=== PATIENT | male | born 1945 | race Caucasian/White ===

== ENCOUNTER → 2023-08-15 12:14 | Outpatient (REF) | payer OTHER, SELFPAY | LOC: HWRAD 12:14 | PROVIDERS: ATTENDING PHYSICIAN Specialist; FAMILY PHYSICIAN Family Medicine | DX: C67.9 Malignant neoplasm of bladder, unspecified (principal) | CPT/HCPCS: 74177; Q9967 ==

== ENCOUNTER → 2023-08-24 12:54 | Outpatient (REF) | payer OTHER, SELFPAY | LOC: RAD 12:54 | PROVIDERS: ATTENDING PHYSICIAN Internal Medicine Critical Care Medicine; FAMILY PHYSICIAN Family Medicine | DX: R91.1 Solitary pulmonary nodule (principal) | CPT/HCPCS: 71250 ==

== ENCOUNTER 2023-09-27 06:22 | Day surgery (SDC) | payer OTHER, SELFPAY ==
[2023-09-21 07:17] VITALS: BMI 28.9
[2023-09-21 08:57] LABS: Hematocrit 43.1 % (39.0-52.0); Hemoglobin 13.9 g/dL (13.0-18.0); Mean Corp Hgb Conc. 32.3 g/dL (33.0-37.0); Mean Corpuscular Hgb 30.3 pg (27.0-31.0); Mean Corpuscular Volume 93.9 fL (80.0-94.0); Mean Platelet Volume 9.4 fL (7.4-10.4); Platelet Count 223 10^3/uL (130-400); Red Blood Cell Count 4.59 10^6/uL (4.70-6.10); Red Cell Dist. Width 13.6 % (11.5-14.5); White Blood Cell Count 8.1 10^3/uL (4.8-10.8)
[2023-09-21 09:05] LABS: APTT 30.1 Sec (23.4-35.0); INR 0.97; PT 12.9 Sec (11.4-14.6)
[2023-09-21 09:31] LABS: Blood Urea Nitrogen 19 mg/dl (9-20); Calcium 9.5 mg/dl (8.4-10.2); Carbon Dioxide 25 mmol/L (22-30); Chloride 104 mmol/L (98-107); Estimated Creatinine Clearance 78 ml/min; Glucose 127 mg/dl (70-99); Potassium 4.6 mmol/L (3.5-5.1); Sodium 138 mmol/L (135-145); eGFR > 60.00
--- NOTE | 2023-09-21 12:03 | PTCARENOTE ---
Patients 09/20 EKG abnormal- reviewed by Dr. Wang- no additional interventions required
[2023-09-27] VITALS (16 sets, daily range): BP systolic 143–207; BP diastolic 73–112; BMI 28.9
[2023-09-27] MEDS: CYSVIEW KIT 100 MG INTRAVES (10:18)
[2023-09-27 10:28] LABS: Glucose - Point of Care 127 mg/dl (70-99)
[2023-09-27] MEDS: NORMOSOL-R 1000 IV (10:37)
[2023-09-27 12:37] LABS: Glucose - Point of Care 122 mg/dl (70-99)
[2023-09-27 14:06] LABS: Glucose - Point of Care 105 mg/dl (70-99)
[2023-09-27] MEDS: SYRINGE NON-PUMP 50 ML IRRIG ×2 (14:16→14:17)
[2023-09-27] MEDS: SYRINGE NON-PUMP 50 MG IRRIG ×2 (14:16→14:17)
[2023-09-27] MEDS: VALIUM INJECTION 5 MG IV (14:26)
[2023-09-27] MEDS: Pyridium 200 MG PO (14:34)
[2023-09-27] MEDS: DILAUDID 0.5 MG IV (15:02)
== END 2023-09-27 16:46 | disposition home or self-care (01) ==
LOC: SDS 06:22
PROVIDERS: ATTENDING PHYSICIAN Specialist; FAMILY PHYSICIAN Family Medicine
DX: C67.7 Malignant neoplasm of urachus (principal)
CPT/HCPCS: 52235; C9738; 88307; 36415; 80048; 82962; 85027; 85610; 85730; 93005; A9589; J9201

== ENCOUNTER → 2023-10-24 08:58 | Outpatient (REF) | payer OTHER, SELFPAY ==
[2023-10-24 09:25] VITALS: BP 160/80; BP_SYST 72
[2023-10-24] MEDS: ANCEF 10 IV (09:51)
[2023-10-24 11:10] VITALS: BP 179/99; BP_SYST 78
[2023-10-24 11:25] VITALS: BP 183/94; BP_SYST 75
== END ==
LOC: RADI 08:58
PROVIDERS: ATTENDING PHYSICIAN Internal Medicine Hematology & Oncology; FAMILY PHYSICIAN Family Medicine
DX: C67.9 Malignant neoplasm of bladder, unspecified (principal)
CPT/HCPCS: 36561; 76937; 77001; 99152; 99153; C1788

== ENCOUNTER → 2023-11-06 11:59 | Outpatient (REF) | payer OTHER, SELFPAY ==
[2023-11-06 12:14] LABS: ALT (SGPT) 25 U/L (0-50); AST (SGOT) 28 U/L (17-59); Albumin 3.7 g/dl (3.5-5.0); Alkaline Phosphatase 143 U/L (38-126); Blood Urea Nitrogen 12 mg/dl (9-20); Calcium 9.4 mg/dl (8.4-10.2); Carbon Dioxide 26 mmol/L (22-30); Chloride 101 mmol/L (98-107); Glucose 140 mg/dl (70-99); Potassium 4.5 mmol/L (3.5-5.1); Sodium 138 mmol/L (135-145); Total Bilirubin 0.5 mg/dl (0.2-1.3); Total Protein 6.4 g/dl (6.3-8.2); eGFR > 60.00
[2023-11-06 12:20] LABS: % Basophils 0.7 % (0-2); % Eosinophils 4.1 % (0-6); % Immature Granulocytes 0.8 % (0-0.5); % Lymphocytes 16.2 % (20.5-51.1); % Monocytes 8.1 % (1.7-9.3); % Neutrophils 70.1 % (42.2-75.2); Absolute Basophils 0.1 10^3/uL (0-0.2); Absolute Eosinophils 0.4 10^3/uL (0-0.7); Absolute Immature Granulocytes 0.1 10^3/uL (0-0.05); Absolute Lymphocytes 1.6 10^3/uL (1.2-3.4); Absolute Monocytes 0.8 10^3/uL (0.1-0.6); Absolute Neutrophils 6.8 10^3/uL (1.4-6.5); Hematocrit 38.5 % (39.0-52.0); Hemoglobin 12.8 g/dL (13.0-18.0); Mean Corp Hgb Conc. 33.2 g/dL (33.0-37.0); Mean Corpuscular Hgb 30.5 pg (27.0-31.0); Mean Corpuscular Volume 91.9 fL (80.0-94.0); Nucleated Red Blood Cells % 0 % (-); Platelet Count 341 10^3/uL (130-400); Red Blood Cell Count 4.19 10^6/uL (4.70-6.10); Red Cell Dist. Width 13.8 % (11.5-14.5); White Blood Cell Count 9.7 10^3/uL (4.8-10.8)
== END ==
LOC: OIDL 11:59
PROVIDERS: ATTENDING PHYSICIAN Internal Medicine Hematology & Oncology
DX: C67.9 Malignant neoplasm of bladder, unspecified (principal); R91.1 Solitary pulmonary nodule; C67.7 Malignant neoplasm of urachus
CPT/HCPCS: 80053; 85025

== ENCOUNTER → 2024-01-24 08:51 | Outpatient (REF) | payer OTHER, SELFPAY | LOC: HWRAD 08:51 | PROVIDERS: ATTENDING PHYSICIAN Nurse Practitioner Adult Health; FAMILY PHYSICIAN Family Medicine; REFERRING PHYSICIAN Internal Medicine Critical Care Medicine | DX: C67.9 Malignant neoplasm of bladder, unspecified (principal); R91.1 Solitary pulmonary nodule; C67.7 Malignant neoplasm of urachus | CPT/HCPCS: 71260; 74177; Q9967 ==

== ENCOUNTER 2024-05-03 05:41 | Day surgery (SDC) | payer OTHER, SELFPAY ==
[2024-04-18 10:44] LABS: Hemoglobin 13.9 g/dL (13.0-18.0); Mean Corp Hgb Conc. 31.6 g/dL (33.0-37.0); Mean Corpuscular Hgb 32.5 pg (27.0-31.0); Mean Corpuscular Volume 102.8 fL (80.0-94.0); Mean Platelet Volume 9.7 fL (7.4-10.4); Platelet Count 175 10^3/uL (130-400); Red Blood Cell Count 4.28 10^6/uL (4.70-6.10); Red Cell Dist. Width 12.9 % (11.5-14.5); White Blood Cell Count 6.7 10^3/uL (4.8-10.8)
[2024-04-18 11:32] LABS: Blood Urea Nitrogen 14 mg/dl (9-20); Calcium 9.2 mg/dl (8.4-10.2); Carbon Dioxide 31 mmol/L (22-30); Chloride 101 mmol/L (98-107); Glucose 137 mg/dl (70-99); Potassium 4.5 mmol/L (3.5-5.1); Sodium 138 mmol/L (135-145); eGFR > 60.00
[2024-04-18 12:31] VITALS: BMI 29.3
--- NOTE | 2024-04-18 14:46 | PTCARENOTE ---
Abnormal EKG reviewed by Dr. Marin, no further action requested.
[2024-05-03] VITALS (9 sets, daily range): BP systolic 121–175; BP diastolic 66–89; BMI 29.3
[2024-05-03 06:37] LABS: Glucose - Point of Care 143 mg/dl (70-99)
[2024-05-03] MEDS: NORMOSOL-R/PLASMALYTE-A 1000 IV (06:41)
[2024-05-03 07:50] LABS: Glucose - Point of Care 176 mg/dl (70-99)
[2024-05-03] MEDS: Pyridium 200 MG PO (08:01)
== END 2024-05-03 09:08 | disposition home or self-care (01) ==
LOC: SDS 05:41
PROVIDERS: ATTENDING PHYSICIAN Specialist; FAMILY PHYSICIAN Family Medicine
DX: C67.9 Malignant neoplasm of bladder, unspecified (principal)
CPT/HCPCS: 52204; 88305; 36415; 80048; 82962; 85027; 93005

== ENCOUNTER → 2024-06-05 07:57 | Outpatient (REF) | payer OTHER, SELFPAY | LOC: RAD 07:57 | PROVIDERS: ATTENDING PHYSICIAN Internal Medicine Hematology & Oncology; FAMILY PHYSICIAN Family Medicine | DX: C67.9 Malignant neoplasm of bladder, unspecified (principal); C67.7 Malignant neoplasm of urachus; R91.1 Solitary pulmonary nodule; I26.99 Other pulmonary embolism without acute cor pulmonale | CPT/HCPCS: 71260; 74177; Q9967 ==

== ENCOUNTER → 2024-09-09 07:57 | Outpatient (REF) | payer OTHER, SELFPAY | LOC: RAD 07:57 | PROVIDERS: ATTENDING PHYSICIAN Internal Medicine Hematology & Oncology; FAMILY PHYSICIAN Family Medicine | DX: C67.9 Malignant neoplasm of bladder, unspecified (principal); R91.1 Solitary pulmonary nodule; C67.7 Malignant neoplasm of urachus; I26.99 Other pulmonary embolism without acute cor pulmonale | CPT/HCPCS: 71260; 74177; Q9967 ==

== ENCOUNTER 2024-11-03 18:13 | Inpatient (IN) | payer OTHER, SELFPAY ==
[2024-11-03] VITALS (13 sets, daily range): BP systolic 102–178; BP diastolic 60–128
--- NOTE | 2024-11-03 15:41 | ED.GENMED ---
History of Present Illness
General
Chief Complaint: Weakness
Source: patient and ambulance crew
Time Seen by Provider: 11/03/24 15:32
History of Present Illness
History of Present Illness:
78-year-old male with past medical history of hypertension, hyperlipidemia, insulin-dependent diabetes, previous bladder cancer, PE presenting to the emergency department from home for reported generalized weakness and a few episodes of nonbloody
nonbilious emesis and intermittent nausea. Patient reportedly took 2 tablets of Advil around lunchtime but no other medications today, EMS reports family was concerned that patient had not eaten or drank much today. They report his blood sugar at
time of their evaluation was 180. At present time during my exam patient's only concern is feeling weak. He denies any pain, chest pain, abdominal pain, current nausea, urinary symptoms, bowel changes, other URI-like symptoms. No known sick
contacts, recent travel or recent antibiotics. Patient finished his chemotherapy treatments for his bladder cancer back in December or January.
Past History
Past History
ED Past Medical History: Cancer, HTN, Hypercholesterolemia, IDDM (No oral meds for this) and Other (Pulmonary embolism)
ED Past Surgical History: Appendectomy, Urological and Other
Social History
Tobacco: Former smoker
Alcohol: None
Drug: None
Personal:
Living: with family
Review of Systems
Review of Systems
All Other Systems: ROS reviewed and negative except as documented in HPI and ROS
Phy Exam
Physical Exam
Physical Exam:
GENERAL: Alert , ill-appearing, diaphoretic, very hot to the touch
HEAD: Normocephalic atraumatic
EYE: Clear conjunctiva
NECK: Supple, no meningismus
ENT: o/p clr, mmm.
CARDIAC: Tachycardic rate as high as 135 bpm
LUNGS: Clear breath sounds bilaterally, no acute respiratory distress, no wheezes/rales/rhonchi
ABDOMEN: Soft, without focal tenderness, no r/g, no cvat
NEUROLOGICAL: Alert and oriented x3
SKIN: Hot to the touch, clammy, skin intact.
MUSCULOSKELETAL: No edema, well perfused.
PSYCH: Normal and appropriate interaction.
Scores
Heart Failure Risk
Heart Failure Risk Score: Not Applicable
Heart Score for Chest Pain Patients
STEMI patient?: Not applicable
Withdrawal Assessment of Alcohol
Withdrawal Assessment Completed?: Not applicable
Sepsis
Sepsis Screening
Sepsis Assessment: Severe Sepsis
Sepsis Screening: Lactate >2mmol/L and Worsening O2 Saturation
Sepsis Screen
Sepsis Screen: Severe Sepsis
Date: 11/03/24
Time: 22:51
Course
Orders/Labs/Results
Orders:
Orders
11/03/24 Dinner
Cholesterol Lowering
Cholesterol Lowering: Sodium, 2 Gram
1800 abraham/15 CHO Diabetic
11/03/24 15:36
Electrocardiogram (*1) Urgent
Reason for Study: Other
Other Reason for Exam: Possible Sepsis
EKG- Treatment ONCE
IV Insert/Care/Rem.- Treatment PRN
O2 Therapy [RESP] Urgent
Titrate/Wean O2 to maintain O2 sat greater than (%): 93
Special Instructions: TO MAINTAIN CONTINUOUS O2 SATS > OR = 93%
11/03/24 15:38
0.9% Sodium Chloride 1000 ml [Nss] 2,000 ml IV NOW STA
Acetaminophen [Tylenol] 1,000 mg PO NOW STA
CR Chest Portable - 1 View Urgent
Comment:
Reason For Exam: fever, weak
Reason Study Needs to be Portable: Unable to Transport
11/03/24 15:44
Basic Metabolic Panel Urgent
Complete Blood Count/With Diff Urgent
Lactic Acid Q4H
Comment: ON ICE, CANCEL 2ND ORDER IF FIRST LACTIC ACID LEVEL <2
Urinalysis Reflex To Culture Urgent
Date Specimen was Collected: 11/03/24
Time Specimen was Collected: 15:36
Urine Microscopic Reflex Cult Urgent
Blood Culture Q20M
KAMALJIT Source: Blood/Venous
Specimen Description:
Comment: Urgent from separate sites. If patient screens positive for possible sepsis
Blood Culture Q20M
KAMALJIT Source: Blood/Venous
Specimen Description:
Comment: Urgent from separate sites. If patient screens positive for possible sepsis
Urine Culture Urgent
KAMALJIT Source: U
Specimen Description:
Date Specimen was Collected: 11/03/24
Time Specimen was Collected: 15:36
11/03/24 15:49
Acetaminophen 1000MG/100Ml [Ofirmev] 1,000 mg in 100 ml IV ONCE
Acetaminophen IV Indication:: No OK & No Enteral Access
Ondansetron Injectable [Zofran] 4 mg IV NOW STA
11/03/24 16:27
0.9% Sodium Chloride 1000 ml [Nss] 1,000 ml IV BOLUS
11/03/24 16:49
Piperacillin/Tazo 3.375 Gram [Zosyn] 3.375 gram in 50 ml IV NOW
11/03/24 17:08
CT Abd/pel Without Iv Or Oral Urgent
Comment:
Reason For Exam: fever, ? UTI, vomiting
11/03/24 17:46
Vancomycin [Vancocin] 2,000 mg 0.9% Sodium Chloride 500 ml [Nss] 500 ml IV NOW
11/03/24 17:59
Admit/Transfer Patient As Directed
Co-Sign Provider:
Level of Care: Inpatient admission
Assign to:: ICU
Physician / Group: [email or web address]
Diagnosis: severe sepsis , possible colitis vs UT vs PNA , New AF
Reason for Hospitalization: severe sepsis , possible colitis vs UT vs PNA , New AF
Expected length of stay greater than two midnights?: Yes
ELOS- Estimated Length of Stay in days: 4
I certify the patient meets the requirements for IP care: Yes
11/03/24 18:02
Code Status As Directed
Resuscitation Status: Full Code
11/03/24 18:34
COVID-19 Antigen Urgent
Source: Nasal Swab
11/03/24 19:56
Lactic Acid Q4H
Comment: ON ICE, CANCEL 2ND ORDER IF FIRST LACTIC ACID LEVEL <2
11/03/24 22:08
Lactic Acid Q4H
Comment: repeat q4 hours x 4 or until less than 2 mmol/L
Blood Culture Q30M
KAMALJIT Source: Blood/Venous
Specimen Description:
Comment: IF NOT OBTAINED IN ED
Aspirin Low Dose EC [Aspir Low (Enteric Coated)] 81 mg PO HS
Dextrose 50%-Water [Dextrose 50% Syringe] 12.5 grams IV [id number] PRN
Glucagon [GlucaGen] 1 mg IM PRN PRN
Lactated Ringers [Lr] 1,000 ml IV 80 mls/hr
Lisinopril [Zestril] 10 mg PO HS
Metoprolol [Lopressor] 5 mg IV Q4HPRN PRN
11/03/24 22:08
Urinalysis Reflex To Culture Urgent
Activity As Directed
Activity Level: With Assistance
Bedside Glucose Monitoring As Directed
Frequency: AC&HS
Additional Instructions:: Change to q6h if pt on TPN, tube feeding or not eating
Intake/ Output As Directed
Frequency: Per unit guidelines
Vital Signs As Directed
Frequency: Per unit guidelines
Weight As Directed
Frequency: Daily
DX Deep Vein Thrombosis Video Routine
11/03/24 22:38
Blood Culture Q30M
KAMALJIT Source: Blood/Venous
Specimen Description:
Comment: IF NOT OBTAINED IN ED
11/04/24 00:00
Piperacillin/Tazo 3.375 Gram [Zosyn] 3.375 gram in 50 ml IV Q6H
11/04/24 02:08
Lactic Acid Q4H
Comment: repeat q4 hours x 4 or until less than 2 mmol/L
11/04/24 06:00
Echo 2D MMode Color/Doppler IN AM
Reason for Study: new AF
Complete Blood Count/No Diff IN AM
Comprehensive Metabolic Panel IN AM
Glycohemoglobin (HgbA1c) IN AM
11/04/24 06:08
Lactic Acid Q4H
Comment: repeat q4 hours x 4 or until less than 2 mmol/L
11/04/24 07:30
Insulin Aspart Corrective Low [Novolog Flexpen-Low Resistance] See Protocol SC AC
11/04/24 10:08
Lactic Acid Q4H
Comment: repeat q4 hours x 4 or until less than 2 mmol/L
11/04/24 18:00
Enoxaparin Sodium [Lovenox] 40 mg SC QPM
Abnormal Lab Results
11/03/24 11/03/24
15:43 15:44
WBC 17.1 H 10^3/uL
(4.8-10.8)
Abs Immat Gran (auto) 0.9 H 10^3/uL
(0-0.05)
Absolute Neuts (auto) 14.9 H 10^3/uL
(1.4-6.5)
Absolute Lymphs (auto) 0.4 L 10^3/uL
(1.2-3.4)
Absolute Monos (auto) 0.8 H 10^3/uL
(0.1-0.6)
Immature Gran % 5.1 H %
(0-0.5)
Neutrophils % 87.4 H %
(42.2-75.2)
Lymphocytes % 2.4 L %
(20.5-51.1)
Carbon Dioxide 17 L mmol/L
(22-30)
BUN 23 H mg/dl
(9-20)
Glucose 193 H mg/dl
(70-99)
Lactic Acid 2.9 H mmol/L
(0.7-2.0)
Urine Ketones 2+ A
(Negative)
Ur Occult Blood Reflex 4+ A
(Negative)
Leukocyte Esterase Rfl 1+ A
(Negative)
Urine RBC 26-30 A /HPF
(0-2)
Urine WBC (Reflex) 11-15 A /HPF
(0-5)
Urine Bacteria (Reflex) Few A
(Negative)
Urine Albumin (Reflex) 3+ A
(Neg - Trace)
POC Glucose 173 H mg/dl
(70-99)
11/03/24 15:44
11/03/24 15:44
Vital Signs
Initial and Last Documented VS:
Initial Vital Signs
Temp Pulse Resp BP Pulse Ox
103.1 F H 142 30 167/68 94
11/03/24 15:38 11/03/24 15:38 11/03/24 15:38 11/03/24 15:38 11/03/24 15:38
Last Documented Vital Signs
Temp Pulse Resp BP Pulse Ox
99.3 F 107 29 113/64 92
11/03/24 22:43 11/03/24 22:34 11/03/24 22:34 11/03/24 22:34 11/03/24 22:37
MDM/Problems Addressed
Differential Diagnosis Includes:
Sepsis/bacteremia
Urinary tract infection
Pneumonia
COVID
Other viral etiology
Intra-abdominal process
Hyperglycemia/diabetic complication
Heat exhaustion/other heat related illness
New onset atrial fibrillation likely induced by infectious source
MDM/Problems Addressed:
78-year-old male presenting to the ER for evaluation of reported generalized weakness, nausea and vomiting at home, found to be profoundly febrile here at 103.1, diaphoretic. Patient ill-appearing but maintaining airway, speaking full sentences and
answering questions appropriately. Sepsis workup initiated. Tylenol ordered for pyrexia. Anticipate patient will need admission.
Chronic conditions affecting care: DM and Cancer
*Radiology
Radiology exam reviewed: preliminary read by ED provider (Questionable right midlung infiltrate) and radiology read reviewed
*Pulse Oximetry
SaO2: 94
Oxygen Mode of Delivery: Room air
Patient hypoxic: no
*EKG
Interpreted by ED Provider?: Yes
Heart Rate: 134
Rate: tachycardiac
Rhythm: a-fib
[place]: left axis deviation
QRS Pattern: left bundle branch block and right bundle branch block
*Reading Coach Interpretation
Rate: tachycardiac
Heart Rate: 133
Rhythm: a-fib
*Critical Care Note
Total Time (30-74mins, 75-104mins- exclusive of procedures): 35
comment:
Critical care statement: A total of 35 minutes of critical care time was provided for this patient. This includes management of unstable vital signs, evaluation of the patient at bedside, reviewing the patient's pertinent medical records, discussion
with consultants, review of old EKGs and review of pertinent medical records. This time with separate from time utilized to perform the aforementioned documented procedures
Data Reviewed
Review of Other/Old Records Reveals: Labs and Records
Comment
Comment:
Shortly after leaving the room, patient proceeded to have more vomitus, question aspiration. Ofirmev ordered as well as Zofran.
Patient Management
Discussion with other providers: Hospitalist, Head Knitting Machine Fixer and Radiologist
Escalation/DeEscalation of care consider admission/obs:
I ordered the CT scan of the abdomen and pelvis given the patient's chest x-ray not overly convincing for pneumonia although I do suspect there could be a right midlung infiltrate. When I went to reevaluate the patient following initial fluids and
antibiotics patient did appear better, tachycardia improved to around 115 bpm. Family is now at the bedside and patient is also stating he feels as if he is having a hard time moving his right leg. There are no outward signs of infection or
traumatic injury. I ordered a CT scan of the abdomen and pelvis to evaluate for any intra-abdominal etiologies of infection given the unclear source for infection.
I was notified by radiology that there are findings within the right thigh and pelvis concerning for necrotizing fasciitis. I notified general surgery who evaluated the patient and imaging, will see the patient in consult, agrees with antibiotic
plan, admit to the ICU. Hospitalist team was notified and accepts for continued evaluation and treatment.
ED Attending Note
-
Portions of this chart may have been created with voice recognition software.� Occasional wrong word or��sound alike� substitutions may have occurred due to the inherent limitations of voice recognition software.
Discharge Plan
Departure
Patient Disposition: Admit
Date of Disposition: 11/03/24
Time of Disposition: 17:02
Presentation/result/management discussed w/ accepting MD/DO: Hospitalist
Discharge Problem:
Pneumonia
Interventions
Interventions:
*Risk Screen - Suicide Last Done: 11/03/24 15:38
*General Assessment Last Done: 11/03/24 15:38
*Neglect/Abuse Screening Last Done: 11/03/24 15:38
*ED- Fall Risk Assessment Last Done: 11/03/24 15:38
*ED COVID-19 Vaccine History Last Done: 11/03/24 15:38
*Nursing Disposition Last Done: 11/03/24 21:00
ED- Cardiac Assessment Last Done: 11/03/24 16:28
ED- Neurological Assessment Last Done: 11/03/24 16:28
ED- Pulmonary Assessment Last Done: 11/03/24 16:28
Discharge Date and Time
Discharge Date/Time: 11/03/24 20:50
[2024-11-03 15:47] LABS: Glucose - Point of Care 173 mg/dl (70-99)
[2024-11-03] MEDS: OFIRMEV 100 IV (15:58)
[2024-11-03] MEDS: NSS 2000 ML IV (15:59)
[2024-11-03] MEDS: ZOFRAN 4 MG IV ×2 (15:59→19:58)
[2024-11-03 16:00] LABS: Hematocrit 44.3 % (39.0-52.0); Hemoglobin 15.1 g/dL (13.0-18.0); Mean Corp Hgb Conc. 34.1 g/dL (33.0-37.0); Mean Corpuscular Volume 90.6 fL (80.0-94.0); Platelet Count 155 10^3/uL (130-400); Red Cell Dist. Width 13.7 % (11.5-14.5)
[2024-11-03 16:08] LABS: Blood Urea Nitrogen 23 mg/dl (9-20); Calcium 9.3 mg/dl (8.4-10.2); Carbon Dioxide 17 mmol/L (22-30); Chloride 107 mmol/L (98-107); Estimated Creatinine Clearance 67 ml/min; Glucose 193 mg/dl (70-99); Sodium 136 mmol/L (135-145); eGFR > 60.00
[2024-11-03 16:35] LABS: Urine Character Clear (Clear)
[2024-11-03 16:49] LABS: Urine Red Blood Cell 26-30 /HPF (0-2)
[2024-11-03] MEDS: ZOSYN 50 IV (17:07)
[2024-11-03] MEDS: NSS 1000 IV (17:11)
[2024-11-03 17:23] LABS: Nucleated Red Blood Cells % 0 % (-)
--- NOTE | 2024-11-03 17:35 | HPS.HSE ---
Family Physician
-
Family Physician: Tia Chavarria
Chief Complaint
-
weakness and a few episodes of nonbloody nonbilious emesis and intermittent nausea.
History of Present Illness
HPI
78F HX hypertension, hyperlipidemia, insulin-dependent diabetes, previous bladder cancer, PEseen at ER:
- for reported generalized weakness and a few episodes of nonbloody nonbilious emesis and intermittent nausea.
- took 2 tablets of Advil around lunchtime but no other medications today,
- EMS reports family was concerned that patient had not eaten or drank much today.
- BG 180.
Patient finished his chemotherapy treatments for his bladder cancer back in December or January.
No known sick contacts, recent travel or recent antibiotics.
Medical History
Past Medical History
Past Medical History: Reports Cancer (prostate CA - last Tx in December or January 2024 ), HTN, Hypercholesterolemia and IDDM
Past Surgical History: Reports None
Social History
Tobacco: Former Smoker
Alcohol: None
Drug: None
Personal:
Living: With Family
Family History
Family History: Not pertinent
Allergies / Home Medications
Allergies reflects when Allergies were last updated in [facility].
Home Medications with original date entered in [facility]
Allergy/Medication List:
Allergies
Allergy/AdvReac Type Severity Reaction Status Date / Time
No Known Allergies Allergy Verified 11/03/24 15:32
Home Medications
rosuvastatin 10 mg tablet 10 mg PO HS High cholesterol 07/18/11
lisinopril 10 mg tablet 10 mg PO HS Blood pressure 09/16/20
aspirin 81 mg tablet,delayed release 81 mg PO HS 11/03/24
ibuprofen 200 mg tablet (Advil) 400 mg PO TIDPRN PRN mild pain 11/03/24
insulin aspart U-100 100 unit/mL (3 mL) subcutaneous pen (Novolog FlexPen U-100 Insulin aspart) 0 sliding scale dose SC AC 11/03/24
insulin glargine 100 unit/mL (3 mL) subcutaneous pen (Lantus Solostar U-100 Insulin) 30 unit SC HS 11/03/24
Review of Systems
-
Constitutional: Reports See HPI
EENT: Reports No Symptoms
Respiratory: Reports No Symptoms
Cardiac: Reports No Symptoms
Abdomen/GI: Reports No Symptoms
: Reports No Symptoms
Musculoskeletal: Reports No Symptoms
Skin: Reports No Symptoms
Neurological: Reports No Symptoms
Endocrine: Reports No Symptoms
Hematologic/Lymphatic: Reports No Symptoms
Psych: Reports No Symptoms
Physical Exam
Vital Signs
Vital Signs
Temp Pulse Resp BP Pulse Ox
103.1 F H 121 37 178/82 96
11/03/24 15:38 11/03/24 16:30 11/03/24 16:30 11/03/24 16:00 11/03/24 16:30
Physical Exam
General: Well Developed, Well Nourished and No Apparent Distress
HEENT: NormoCephalic, Moist mucous membranes and Atraumatic
Respiratory: Clear
Cardiac: S1/S2 and Regular Rhythm; No Murmur or Rub
GI: Soft, Non Tender, Non Distended, Normal Bowel Sounds and Other (large centrl mid abdominal hernia ? ); No Organomegaly or No Hernias
Rectal: Deferred by Provider
Musculoskeletal: No Clubbing, No Cyanosis and No Edema
Skin: IV/Catheter Site (Rt chest PORT - Non tender ) and Other; No Rash
Neuro: Nonfocal/grossly intact
Laboratory Results
-
11/03/24 15:44
11/03/24 15:44
Laboratory Results
Lactic Acid 2.9 mmol/L (0.7-2.0) H 11/03/24 15:44
Total Bilirubin Cancelled 11/03/24 15:44
AST Cancelled 11/03/24 15:44
ALT Cancelled 11/03/24 15:44
Alkaline Phosphatase Cancelled 11/03/24 15:44
Data Reviewed
-
Diagnostic Radiology: Other (pending CXR )
Medical Tests (Nuc Med, Echo, EKG etc): Report Reviewed by me
Lab Data: Labs Reviewed by me
Impression/Plan
-
11/03/24
15:38
Temp 103.1 F H
Pulse 142
Resp Rate 30
Blood pressure 167/68
SaO2 94
Oxygen Mode of Delivery Room air
Actual Weight 97.8 kg
Labs
11/03/24 11/03/24
15:44 19:45
WBC 17.1 H
Immature Gran % 5.1 H
Carbon Dioxide 17 L
BUN 23 H
Creatinine 1.0
eGFR > 60.00
Glucose 193 H
Lactic Acid 2.9 H Pending
11/03/24
15:44
Leukocyte Esterase Rfl 1+ A
Urine RBC 26-30 A
Urine WBC (Reflex) 11-15 A
Urine Bacteria (Reflex) Few A
BC sent
Pending Covid
EKG
ATRIAL FIBRILLATION WITH RAPID VENTRICULAR RESPONSE
RIGHT BUNDLE BRANCH BLOCK
LEFT ANTERIOR FASCICULAR BLOCK
BIFASCICULAR BLOCK
MINIMAL VOLTAGE CRITERIA FOR LVH, MAY BE NORMAL VARIANT ( R in aVL )
SEPTAL INFARCT (CITED ON OR BEFORE 18-APR-2024)
ABNORMAL ECG
WHEN COMPARED WITH ECG OF 18-APR-2024 09:15,
ATRIAL FIBRILLATION HAS REPLACED SINUS RHYTHM
VENT. RATE HAS INCREASED BY 65 BPM
QUESTIONABLE CHANGE IN INITIAL FORCES OF SEPTAL LEADS
ST NOW DEPRESSED IN ANTERIOR LEADS
CXR report pending
CT AP wo pending
NO PRIOR hospitalist admission:
ASSESSMENT & PLAN
Severe sepsis source is uncertain GI vs UTI vs PNA
Not hypotensive
- s/p septic IV NS 3 L - then cont LR IV @ 80
- Empiric IV vanco and Zosyn
- BCx sent
- UA reflex to UCX
- FU w/u: CT AP wo, CXR
New onset AF
- permissive HR is up to 139 during septic pathjophysiology
- IV Metoprolol q6H PRN for HR > 140
- TTE in AM
- CBC Card consult
Poor PO intake
HX IDDM
- add ISS low
- cont Lantus [address] of 30 u HS
Benign HTN
Nl Cr and eGFR
- cont Lisinopril with hold index for SBP < 120
HLD
- on Rosuvastatin
HX PE
- not on DOAC
HX Bladder CA
Non tender PORT at Rt Chest
- last chemotherapy treatments for his bladder cancer back in December or January.
DVT Px: LMWH
Full code
IMU
[2024-11-03] MEDS: VANCOCIN 540 MG IV (18:27)
[2024-11-03 18:47] LABS: Glucose - Point of Care 169 mg/dl (70-99)
[2024-11-03 19:00] LABS: COVID-19 Antigen Negative (Negative)
--- NOTE | 2024-11-03 20:46 | CON.GS ---
Medical History
-
Chief Complaint: Altered mental status and nausea
History of Present Illness:
Patient is a 78 yo M with a PMH notable for HTN, HLD, IDDM, PE (previously on Eliquis), s/p appendectomy, s/p multiple arterial procedures by Dr. 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
lymphadenectomy in 2020 c/b recurrence s/p TURBT with intravesicular and systemic chemotherapy. Mr. Angulo presents with worsening altered mental status and fevers over the past 48 hours. Associated nausea and vomiting today prompting presentation
to the ER. He reports issues with RLE discomfort and immobility. He denies any specific trauma to the RLE. No known wounds of the RLE. 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 He ambulates normally at baseline. He
denies any urinary symptoms.
Of note, he follows with Dr. Dmitri Beebe and Cabrera Paredes for his bladder cancer. During one of his surveillance CT scans of the chest he was noted to have a PE. He was on Eliquis for approximately 6 months but has been off Eliquis for over 1
month. His last dose of chemotherapy was back in December 2023.
Past Medical History
Past Medical History: HTN, Hypercholesterolemia, IDDM and Other
Past Surgical History: Appendectomy and Urological (RAL excision of urachus and partial cystectomy with lymphadenectomy in 2020, TURBT)
Social History
Tobacco: Former Smoker
Alcohol: None
Drug: None
Family History
Family History: Reviewed & Not Pertinent
Allergies / Home Medications
Allergy/AdvReac Type Severity Reaction Status Date / Time
No Known Allergies Allergy Verified 11/03/24 15:32
�Medication �Instructions �Recorded �Confirmed �Type
rosuvastatin 10 mg tablet 10 mg PO HS High cholesterol 07/18/11 11/03/24 History
lisinopril 10 mg tablet 10 mg PO HS Blood pressure 09/16/20 11/03/24 History
aspirin 81 mg tablet,delayed 81 mg PO HS 11/03/24 11/03/24 History
release
ibuprofen 200 mg tablet (Advil) 400 mg PO TIDPRN PRN mild pain 11/03/24 11/03/24 History
insulin aspart U-100 100 unit/mL 0 sliding scale dose SC AC 11/03/24 11/03/24 History
(3 mL) subcutaneous pen (Novolog
FlexPen U-100 Insulin aspart)
insulin glargine 100 unit/mL (3 30 unit SC HS 11/03/24 11/03/24 History
mL) subcutaneous pen (Lantus
Solostar U-100 Insulin)
Review of Systems
-
A 10 point review of systems was completed, and was negative except as per HPI.
Physical Exam
Vital Signs
Temp Pulse Resp BP Pulse Ox
100.9 F H 115 43 124/83 98
11/03/24 18:24 11/03/24 20:30 11/03/24 20:30 11/03/24 20:30 11/03/24 20:30
11/02/24 11/03/24 11/04/24
06:59 06:59 06:59
Actual Weight 97.8 kg
Lab Results
11/03/24 15:44
11/03/24 15:44
WBC 17.1 10^3/uL (4.8-10.8) H 11/03/24 15:44
Hgb 15.1 g/dL (13.0-18.0) 11/03/24 15:44
Hct 44.3 % (39.0-52.0) 11/03/24 15:44
Plt Count 155 10^3/uL (130-400) 11/03/24 15:44
Abs Immat Gran (auto) 0.9 10^3/uL (0-0.05) H 11/03/24 15:44
Neutrophils % 87.4 % (42.2-75.2) H 11/03/24 15:44
Physical Exam
General: Fever, Chills, Sweats and Other (Good mentation)
Respiratory: Accessory Resp Muscle Use
Cardiac: Regular Rhythm
GI: Soft, Non Tender and Non Distended
Musculoskeletal: Other (RIGHT LE with weakness, pain of thigh, medial thigh with slight skin discoloration, no bullae, no palpable crepitus, mild induration, no palpable fluid collection)
Skin: Warm and Dry
Neuro: Other (sensation decrease slightly in bl LE, RLE weakness 2/5, LLE strength 5/5)
Data Reviewed
-
CT Scan: Image Personally Visualized and interpreted and Report Reviewed by me
Labs: Labs Reviewed by me
Old Records: Reviewed
Assessment / Plan
-
Patient is a 78 yo M p/w sepsis secondary to necrotizing fasciitis of the RLE
The natural history and pathophysiology of necrotizing fasciitis was discussed. Options for management were reviewed. Recommend emergent operative exploration and debridement. Risks of delaying care and worsening of his infectious process with
medical management alone were reviewed. Patient and agree to proceed.
Plan for incision and debridement of the RIGHT lower extremity. The procedure itself, as well as the risks, benefits, and alternatives was discussed. Specifically, we discussed the risks of bleeding, infection, injury to surrounding structures
(muscle, nerves, blood vessels), wound complications, anesthetic complications, and need for further procedures. We discussed that oftentimes multiple operative explorations and debridement are needed. We discussed likely prolonged hospital stay
and management of his sepsis and wound. All questions answered. Consent signed.
-- Incision and debridement of RIGHT lower extremity necrotizing fasciitis
-- NPO, IVF
-- Antibiotics: Vancomycin, Zosyn, and clindamycin, will likely need ID consultation, will obtain operative cultures
-- Wound care consult for post-op assistance
-- Admit to ICU or IMU postop on hospital service
--- NOTE | 2024-11-03 21:09 | W.SUR.PREOP ---
Pre-Operative Surgical Note
-
I have examined this patient prior to the performance of the scheduled procedure.
The patient's condition is unchanged from the time of the current History and
Physical and the patient is able to undergo the scheduled procedure.
--- NOTE | 2024-11-03 22:05 | W.IMMPOSTOP ---
Surgical Immed Post Op Note
-
Primary Surgeon: Samuel
Assisting Surgeon: None
Pre-op Diagnosis: Necrotizing fasciitis
Post-op Diagnosis: Necrotizing fasciitis
Procedure Performed: Incision and drainage of RIGHT lower extremity
Anesthesia Type: General
Specimen / Cultures:
1. RIGHT inner thigh wound culture
Estimated Blood Loss: 7 cc
Complications: None
Operative Findings:
1. Linear 10 cm incision made overlying the area of maximal skin change within the RIGHT inner thigh, carried down through all muscle layers to the femur
2. Clear dishwater fluid evacuated mostly at subcutaneous and deep fascial layer overlying the femur, culture obtained
3. All muscles viable and healthy, fascial layers viable, no purulence encountered
4. [place] drain placed down to deep fascial plane overlying femur to promote drainage, muscle and soft tissue packed with Kerlix for hemostasis
[2024-11-03 22:27] LABS: Glucose - Point of Care 171 mg/dl (70-99)
--- NOTE | 2024-11-03 22:43 | W.PN.UPDATE ---
Update Note
Progress Note Update
CT Abd/pel Without Iv Or Oral
- There is air density within the right proximal thigh adductor musculature as well as the adjacent fascial planes, with edema within the fascial planes as well. There is also air density within the marrow of the right superior pubic ramus medially.
Findings raise concern for necrotizing fasciitis.
Stranding of the fat adjacent to the ileocecal junction, with soft tissue prominence. Considerations include diverticulitis, ileocecitis, and neoplasia. The appendix is not confidently identified, and the patient has a reported history of
appendectomy in 1958.
In the visualized lungs, findings of bronchitis, new from previous exam. Increasing patchy parenchymal opacity within both lower lobes compared to examination of September 09, 2024. Parenchymal opacity could represent atelectasis and/or pneumonia.
Dense coronary artery calcifications. Please correlate with symptoms of and risk factors for coronary artery disease, with further workup as clinically appropriate.
Fatty infiltration the liver. Fatty atrophy of the pancreas.
Plaque-like soft tissue density off the right anterior and inferior margin of the bladder, superior to the right superior pubic ramus, which appears stable from previous exam of September 09, 2024. This may be related to previous treatment for bladder
cancer, and continued follow-up is advised.
IMPRESSION
- Concerning for necrotizing fasciitis of the RLE complicated by severe sepsis
PLAN:
- Urgent consulted to GS then immediately Incision and drainage of RIGHT lower extremity proceeded to OR for incision and drainage of RIGHT lower extremity
- cont. IV Vanco and Zosyn
- Upgrade to ICU post OP
--- NOTE | 2024-11-03 22:43 | PHA.VAN.IN ---
Assessment
- Assessment
Renal Function: Appears similar to baseline
Maximum Temperature: 103.1
Minimum Temperature: 99.3
Concomitant Antimicrobials: PIP/TAZO
AUC Dosing Plan
- Dosing Variables
Dosing Weight (kg): 97.8
Dosing CrCl (ml/min): 67
Vd coefficient (L/kg): 0.7
- Empiric Dosing
Initial / Loading Dose: 2000mg-11/03
Maintenance Regimen: 1000mg Q12H starting on 11/04
Estimated AUC (mcg*h/mL): 501
Estimated Peak (mcg*h/mL): 28.5
Estimated Trough (mcg/ml): 14.7
Estimated Half Life (H): 11.5
- Monitoring
No levels ordered at this time: Consider levels in next few days
Pharmacokinetics Vancomycin I
- -
Patient Age: 78
Patient Sex: Male
Vancomycin Day #: 1
Indication: Bacteremia
Requesting Provider: Dr. Juarez
Pertinent Antimicrobial Allergies:
NKDA
Height / Weight:
Height 6 ft
Actual Weight 97.8 kg
- Vital Signs / Lab Results
Temp Pulse Resp BP Pulse Ox
99.3 F 111 43 115/102 98
11/03/24 22:15 11/03/24 22:17 11/03/24 20:30 11/03/24 22:15 11/03/24 20:30
Lab Results - Hematology
11/03/24
15:44
WBC 17.1 H
Lab Results - Chemistry
11/03/24
15:44
BUN 23 H
Creatinine 1.0
Estimated Creat Clear 67
Albumin Cancelled
11/03/24 11/03/24
15:44 19:56
Lactic Acid 2.9 H 2.3 H
Lab Results - Urine
07/06/25
15:44
Urine Nitrite (Reflex) Negative
Leukocyte Esterase Rfl 1+ A
Urine WBC (Reflex) 11-15 A
Ur Squamous Epith Cells 3-5
Urine Bacteria (Reflex) Few A
[2024-11-03 23:03] LABS: Glucose - Point of Care 189 mg/dl (70-99)
[2024-11-03] MEDS: LR 1000 IV (23:03)
[2024-11-03] MEDS: CLEOCIN 50 IV (23:24)
[2024-11-03] MEDS: LANTUS 0.2 UNITS SC (23:24)
[2024-11-03] MEDS: ASPIR LOW (ENTERIC COATED) 81 MG PO (23:24)
[2024-11-03] MEDS: NOVOLOG FLEXPEN 2 UNITS SC (23:25)
[2024-11-04] VITALS (76 sets, daily range): BP systolic 80–181; BP diastolic 46–98; BMI 28.7
[2024-11-04] MEDS: ZOSYN 50 IV ×5 (00:14→23:25)
[2024-11-04] MEDS: LEVOPHED 250 IV ×2 (00:20→15:32)
[2024-11-04 00:23] LABS: Magnesium 1.8 mg/dl (1.6-2.3)
[2024-11-04 00:35] LABS: Hematocrit 39.0 % (39.0-52.0); Hemoglobin 13.0 g/dL (13.0-18.0)
--- NOTE | 2024-11-04 00:49 | W.PN.SEPSIS ---
Sepsis
Vital Signs
Temp Pulse Resp BP Pulse Ox
98.1 F 107 29 102/61 96
11/03/24 23:10 11/03/24 22:34 11/03/24 22:34 11/03/24 23:03 11/03/24 23:37
Physical Exam
Physical Exam:
A focused exam was performed after fluid resuscitation.
Capillary Refill
Bilateral Upper Extremity:
Arnold Time: Less than 3 sec
Bilateral Lower Extremity:
Arnold Time: Less than 3 sec
Pulse Evaluation
Bilateral Radial:
Pulse Evaluation: Present
Bilateral Dorsalis Pedis:
Pulse Evaluation: Present
[2024-11-04] MEDS: MELATONIN 5 MG PO (01:02)
[2024-11-04 01:13] LABS: APTT 34.9 Sec (23.4-35.0); CKMB 38.2 ng/ml (0.0-3.4); INR 1.60; PT 19.3 Sec (11.4-14.6)
--- NOTE | 2024-11-04 01:54 | PTCARENOTE ---
Late entry: 2244 pt arrived from PACU via bed. A/O x4 but forgetful, sometimes repeating the same questions multiple times. [place]. No c/o pain. R thigh dressing intact with small amount of sanguinous drainage to posterior side of yaron wrap. Pt with
limited ROM to RLE but neurovascularly intact otherwise (see neurovascular assessment on worklist). Admission database completed. Physical assessment as documented in nursing shift assessment flowsheet. ST low 100s on monitor. Arrived on 6LNC, SpO2
96%. CHG cloth bath done.
0015: Pt reporting pain/pressure to lower abd. Pt also noted to have more sanguinous drainage underneath of him, extending onto the sheet. Pt turned to assess his leg/dressing and change the sheet/pad. When turned, posterior thigh noted to be
ecchymotic above and below dressing, also felt indurated upon palpation and dressing felt like it was possibly too tight/constrictive. Yonas ARDON to bedside to assess. Pt turned back to supine and from that position the thigh was not as
firm/edematous, neurovascular assessment also unchanged. She palpated pt's abd where he was c/o pain, he verbalized that this made it feel better and no longer complained of the pain/pressure feeling afterwards.
0020: BP now in 80s/50s, MAPs in upper 50s/low 60s, Levophed started (see med titration flowsheet on worklist).
0045: Pt reports that he can't sleep, requesting something to help him sleep, Melatonin 5mg ordered, see EMAR for administration details.
[2024-11-04] MEDS: NSS 1000 IV ×2 (02:43→18:18)
--- NOTE | 2024-11-04 02:52 | PTCARENOTE ---
At around 0215 went in to assess urine output, pt noted to have made 11mL total between [id number]. Bladder scan done to ensure that catheter was working properly and pt not retaining, given that he had been c/o abd pain/pressure earlier. Bladder
scan showed 0mL. Yonas ARDON made aware, 1000mL NS bolus ordered, see EMAR.
[2024-11-04] MEDS: DILAUDID 0.5 MG IV (03:27)
[2024-11-04 04:35] LABS: Hematocrit 38.3 % (39.0-52.0); Hemoglobin 12.5 g/dL (13.0-18.0); Mean Corp Hgb Conc. 32.6 g/dL (33.0-37.0); Mean Corpuscular Volume 94.8 fL (80.0-94.0); Platelet Count 137 10^3/uL (130-400); Red Cell Dist. Width 14.2 % (11.5-14.5)
--- NOTE | 2024-11-04 04:48 | PTCARENOTE ---
Urine output remains poor after NS bolus, only 7mL between 0215 and 0400. Remains on 2mcg/min of Levophed to maintain MAP >65. Lungs still with crackles but only in b/l bases now which is improved from earlier. Pt reporting pain in lower abd still,
medicated with IV Dilaudid with positive results, see EMAR. Abd assessment unchanged, abd is distended but soft. Yonas ARDON made aware of urine output after bolus administered, discussed whether or not we should irrigate the catheter just in
case, as it was difficult to obtain a bladder scan result and unsure if 0mL in the bladder is accurate. Browne irrigated with 150mL of sterile saline, and 150 mL drained immediately afterwards, no additional urine output. Lactic acid this AM
critical, higher than previous results. Yonas ARDON aware. 1000mL LR bolus ordered. SR 90s on monitor. R thigh dressing still with sanguinous drainage, no changes noted to RLE assessment.
[2024-11-04 04:54] LABS: AST (SGOT) 239 U/L (17-59); Albumin 2.8 g/dl (3.5-5.0); Alkaline Phosphatase 61 U/L (38-126); Blood Urea Nitrogen 29 mg/dl (9-20); Carbon Dioxide 17 mmol/L (22-30); Chloride 112 mmol/L (98-107); Estimated Creatinine Clearance 40 ml/min; Glucose 189 mg/dl (70-99); Potassium 3.9 mmol/L (3.5-5.1); Sodium 138 mmol/L (135-145); Total Protein 5.0 g/dl (6.3-8.2); eGFR 40.75
[2024-11-04] MEDS: LR 1000 IV ×2 (05:03→13:02)
[2024-11-04 05:11] LABS: ALT (SGPT) 61 U/L (0-50); Calcium 7.3 mg/dl (8.4-10.2)
[2024-11-04] MEDS: VANCOCIN 200 IV (06:26)
--- NOTE | 2024-11-04 06:39 | PTCARENOTE ---
Went into pt's room just before 0630 to give scheduled meds and to change pads under patient. Upon reassessment of RLE and abd, abd noted to look more distended and mottled. RLE with increased redness travelling distal to and above dressing (borders
marked with a marker). Yonas ARDON at bedside to assess abdomen, agrees that it looks more distended/mottled and is reaching out to surgeon. Pt continues with poor urine output. SR 90s on monitor, remains on 2mcg/min of Levophed.
--- NOTE | 2024-11-04 07:07 | W.PN.UPDATE ---
Update Note
Progress Note Update
0700- Patient having increased abdominal pain, abdomen is distended moderately firm, and mottled. Continues on 2mcg of levophed gtt. Minimal urinary output overnight, john was flushed, no urine visualized on bladder scan, received several IVF
boluses overnight. Dr. Monk, general surgeon, updated on findings recommendations: Ctscan abdomen/pelvis with contrast. Dr. Amador, metal tank erector agreed with Ctscan abdomen/pelvis would add Ct scan of the chest, additional labs including
amylase/lipase/alkphos, increase IVF LR 150cc/hr. Infectious disease consulted for IV antibiotic management.
--- NOTE | 2024-11-04 07:41 | CON.INTV ---
Addendum entered and electronically signed by Micheal Amador MD 11/04/24 13:55:
Patient seen and examined independently by myself earlier this a.m. and again postoperatively in the later morning. Resident note reviewed, agree with assessment and plan
Briefly, patient 78-year-old male with complex medical history including bladder cancer, history of pulmonary embolism, hypertension, chemotherapy last in December 2019 for presents with lower extremity weakness, gait dysfunction, right leg pain,
nausea. Patient denied any falls or trauma. Patient was noted to have sepsis with necrotizing fasciitis of right leg and had emergent I&D. Due to worsening abdominal findings, mottling of the skin in the lower abdomen, patient was taken back to
the OR and had extensive debridement, washout and cultures. Hospital course noted for elevated creatinine to 1.7, elevated lactate to 4.3, rhabdomyolysis. We are asked to help from critical care standpoint 11/04/2024
Past medical history, surgical history, social history, family history, review of systems as below. Of note patient lives with his
Physical exam
Patient currently intubated and sedated, left upper extremity A-line, right IJ in place
Sedated, chest exam is clear
Anterior port
Lower abdominal hernia, no mottling noted. Extensive right proximal lower extremity dressing in place
Preoperatively, patient was alert and oriented, moving all extremities
Data reviewed
CXR with mild bibasilar atelectasis
Postoperative EKG 11/03 with atrial fibrillation with RVR, bifascicular block rate 134
A/P
Presently, patient is critically ill with history of diabetes, bladder cancer, pulmonary embolism presents with emesis, weakness, gait disturbance, right leg pain found to have necrotizing fasciitis underwent debridement 11/03 and again 11/04
Patient is presently on norepinephrine and remains intubated with mechanical ventilation, volume cycle ventilation
Continue with empiric antibiotics Zosyn/vancomycin
IV fluids continue
Follow lactate
Follow creatinine, urine output. Nephrology following
Repeat chest x-ray and EKG postoperatively
Continue with enoxaparin for DVT prophylaxis
Follow blood sugars
Patient remains critically ill
Reviewed with critical care nursing, respiratory care, pharmacy
TCCT 50 min
Original Note:
Consultation
Consultation Request
Date/Time Consultation Requested: November 04, 2024, 06:30
Date/Time Consultation Performed: November 04, 2024, 07:30
Medical History
-
Chief Complaint: leg pain, weakness
History of Present Illness:
78 yo M coming from home, with PMH n/f HTN, HLD, IDDM, PE, bladder cancer s/p TURBT.
His story: he felt weakness, leg pain, chills, vomiting (nonbloody, nonbilious) and presented to the ED.
In the ED, VS n/f temperature of 103.1. CT A/P showed evidence of necrotizing fascitis in R thigh adductors and fat stranding in RLQ abdomen. Then, he was urgently taken to the OR.
This AM, extension of redness upward into abdominal/groin region and downward toward the knee was appreciated (by the surgery team) and was then taken again back to the OR. Following the procedure, he remains intubated because additional debridement
may be required.
Misc: additional details regarding pulmonary embolism: comparing 'History and Physical Scanned' document on 05/03/2024 to 'Physician Office History and Physical' document on 09/27/2023 ([address] Dr[address] Beebe's office) shows that 'PE, left lung' was
added to the [facility] problem list in the more recent document. However, reviewing home medications shows only aspirin.
Past Medical History
Past Medical History: HTN, Hypercholesterolemia and IDDM
Past Surgical History: Urological (TURBT for bladder cancer)
Social History
Tobacco: Former Smoker
Alcohol: None
Drug: None
Personal:
Living: With Family
Allergies / Home Medications
Allergies
Allergy/AdvReac Type Severity Reaction Status Date / Time
No Known Allergies Allergy Verified 11/03/24 15:32
Home Medications
�Medication �Instructions �Recorded �Confirmed �Last Taken �Type
rosuvastatin 10 mg tablet 10 mg PO HS High cholesterol 07/18/11 11/03/24 11/02/24 History
lisinopril 10 mg tablet 10 mg PO HS Blood pressure 09/16/20 11/03/24 11/02/24 History
aspirin 81 mg tablet,delayed 81 mg PO HS 11/03/24 11/03/24 11/02/24 History
release
ibuprofen 200 mg tablet (Advil) 400 mg PO TIDPRN PRN mild pain 11/03/24 11/03/24 11/03/24 History
insulin aspart U-100 100 unit/mL 0 sliding scale dose SC AC 11/03/24 11/03/24 11/03/24 History
(3 mL) subcutaneous pen (Novolog
FlexPen U-100 Insulin aspart)
insulin glargine 100 unit/mL (3 30 unit SC HS 11/03/24 11/03/24 11/02/24 History
mL) subcutaneous pen (Lantus
Solostar U-100 Insulin)
Review of Systems
-
History Source: Patient (and per HPI)
Constitutional: Fever and Chills
EENT: No Symptoms
Respiratory: No Symptoms
Cardiac: No Symptoms
Abdomen/GI: Vomiting (nonbloody, nonbilious) and Other (hernia in abdomen)
: No Symptoms
Musculoskeletal: Other (pain, weakness in right leg)
Skin: No Symptoms
Neuro: Weakness (weakness in right leg)
Vitals / Labs / Diagnostic Testing
Vital Signs
Temp Pulse Resp BP Pulse Ox
97.3 F 99 33 98/62 94
11/04/24 05:08 11/04/24 06:15 11/04/24 06:15 11/04/24 06:15 11/04/24 06:15
Lab Data
11/04/24 04:01
11/04/24 04:01
Laboratory Results
07/06/25
23:54
PT 19.3 H
INR 1.60
APTT 34.9
Labs:
WBC 10.6 from 17.1
Lactate of 4.3 (at admission, 2.9)
Ca2+ 7.3 from 9.3
AST 239, ALT 61
CK 15,000 CK-MB 38.2 (drawn post-op on 11/03/2024)
Diagnostic Testing:
CT A/P: 11/03/2024
IMPRESSION: In the visualized lungs, findings of bronchitis, new from previous exam. Increasing patchy parenchymal opacity within both lower lobes compared to examination of September 09, 2024. Parenchymal opacity could represent atelectasis and/or
pneumonia.
There is air density within the right proximal thigh adductor musculature as well as the adjacent fascial planes, with edema within the fascial planes as well. There is also air density within the marrow of the right superior pubic ramus medially.
Findings raise concern for necrotizing fasciitis.
Stranding of the fat adjacent to the ileocecal junction, with soft tissue prominence. Considerations include diverticulitis, ileocecitis, and neoplasia. The appendix is not confidently identified, and the patient has a reported history of
appendectomy in 1958.
Dense coronary artery calcifications. Please correlate with symptoms of and risk factors for coronary artery disease, with further workup as clinically appropriate.
Fatty infiltration the liver. Fatty atrophy of the pancreas.
Plaque-like soft tissue density off the right anterior and inferior margin of the bladder, superior to the right superior pubic ramus, which appears stable from previous exam of September 09, 2024. This may be related to previous treatment for bladder
cancer, and continued follow-up is advised.
CXR: 11/03/2024
IMPRESSION:
Increased reticulonodular markings within both lower lungs. Main differential considerations of pneumonia and/or atelectasis. There is also suggestion of bilateral lower lung bronchitis.
Physical Exam
-
HEENT: Normocephalic and Anicteric
Cardiovascular: Regular Rhythm, Murmur and Other (no murmurs on my exam)
Respiratory: Other (tachypneic)
GI: Distended, Non Tender and Other (bulge c/w hernia)
Neurology: Awake, Alert and Other (grossly intact)
Skin: Warm and Other (redness along medial right thigh that is extending upward to abdomen and downward to knee that is tender to palpation, drain/open wound after fasciotomy/debridement on 11/03/2024)
General: Comfortable
Assessment
-
In summary, this is a 78 yo M coming from home, with PMH n/f HTN, HLD, IDDM, PE, bladder cancer s/p TURBT. He initially p/w weakness, leg pain, chills and was found to have necrotizing fascitis s/p fasciotomy and debridement x2 (11/03/2024, and
11/04/2024) due to continued extension of the infection. Per surgery, he remains intubated in case additional debridement procedures are needed.
His initial presentation is c/w sepsis from necrotizing fascitis because initially tachycardia to 130s with elevated WBC and suspected source of infection meeting SIRS criteria. Initial lactate was elevated to 2.9. Regarding etiology/source, given
that he is IDDM, he is susceptible to infections, and it is possible that he may have experienced some trauma/skin wound that he was not aware of, that then led to entry of bacteria.
Neuro
- Intubated
CV
- norepinphrine 4mg
Respiratory
- Intubated, ventilator settings are
Assist/Control
- TV 500 mL
- RR 16
- FiO2 100%
- PEEP 5mmHg
With goal to wean FiO2 to 40%, maintaining saturation > 90%
GI:
- elevated AST/ALT, CK, CK-MB due to rhabdomyolysis in setting of necrotizing fascitis and/or therapeutic fasciotomy/debridement procedures
- f/u LFTs
Renal:
- Lactate 4.3
- Cr 1.7 from 1.0, JALEN can be attributed to necrotizing fascitis, rhabdomyolysis, and/or fasciotomy.
- trend lactate
- fluid resuscitation with 1 L of LR
ID:
- Continue Vancomycin, zosyn, and clindamycin
Endo:
- insulin with aspart and glargine for IDDM
Heme:
- lovenox for dvt ppx
- surgery recc no therapeutic AC at this time
Plan summary:
- administer LR
- remain intubated per surgery
- Continue Zosyn, clindamycin, vancomycin
- Trend lactate, LFTs, Cr
Recommendations are not final until attending note/attestation
Data Reviewed
-
Radiology: Report reviewed by me
CT Scan: Report reviewed by me
[2024-11-04 08:13] LABS: Alkaline Phosphatase 57 U/L (38-126); Amylase 39 U/L (30-110); Lipase < 10 U/L (23-300)
[2024-11-04 08:50] LABS: Amylase 41 U/L (30-110)
--- NOTE | 2024-11-04 09:26 | PTCARENOTE ---
Pt received in bed @ 0700. Oriented to person, place, and time, but forgetful. PAMUNKEY. Difficulty moving right leg s/p I&D. Denies pain but grimaces when pressure applied to RLE. Fine crackles auscultated at bases. SaO2 93-97% on 6L NC. Tachypneic, RR
in 30s. Sinus rhythm/Sinus tach on telemtry monitor. HR observed 90s - 100s. +2 RLE edema. Cap refill > 2 seconds on all extremities. Pedal pulses present with Doppler. Levophed gtt infusing @ 2 mcg/min with goal MAP > 65. SBP 90s - 100s. Abdomen
distended, mottled appearence. Bowel sounds present. Apparent hernia in lower abdomen. Browne catheter with small urine output; 2-5ml/hr observed. Right thigh with incision draining serosanguineous fluid. [place] drain in place. Wrapped in CJ.
Uncovered and examined by Dr. Monk at bedside. Erythema extending from site. Grew overnight; boundary marked by night worker nurse this morning. LR @ 125ml/hr. Levophed infusing through right SubQ port. Report called to Rena in OR and pt brought to
OR.
--- NOTE | 2024-11-04 09:36 | PHA.VAN.FU ---
Vancomycin Assessment / Plan
- Assessment
Renal Function: SCR Increasing
WBC's are: Trending Down
In the past 24 hrs, patient has been: Febrile (Tmax 103.1 F 11/03 15:38 - oral)
Concomitant Antimicrobials: piperacillin/tazobactam
- Dosing Plan
Adjust Regimen to: dosing by level due to increased SCR
Dosing Comments: received 2g load 11/03 and 1g this AM - hold off on further dosing today
- Monitoring Plan
Random Level: 11/05 06
- Follow Up
Pharmacy will continue to follow.
Vancomycin Follow UP
- -
Patient Age: 78
Patient Sex: Male
Vancomycin Day #: 2
Indication: Bacteremia
Requesting Provider: Dr. Juarez
Pertinent Antimicrobial Allergies:
NKDA
Height / Weight:
Height 6 ft 1 in
Actual Weight 98.6 kg
Pertinent Past Medical History: DM, bladder cancer (completed chemo in Fall)
- Vital Signs / Lab Results
Temp Pulse Resp BP Pulse Ox
97.5 F 99 25 102/64 97
11/04/24 07:40 11/04/24 08:45 11/04/24 08:45 11/04/24 08:45 11/04/24 08:45
Lab Results - Hematology
11/03/24 11/04/24
15:44 04:01
WBC 17.1 H 10.6
Lab Results - Chemistry
11/03/24 11/04/24
15:44 04:01
BUN 23 H 29 H
Creatinine 1.0 1.7 H
Estimated Creat Clear 67 40
Albumin Cancelled 2.8 L
11/03/24 11/03/24 11/03/24
15:44 19:56 23:54
Lactic Acid 2.9 H 2.3 H Cancelled
11/03/24 11/04/24 11/04/24
23:54 04:01 06:00
Lactic Acid 2.9 H 4.3 H* Cancelled
Lab Results - Urine
11/03/24
15:44
Urine Nitrite (Reflex) Negative
Leukocyte Esterase Rfl 1+ A
Ur Squamous Epith Cells 3-5
Microbiology Results
11/03/24 23:54 Nasal Screen MRSA (PCR) - Final
Nose MRSA not detected - performed by PCR methodology.
[2024-11-04 10:19] LABS: Glycohemoglobin (HgbA1c) 7.3 % (4.0-5.6)
--- NOTE | 2024-11-04 10:36 | W.IMMPOSTOP ---
Surgical Immed Post Op Note
-
Primary Surgeon: Miko Monk MD
Assisting Surgeon: None
Pre-op Diagnosis: Necrotizing fasciitis
Post-op Diagnosis: Same
Procedure Performed: Excision and debridement of the right lower extremity
Anesthesia Type: General
Specimen / Cultures: Proximal right adductor fascia for tissue culture
Estimated Blood Loss: 23 cc
Complications: None
Operative Findings: After placing the patient in a supine frog-leg position the right lower extremity was prepped and draped with Betadine from the lower right lower quadrant down to the knee of the right lower extremity and secured in place. The
previous [place] was removed. There were multiple areas of erythema extending distally along the medial/abductor compartments as well as posteriorly towards the buttocks, anteriorly towards the pubic area and superior laterally towards the proximal
anterior area/inguinal canal using sharp dissection the previously incision was extended towards these areas of erythema exposing the entire adductor compartment as well as part of the anterior compartment. There is patchy areas of muscle necrosis
and christians[place] appearing fascial tissues which were excised where possible. The dissection extended superiorly anteriorly to the pubic bone and posteriorly into the gluteal fat where we encountered healthy nonaffected bleeding tissue however there was
some of the proximal gracilis that appeared somewhat dusky. The final dimensions of the wound were 35 cm long by 25 cm wide and extended down 8 cm to the femoral bone at the deepest point. The wound was then packed with 4 Dakin's soaked Kerlix
dressings in a wet-to-dry fashion, wrapped with ABDs and secured in place with further kerlix dressings. The patient was kept intubated and sedated but overall tolerated the procedure well and was returned to the ICU.
POST OP PLAN:
Imaging: None
Labs: Routine AM, trend lactate
Diet: N.p.o.
Analgesia: Pain control per ICU
Neuro/vascular checks: q4h
AC/AP: Hold Therapeutic AC, Ok for DVT PPx
Activity: Ad Meghan
Wound/Incisions/Drains: Routine, continue packing right lower extremity medial wound wet-to-dry with Dakin's quarter strength.
Abx: Continue Zosyn and clindamycin, reasonable to continue vancomycin for empiric MRSA coverage as well.
Dispo: ICU, keep intubated, may need to return to the OR tomorrow for further debridement. Voicemail left for on both cell phone and home numbers.
[2024-11-04 10:44] LABS: Lipase < 10.0 U/L (23-300)
[2024-11-04] MEDS: SUBLIMAZE 100 MCG IV ×7 (11:48→22:46)
--- NOTE | 2024-11-04 11:51 | W.CON.NEPH ---
Consultation
-
Date/Time Consultation Requested: 11/04/24 0620
Date/Time Consultation Performed: 11/04/24 1145
Requesting Provider: Woo Leger
Performing Provider: Bonnie Malone
Reason for Consultation: JALEN
Medical History
-
Chief Complaint: n/v, AMS
History of Present Illness:
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
intravesicular and systemic chemotherapy last in Dec 2023 presented to ER on 11/03 evening with n/v started 3days ago. Family though he might got Flu since was having fever and chills. He had no pain but felt very weak and unable to walk yesterday
with being disoriented too. NO reported h/o trauma to the RLE. No known wounds of the RLE. 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 He noted with severe sepsis from necrotizing fascitis of right leg and had I&D
emergently on 11/03. He remains septic and worsening L acidosis. He was taken to OR again today for E&D. He remains intubated for potential OR again tomorrow. Today his cr increased from 1 to 1.7 and decreased UOP hence nephrology consulted. He was
briefly on pressors for hypotension now off. He received 4lit of NS and 1lit of LR bolus since admit and currently on LR at 150cc/hr. His ck is over 15k.
Since he remains intubated history is limited and most of the history is from chart, nursing and over phone.
Past Medical History
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
Past Surgical History: Appendectomy and Urological (RAL excision of urachus and partial cystectomy with lymphadenectomy in 2020, TURBT)
Social History
Tobacco: Former Smoker
Alcohol: None
Drug: None
Personal:
Living: With Family
Family History
Family History: Unable to Obtain
Allergies / Home Medications
Allergy/AdvReac Type Severity Reaction Status Date / Time
No Known Allergies Allergy Verified 11/03/24 15:32
�Medication �Instructions �Recorded �Confirmed �Type
rosuvastatin 10 mg tablet 10 mg PO HS High cholesterol 07/18/11 11/03/24 History
lisinopril 10 mg tablet 10 mg PO HS Blood pressure 09/16/20 11/03/24 History
aspirin 81 mg tablet,delayed 81 mg PO HS 11/03/24 11/03/24 History
release
ibuprofen 200 mg tablet (Advil) 400 mg PO TIDPRN PRN mild pain 11/03/24 11/03/24 History
insulin aspart U-100 100 unit/mL 0 sliding scale dose SC AC 11/03/24 11/03/24 History
(3 mL) subcutaneous pen (Novolog
FlexPen U-100 Insulin aspart)
insulin glargine 100 unit/mL (3 30 unit SC HS 11/03/24 11/03/24 History
mL) subcutaneous pen (Lantus
Solostar U-100 Insulin)
Review of Systems
-
Unable to obtain full review of systems at this time due to: Patient Intubation
Physical Exam
Vital Signs
Vital Signs
Temp Pulse Resp BP Pulse Ox
97.5 F 99 25 102/64 100
11/04/24 07:40 11/04/24 08:45 11/04/24 08:45 11/04/24 08:45 11/04/24 11:30
Lab Results
WBC 10.6 10^3/uL (4.8-10.8) 11/04/24 04:01
RBC 4.04 10^6/uL (4.70-6.10) L 11/04/24 04:01
Hgb 12.5 g/dL (13.0-18.0) L 11/04/24 04:01
Hct 38.3 % (39.0-52.0) L 11/04/24 04:01
Plt Count 137 10^3/uL (130-400) 11/04/24 04:01
Sodium 138 mmol/L (135-145) 11/04/24 04:01
Potassium 3.9 mmol/L (3.5-5.1) 11/04/24 04:01
Chloride 112 mmol/L (98-107) H 11/04/24 04:01
Carbon Dioxide 17 mmol/L (22-30) L 11/04/24 04:01
BUN 29 mg/dl (9-20) H 11/04/24 04:01
Creatinine 1.7 mg/dL (0.7-1.3) H 11/04/24 04:01
eGFR 40.75 11/04/24 04:01
Glucose 189 mg/dl (70-99) H 11/04/24 04:01
Calcium 7.3 mg/dl (8.4-10.2) L D 11/04/24 04:01
Phosphorus 3.0 mg/dl (2.5-4.5) 11/03/24 23:54
Albumin 2.8 g/dl (3.5-5.0) L 11/04/24 04:01
Physical Exam
General: No Distress, Nontoxic and Other (intubated, sedated)
HEENT: Facial Symmetry and No JVD
Respiratory: Clear, Normal Excursion and Nonlabored Respirations
Cardiac: S1/S2 and Regular Rate/Rhythm
Breast: Deferred by me
Abdomen: Soft, Nontender and Other (mild distension)
Genito-urinary: Other (cloudy urine -<50cc in john bag)
Musculoskeletal: No Cyanosis, No Edema and Other (dressing intact right thigh and leg)
Skin: No Rash
Neuro: Other (unable to assess)
Psych: Other (unbale to assess)
Data Reviewed
-
Radiology: Report Reviewed by me and Discussed with Family
Labs: Labs Reviewed by me, Discussed with Nurse and Discussed with Family
Assessment/Plan
-
IMP:
Severe sepsis
Necrotizing fascitis of right leg s/p debridement
Rhabdomyolysis
JALEN
L acidosis
New onset AF
elevated LFTs
VDRF
HX IDDM
Benign HTN
HLD
HX PE
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
PORT at Rt Chest
h/o K stone
Plan:
A/w AMS, nausea and noted severe sepsis from necrotizing fascitis of right leg
s/p I&D 11/03 and excision debridement on 11/04
UA seem UTI sample, await cx
CT shows no hydro, 2mm nephrolith left kidney, right kidney cysts
JALEN seem prerenal, oligoanuric
cont aggressive IVF and prn pressor to maintain MAP>65
If met acidosis worsens change to bicarb Gtt for rhabdo
recheck labs and CK
high risk of HD if cont to have worsening renal function
no emergent need today , family not opposing HD if needed
noted plan OR again if needed
adjust meds renally
corrected abraham is normal
d/w nursing
d/w on phone in detail
CC time spent 45min
[2024-11-04 12:36] LABS: Glucose - Point of Care 187 mg/dl (70-99)
--- NOTE | 2024-11-04 12:45 | PTCARENOTE ---
Pt returned from OR. Right thigh wrapped in lakesha. RASS 1 and CPOT 5. PRN Fentanyl 100 mcg IV administered. New Right TL IJ and Left Radial arterial line. Hands and feet cyanotic. Abdomen mottled. Levophed gtt infusing @ 8 mcg/min. Left radial
arterial line transduced, zeroed, and flushed. HR 120s. Arterial BP 210/100; cuff pressure within 20 mmhg. Levophed shut off. Pt intubated. ETT #8 @ 24cm to center lip. AC (16/500/100%/5+). Browne continues with small output.
[2024-11-04] MEDS: NOVOLOG FLEXPEN-LOW RESISTANCE 1 UNITS SC (12:52)
[2024-11-04] MEDS: SUBLIMAZE 100 IV ×2 (13:47→22:18)
--- NOTE | 2024-11-04 14:01 | CON.ID ---
Consultation
-
Date/Time Consultation Requested: November 04, 2024 0620
Date/Time Consultation Performed: November 04, 2024 1400
Requesting Provider: Dr. [place] Vidal
Performing Provider: Dr. Anita Olson
Reason for Consultation: Right lower extremity necrotizing fasciitis
Chief Complaint / Past History
Chief Complaint
Change in mental status
History of Present Illness
History obtained from review of systems as patient is currently intubated. He is a 78-year-old male with diabetes mellitus, neuropathy, history of urachal adenocarcinoma invading the bladder status post resection, adjuvant chemotherapy completed
January 2024 who presented to the ER on November 03 due to 2-day history weakness, lethargy, right thigh discomfort. In ED patient was febrile 103.1, white blood cell 17. CT of the abdomen and pelvis showed air density within the right proximal thigh
adductor muscle as well as the fascial planes concerning for necrotizing fasciitis. Patient was taken to the OR emergently status post I&D, fasciotomy. Today he was again taken to the OR for further I&D. Patient noted to be hypotensive in the ER
requiring pressors. Admission blood cultures are positive for Gram variable rods.
Past History
Additional Past Medical History:
Diabetes mellitus
Neuropathy
Hypertension
Dyslipidemia
PE
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
Appendectomy
Allergy History:
No Known Allergies Allergy (Verified 11/03/24 15:32)
Medications Reviewed: Yes
Current Antibiotics:
Vancomycin day 2
Zosyn day 2
Social History
Tobacco: Former Smoker
Alcohol: None
Drug: None
Personal:
Review of Systems
Review of Systems
Unable to obtain as patient currently intubated
Vital Signs
Temp Pulse Resp BP Pulse Ox
97.5 F 99 25 102/64 99
11/04/24 07:40 11/04/24 08:45 11/04/24 08:45 11/04/24 08:45 11/04/24 12:00
Selected Entries
11/03/24
15:38
Temp 103.1 F H
Physical Exam
Physical Exam
Constitutional: Acutely Ill
Eyes: No Conjunctival Hemorrhage and Sclera Anicteric
Cardiovascular: S1/S2 and Other (Tachycardic)
Pulmonary: Clear
Gastrointestinal: Soft, Non Tender and Non Distended
Extremities: Edema (Right lower extremity) and Cyanosis (Bilateral hands and feet)
Skin: Other (Generalized mottling abdomen and lower extremities)
Wound: Other (Right thigh dressing with dark yellow strikethrough)
Lines: Port (Right chest wall no erythema)
Lab / Diagnostic Study Results
11/04/24 04:01
Abs Immat Gran (auto) 0.9 10^3/uL (0-0.05) H 11/03/24 15:44
Absolute Neuts (auto) 14.9 10^3/uL (1.4-6.5) H 11/03/24 15:44
Absolute Lymphs (auto) 0.4 10^3/uL (1.2-3.4) L 11/03/24 15:44
Absolute Monos (auto) 0.8 10^3/uL (0.1-0.6) H 11/03/24 15:44
Absolute Basos (auto) 0.1 10^3/uL (0-0.2) 11/03/24 15:44
Immature Gran % 5.1 % (0-0.5) H 11/03/24 15:44
Neutrophils % 87.4 % (42.2-75.2) H 11/03/24 15:44
Lymphocytes % 2.4 % (20.5-51.1) L 11/03/24 15:44
Monocytes % 4.6 % (1.7-9.3) 11/03/24 15:44
Eosinophils % 0.0 % (0-6) 11/03/24 15:44
Basophils % 0.5 % (0-2) 11/03/24 15:44
PT 19.3 Sec (11.4-14.6) H 11/03/24 23:54
INR 1.60 11/03/24 23:54
Lactic Acid 3.2 mmol/L (0.7-2.0) H 11/04/24 12:24
Ur Squamous Epith Cells 3-5 /LPF (Few) 11/03/24 15:44
Microbiology Results
Micro:
11/03/24 21:57 Wound Culture - Pending
Leg - Right Gram Stain - Preliminary
11/03/24 15:44 Blood Culture - Preliminary
Blood/Venous Positive culture in progress
Gram Stain - Preliminary
11/03/24 15:44 Blood Culture - Preliminary
Blood/Venous Positive culture in progress
Gram Stain - Preliminary
11/04/24 10:26 Tissue Culture - Pending
Leg - Right Gram Stain - Pending
11/03/24 23:54 Nasal Screen MRSA (PCR) - Final
Nose MRSA not detected - performed by PCR methodology.
11/03/24 21:57 Anaerobic Culture - Pending
Leg - Right
11/03/24 15:44 Urine Culture - Pending
Urine
Assessment / Plan
#Right thigh acute necrotizing fasciitis
# Anaerobic bacteremia x 2 sets due to necrotizing fasciitis
#Severe sepsis due to above
#Fever and leukocytosis
#JALEN
- 7/, 7 status post OR I&D and fasciotomy
- Appreciate surgeons. Tissue cultures are pending
- Repeat blood cultures in a.m.
- Add clindamycin 900 mg IV every 8 hours as toxin inhibitor
- Continue vancomycin and Zosyn for now
- Monitor renal function closely while on vancomycin and Zosyn
- Trend temperature, white count, vitals
- Prognosis guarded
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
Diabetes mellitus
Neuropathy
Hypertension
Dyslipidemia
PE
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
Appendectomy
[2024-11-04 14:02] LABS: Blood Urea Nitrogen 34 mg/dl (9-20); Calcium 6.8 mg/dl (8.4-10.2); Carbon Dioxide 18 mmol/L (22-30); Chloride 108 mmol/L (98-107); Estimated Creatinine Clearance 34 ml/min; Glucose 212 mg/dl (70-99); Potassium 5.0 mmol/L (3.5-5.1); Sodium 136 mmol/L (135-145); eGFR 33.53
--- NOTE | 2024-11-04 14:07 | W.PN.HOSP.TC ---
Today's Communication/Plan
-
IVF, change to NS
Insulin gtt
DVT & GI prophylaxis
IV Abx
Calcium infusion gtt
Re-culture of blood
Advance ET tube ( TT to service)
ABG & CXR & Blood work in AM
BMP at 8 pm
Assessment / Plan
Assessment / Plan
78 male presented with sepsis
#Right thigh acute necrotizing fasciitis
# Anaerobic bacteremia x 2 sets due to necrotizing fasciitis
#Severe sepsis with lactic acidosis
# Septic shock
c/w broad spectrum IV ABx
NO fevers today, WBC is coming down
Remains on low dose Levophed as needed with parameters
Went to OR for further debridement 11/04
Appreciate surgery, ID and ICU doctors help
#Gram negative bacteremia
will c/w IV ABx
Repeat blood culture 11/04
# Acute ventilatory dependent respiratory failure post op
AC 500/ RR 12/ FiO2 at 100% with P 5
Remained intubated post surgery today also
Order ABG for AM with chest x ray
CXR was reviewed. Will need to advance the ET tube
Appreciate pulmonary/ICU help
#JALEN with low urine output with metabolic acidosis
Likely ATN due to sepsis
He was taking Advil and on lisinopril prior to presentation
stop lisinopril due to hypotension/ JALEN
c/w IVF, Browne catheter
DC ringer lactate gtt and replace with NS
Maintain good volume and blood pressure status
JALEN: high possibility to continue to deteriorate , remains critical issue
Appreciate nephrology help
# Elevated CPK due to non traumatic rhabdomyolysis from muscle injury/ infection
# Hypocalcemia, replace
Recheck BMP in few hours.
# Sinus tachycardia, reactive
# IDDM
Change to insulin IV protocol
stop insulin sliding scale with Lantus while critical
# DVT prophylxis, change to SQ heparin due to poor renal function , Add GI prophyalxis
Total time spent to see the patient, examine the patient, review data and lab result, discuss treatment plan with consultants, nursing staff around 55 minutes
Anticipated Discharge: > 48 hours
Subjective/Interval History
-
Date of Service: November 04, 2024
intubated and sedated
seen after OR procedure
Objective Data
-
Labs:
Laboratory Results
11/04/24 11/04/24 11/04/24
04:01 07:51 12:24
WBC 10.6
Hgb 12.5 L
Hct 38.3 L
Plt Count 137
Sodium 138 136
Potassium 3.9 5.0 D
Chloride 112 H 108 H
Carbon Dioxide 17 L 18 L
BUN 29 H 34 H
Creatinine 1.7 H 2.0 H
Glucose 189 H 212 H
Calcium 7.3 L D 6.8 L*
Total Bilirubin 2.0 H
AST 239 H
ALT 61 H
Alkaline Phosphatase 61 57
Vital Signs:
Vital Signs
Temp Pulse Resp BP Pulse Ox
97.5 F 99 25 102/64 99
11/04/24 07:40 11/04/24 08:45 11/04/24 08:45 11/04/24 08:45 11/04/24 12:00
I&O
11/03/24 11/04/24 11/05/24
06:59 06:59 06:59
Intake Total 5052.5 / 5210.0 652.5 / 652.5
Output Total 248 / 253 35 / 35
Balance 4804.5 / 4957.0 617.5 / 617.5
Physical Exam
-
General: Other (Intubated and sedated . Port in anterior chest wall, right jugular central line )
HEENT: Atraumatic and Other (ET tube )
Respiratory: Decreased Breath Sounds
Cardiac: S1/S2 and Tachycardic
GI: Soft and Nontender
Genito-urinary: Browne; Negative Bloody Urine
Musculoskeletal: No Cyanosis and No Edema
Neuro: Other (Sedated )
Psych: Other (sedated )
[2024-11-04] MEDS: CALCIUM GLUCONATE 100 IV (15:17)
[2024-11-04 16:00] LABS: Glucose - Point of Care 95 mg/dl (70-99)
[2024-11-04] MEDS: HEPARIN 5000 UNITS SC (16:39)
[2024-11-04] MEDS: PROTONIX IV 40 MG IV (16:41)
[2024-11-04 17:02] LABS: Glucose - Point of Care 173 mg/dl (70-99)
[2024-11-04] MEDS: PITRESSIN 100 IV (18:01)
--- NOTE | 2024-11-04 18:13 | PTCARENOTE ---
Pt reassessed. Cyanotic feet resolved, remain cool. Cyanotic hands now just middle and 1st fingers. Pt with periods of restlessness and agitation. New order for soft limb restraints and 4 rails. PRN Fentanyl 100 mcg x3 given before initiation of
Fentanyl gtt @ 100 mcg/hr per order. RASS -2 to +1. Pt able to follow commands. Squeezes hands. Nodding head 'no' to pain. Levophed gtt increased to 16 mcg/min to maintain MAP > 65. Vasopressin gtt started @ 0.03 units/hr. Browne remains with minimal
output.
[2024-11-04] MEDS: CLEOCIN 50 IV (18:19)
[2024-11-04 18:21] LABS: Glucose - Point of Care 139 mg/dl (70-99)
[2024-11-04] MEDS: LR 500 IV (18:22)
--- NOTE | 2024-11-04 18:37 | PTCARENOTE ---
Insulin gtt not initiated at this time. Accuchecks have not met ordered guidelines for initiation.
[2024-11-04] MEDS: ASPIR LOW (ENTERIC COATED) PO (19:10)
[2024-11-04 19:20] LABS: Glucose - Point of Care 142 mg/dl (70-99)
[2024-11-04 20:13] LABS: Hematocrit 38.3 % (39.0-52.0); Hemoglobin 12.5 g/dL (13.0-18.0); Mean Corp Hgb Conc. 32.6 g/dL (33.0-37.0); Mean Corpuscular Volume 95.3 fL (80.0-94.0); Platelet Count 186 10^3/uL (130-400); Red Cell Dist. Width 14.8 % (11.5-14.5)
[2024-11-04 20:21] LABS: APTT 40.6 Sec (23.4-35.0)
[2024-11-04 20:24] LABS: Blood Urea Nitrogen 40 mg/dl (9-20); Calcium 7.0 mg/dl (8.4-10.2); Carbon Dioxide 15 mmol/L (22-30); Chloride 108 mmol/L (98-107); Estimated Creatinine Clearance 31 ml/min; Glucose 229 mg/dl (70-99); Potassium 5.5 mmol/L (3.5-5.1); Sodium 132 mmol/L (135-145); eGFR 29.91
[2024-11-04] MEDS: HEPARIN 25000 UNITS/250 ML IV (20:34)
[2024-11-04] MEDS: LASIX 40 MG IV (20:46)
[2024-11-04] MEDS: SODIUM BICARBONATE 50 MEQ IV (20:46)
--- NOTE | 2024-11-04 21:00 | W.PN.UPDATE ---
Update Note
Progress Note Update
11/04/2024
2029- Reviewed BMP results with Dr. Zabala, K5.5 and bicarb 15. Recommendations received: bicarb gtt, insert nasogastric tube and give lokelma, insulin gtt for hyperglycemia (also also hyperkalemia). Plan possible HD vs CRRT and HD catheter to be
placed tomorrow will consult IR.
[2024-11-04] MEDS: LEVOPHED 258 MG IV (21:07)
[2024-11-04] MEDS: SODIUM BICARBONATE 1150 MEQ IV (21:07)
--- NOTE | 2024-11-04 21:40 | PTCARENOTE ---
Unable to verify vitals that were captured with a timestamp before 184
[2024-11-04 22:09] LABS: Glucose - Point of Care 226 mg/dl (70-99)
[2024-11-04] MEDS: NOVOLIN R 4 UNITS IV (22:17)
[2024-11-04] MEDS: NOVOLIN R INSULIN INFUSION 100 IV (22:18)
[2024-11-04 23:37] LABS: Glucose - Point of Care 205 mg/dl (70-99)
[2024-11-04] MEDS: LOKELMA 10 GRAM TUBE (23:38)
[2024-11-05] VITALS: BP 120/65
[2024-11-05 00:29] LABS: Glucose - Point of Care 198 mg/dl (70-99)
[2024-11-05] MEDS: SUBLIMAZE 100 MCG IV ×3 (00:36→19:05)
[2024-11-05 00:57] LABS: Blood Urea Nitrogen 43 mg/dl (9-20); Calcium 6.6 mg/dl (8.4-10.2); Carbon Dioxide 19 mmol/L (22-30); Chloride 108 mmol/L (98-107); Estimated Creatinine Clearance 29 ml/min; Glucose 198 mg/dl (70-99); Potassium 5.0 mmol/L (3.5-5.1); Sodium 136 mmol/L (135-145); eGFR 26.94
[2024-11-05] MEDS: PRECEDEX 100 IV (01:33)
[2024-11-05] MEDS: CLEOCIN 50 IV ×3 (01:34→17:29)
[2024-11-05 01:44] LABS: Glucose - Point of Care 173 mg/dl (70-99)
[2024-11-05] MEDS: CALCIUM GLUCONATE 100 IV ×2 (02:09→05:47)
[2024-11-05 02:41] LABS: Glucose - Point of Care 175 mg/dl (70-99)
[2024-11-05 03:07] LABS: APTT 131.3 Sec (23.4-35.0)
[2024-11-05] MEDS: PITRESSIN 100 IV ×2 (03:15→13:54)
[2024-11-05] MEDS: LEVOPHED 258 MG IV ×4 (03:15→18:23)
--- NOTE | 2024-11-05 03:22 | PTCARENOTE ---
Late entry: Assumed care of pt at 1900. Received pt intubated, #8.0 ETT 24cm at lip, AC 16/500/60/5. FiO2 turned down to 40% before 1999. Pt on Fentanyl drip at 100mcg/hr, Levophed at 16mcg/min, Vaso at 0.03 units/min, and IVF at start of shift. See
med titration flowsheets on worklist for med titration details throughout the shift. Pt awakens easily, startles easily as well and his BP will shoot up to the 170s-180s (A Line reading). Pt denies pain, is able to be calmed down, can follow
commands and shake/nod head appropriately. RLE wrapped in Kerlix and dressing noted to have large amount of serosanguinous drainage which was leaking onto the pad underneath. Right thigh warm touch but below the knee is cooler in temperature, toes
dusky with > 2sec cap refill but this was also the case for the left foot and both hands as well. Positive doppler DP and PT signals to RLE. SR 90s on monitor with BBB and 1st deg AVB. See nursing shift assessment flowsheet for full physical
assessment details. Pt given several fentanyl boluses throughout the shift for pain/agitation (see EMAR).
~2039: Heparin drip started based on echocardiogram results ('large echodensity in RV apex...suspicious for thrombus vs mass')
~2541-6809: Lasix and bicarb push given to treat K+ 5.5 resulted on 1999 BMP. Lokelma also ordered but needed to establish enteral access. IVF changed from NS to D5W with bicarb. Levophed changed to double concentration.
~2129: NGT inserted, awaiting XR for placement confirmation.
~2214: Pt started on critical care glycemic protocol.
~2254: NGT found to be coiled on XR, possibly in cervical esophagus per XR report. Attempted NGT again but unsuccessful, OGT placed instead (18Fr salem sump), placement verified by XR. Lokelma given (see EMAR).
0000 assessment unchanged from previous assessment. Neurovascular assessment to RLE also unchanged. Remains on same vent settings. Levophed has been titrated up. Urine output throughout the shift < 7 mL/hr.
~0100 CHG cloth bath done, pt has been cool and clammy throughout the shift, back and neck washed with soap and water and a washcloth. All linens changed. Sacral and heel foams applied for protection--no skin breakdown noted. After being turned and
cleaned pt had a difficult time calming down, was dyssynchronous with vent, desatting, BP going up to 200s on A Line. Discussed with ICU DATA CAPTURE CLERK Yonas Daniels and Precedex ordered for additional sedation (see EMAR).
~0200: Calcium gluconate administered (based on Ca++ result from midnight BMP).
[2024-11-05 04:17] LABS: Glucose - Point of Care 154 mg/dl (70-99)
[2024-11-05 04:30] LABS: B.E. -7.0 mmol/L; HCO3 19.7 mmol/L (21-28); O2 Saturation % 100.0 % (94-98); PCO2 43 mmHg (35-48); PO2 146 mmHg (83-108)
[2024-11-05 04:31] LABS: Hematocrit 36.0 % (39.0-52.0); Hemoglobin 12.0 g/dL (13.0-18.0); Mean Corp Hgb Conc. 33.3 g/dL (33.0-37.0); Mean Corpuscular Volume 93.5 fL (80.0-94.0); Platelet Count 187 10^3/uL (130-400); Red Cell Dist. Width 15.0 % (11.5-14.5)
[2024-11-05 04:57] LABS: ALT (SGPT) 118 U/L (0-50); AST (SGOT) 263 U/L (17-59); Albumin 2.5 g/dl (3.5-5.0); Alkaline Phosphatase 57 U/L (38-126); Blood Urea Nitrogen 47 mg/dl (9-20); Calcium 7.1 mg/dl (8.4-10.2); Carbon Dioxide 19 mmol/L (22-30); Chloride 107 mmol/L (98-107); Estimated Creatinine Clearance 26 ml/min; Glucose 143 mg/dl (70-99); Magnesium 2.0 mg/dl (1.6-2.3); Potassium 4.9 mmol/L (3.5-5.1); Sodium 135 mmol/L (135-145); Total Protein 4.7 g/dl (6.3-8.2); eGFR 24.48
[2024-11-05 05:14] LABS: Glucose - Point of Care 134 mg/dl (70-99)
[2024-11-05 05:37] LABS: CKMB 31.0 ng/ml (0.0-3.4)
[2024-11-05 05:38] VITALS: BMI 31.2
[2024-11-05] MEDS: ZOSYN 50 IV ×3 (05:48→18:15)
--- NOTE | 2024-11-05 07:19 | PTCARENOTE ---
0400 assessment unchanged. Able to find a positive doppler signal in left anterior tibial, still absent left PT. Neurovascular assessment for RLE unchanged. Top of dressing reinforced with abd pad and silk tape due to dressing sliding down slightly
and exposing part of the incision. Pt remains on Levophed, Vasopressin, Fentanyl, Precedex, Insulin, Heparin, and Bicarb drips, see med titration flowsheets for details on titrations. R IJ dressing changed. Pt has been calmer on Precedex, has not
required any bolus doses of Fentanyl since starting Precedex infusion.
[2024-11-05] MEDS: FLEXBUMIN 100 IV (07:25)
[2024-11-05] MEDS: PROTONIX IV 40 MG IV (07:30)
[2024-11-05 07:33] LABS: Glucose - Point of Care 114 mg/dl (70-99)
--- NOTE | 2024-11-05 07:48 | W.PN.INTV ---
Addendum entered and electronically signed by Micheal Amador MD 11/05/24 14:07:
Patient seen and examined independently by myself. Resident note reviewed below, agree with assessment and plan. Patient remains critically ill. Remains on vasopressin, norepinephrine. Metabolic acidemia noted. Echocardiogram yesterday p.m.
with EF 30%, dilated RV, suggestion of RV thrombus. Started on heparin without bolus yesterday p.m. Patient remains sedated
Positive fluid status noted, minimal urine output
Chest exam with decreased breath sounds at the base, patient with spontaneous movement of all extremities
Regular rate, regular rhythm, no murmurs. Abdominal exam distended with mild mottling no worsening. Right lower extremity proximal dressing in place
Data reviewed
CK level decreased to 9111
Chest x-ray with NG tube in appropriate position, ET tube appropriate
EKG right bundle branch block
PTT 131
Creatinine rising to 2.6
A/P
Moving forward
Continue with supportive care. Concerned about cardiomyopathy, RV dilatation in the setting of sepsis, renal failure
This a.m., patient 40% with chest x-ray unremarkable but at risk for worsening oxygenation given the above
Plan for dialysis later today as tolerates, possible CRRT
Patient remains on clindamycin/Zosyn therapy
Heparin therapy continues. Do not think we can safely hold heparin therapy for OR at this time given RV thrombus per echo 11/04
Reviewed with surgery
May need to reassess on a daily basis
Follow hemoglobin
Continue with sedation, fentanyl drip, Precedex
Patient also remains on insulin drip, follow blood sugars
Continue volume cycle ventilation
Airway pressure is adequate
Reviewed with critical care nursing, respiratory care, pharmacy
Reviewed with primary service, nephrology, cardiology
TCCT 45 min
Original Note:
Today's Communication / Plan
Recommendations
Plan summary:
- Now DNR
- Monitor VS and adjust pressors for support as needed
- Plan for dialysis or CRRT due to worsening volume status
- volume status is in setting of worsening renal function, volume overload, systolic dysfunction, sepsis
- Abx: clindamycin and zosyn, f/u cultures
Recommendations are not final until attending note/attestation
Assessment
-
In summary, this is a 78 yo M coming from home, with PMH n/f HTN, HLD, IDDM, PE, bladder cancer s/p TURBT. He is presenting with sepsis, necrotizing fascitis, rhabdomyolysis, and is currenlty intubated/sedated. He also now has a RV thrombus/mass
with evidence of reduced LVEF (30-35%), reduced RV systolic function, enlarged RV. He is also exhibiting increased oxygenation requirements (most recent ventilator settings are TV 500 mL, RR 18, PEEP 8mmHg, FiO2 100%). It also may be possible that
the RV thrombus may break off and travel to lung worsening oxygenation. He underwent a procedure to insert catheter this morning in preparation for dialysis and/or CRRT.
Neuro
- Intubated
- sedated with precedex, fentanyl
CV
- norepinphrine 4mg
- vasopressin
- LVEF 30-35%, RV thrombus requiring heparin infusion
Respiratory
- Intubated, ventilator settings are
Assist/Control
- TV 500 mL
- RR 18
- FiO2 100%
- PEEP 8mmHg
- O2 saturation ~93%
GI:
- pantoprazole
Renal:
- Lactate 1.9
- Normal gap metabolic acidosis
- Cr 2.6
- Nephrology reccs plan for dialysis or CRRT
ID:
- Continue zosyn and clindamycin
- d/c vancomycin
Endo:
- insulin drip
Heme:
- heparin drip for the RV thrombus
General:
- Code status is now DNR
Plan summary:
- Now DNR
- Monitor VS and adjust pressors for support as needed
- Plan for dialysis or CRRT due to worsening volume status
- volume status is in setting of worsening renal function, volume overload, systolic dysfunction, sepsis
- Abx: clindamycin and zosyn, f/u cultures
Recommendations are not final until attending note/attestation
Subjective Dataa
Subjective Data
Date of Service:
Date of Service: November 05, 2024
Subjective:
78 yo M coming from home, with PMH n/f HTN, HLD, IDDM, PE, bladder cancer s/p TURBT. He initially p/w weakness, leg pain, chills and was found to have necrotizing fascitis s/p fasciotomy and debridement x2 (11/03/2024, and 11/04/2024).
Interim events are notable for:
11/04/2024 evening BMP: K+ 5.5, bicarbonate of 15. Bicarbonate drip was started, and NGT placed and lokelma administered
11/04/2024 echocardiogram: thrombus/mass in RV with reduced RV systolic funtion. LVEF = 30-35%; estimated PA pressure of 30-35mmHg
IR inserted catheter for HD or CRRT on 11/05/2024 morning.
This morning, the patient remains intubated and sedated.
After Dr. Amador spoke with patient family, code status has been updated to DNR.
Review of Systems
General: Unobtainable - Sedation
Objective Data
Data Reviewed
Vital Signs / I&O / Oxygen:
Vital Signs
Temp Pulse Resp BP Pulse Ox
97.8 F 93 18 120/65 97
11/05/24 03:21 11/05/24 07:45 11/05/24 07:45 11/05/24 00:00 11/05/24 07:45
Intake and Output
11/04/24 11/05/24 11/06/24
06:59 06:59 06:59
Intake Total 5052.5 / 5210.0 5321.5 / 5715.2 393.7 / 393.7
Output Total 248 / 253 191 / 191 0 / 0
Balance 4804.5 / 4957.0 5130.5 / 5524.2 393.7 / 393.7
SaO2 [A/C] 99
SaO2 97
Nasal Cannula flow liters per 6
minute
Physical Exam
General: Other (intubated/sedated)
Cardiovascular: Regular Rhythm and Other (no murmurs)
Respiratory: ET Tube
GI: Other (hernia)
Neurology: Other (sedated)
Skin: Other (mottling of fingertips/toes; bandages on right thigh)
Labs/Micro/Reports
Lab Data
11/05/24 04:16
11/05/24 04:16
Laboratory Results
11/04/24 11/05/24 11/05/24
20:00 02:30 04:16
APTT 40.6 H 131.3 H
pH 7.27 L
pCO2 43
pO2 146 H
HCO3 19.7 L
O2 Delivery Level
Microbiology
11/04/24 10:26 Leg - Right Gram Stain - Preliminary
11/03/24 21:57 Leg - Right Gram Stain - Preliminary
11/03/24 15:44 Blood/Venous Blood Culture - Preliminary
Positive culture in progress
11/03/24 15:44 Blood/Venous Gram Stain - Preliminary
11/03/24 15:44 Blood/Venous Blood Culture - Preliminary
Positive culture in progress
11/03/24 15:44 Blood/Venous Gram Stain - Preliminary
11/03/24 23:54 Nose Nasal Screen MRSA (PCR) - Final
MRSA not detected - performed by PCR methodology.
WBC 17.5 from 15.1
ABG: pH 7.27; pCO2 43; pO2 146
Lactate 1.9 from 2.3 prior
Cr 2.6 from 2.4
AST/ALT 263, 118
CK 9000 from 05350 prior
Imaging:
CXR 11/05/2024 (post procedure): no PTX
TTE 11/04/2024:
CONCLUSIONS
Normal left ventricular size with moderately reduced LV systolic function
visually estimated 30-35%
Normal LV wall thickness
Grade 1 diastolic dysfunction
Enlarged right ventricle with reduced RV systolic function
There is a large echodensity in the RV apex near the moderator band, suspicious
for thrombus versus mass
The IVC and hepatic veins are dilated and the IVC does not collapse. No masses
seen in the IVC
Thickened and calcified mitral valve leaflets with mitral annular
calcification. Trace mitral regurgitation
Trileaflet sclerotic aortic valve without stenosis or regurgitation
Trace tricuspid regurgitation
Estimated pulmonary artery pressure of 30-35 mmHg. Assuming a right atrial
pressure of 15 mmHg.
No pericardial effusion. Pleural effusion present.
No prior study available for comparison
Study results discussed with inpatient nuclear instructor and surgical teams
--- NOTE | 2024-11-05 08:25 | CON.CAR ---
Addendum entered and electronically signed by Rashmi Harrington DO 11/05/24 16:11:
Attempted to contact family but unable to reach or leave answering message. Cell phone number for primary contact, spouse Alis is incorrect per individual that answered. No answer at home phone number. Also tried son Jose Miguel, no message left on
answering machine as there was no identifying outgoing message.
Addendum entered and electronically signed by Rashmi Harrington DO 11/05/24 16:07:
I saw and examined the patient.
The Manager Mail's note was reviewed and I agree with the note.
Comment: Patient was seen and examined with cardiac PA. 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 Patient is a 78-year-old male with past medical history of insulin-dependent diabetes with
peripheral neuropathy, hypertension, hyperlipidemia, bladder cancer (urachal adenocarcinoma) s/p resection in 2020 with recurrence s/p TURBT and chemotherapy 2023, history of PE (prior eliquis) who presented to [facility] due to progressive generalized
malaise, nausea/vomiting, and fever. He also noted RLE immobility and pain, but no wounds or trauma to R leg. Noted by CTAP imaging to have evidence of necrotizing fasciitis and has undergone I&D x2 since admission. With evidence of septic
shock/bacteremia and worsening JALEN, making limited urine and on multiple pressors. He had episode of afib with RVR on arrival, but since has been in SR with PACs/PVCs. Echo showed newly reduced EF with concern for TV mass vs thrombus. Cardiology
consulted for evaluation. Per nursing nearly oliguric with a couple of cc of urine per hour not responding to Lasix with plans for placement of HD catheter and likely CRRT later today.
General: Intubated/sedated.
Heart: Regular, positive S1/S2, No murmur/rub
Lungs: Limited exam anterior lateral, decreased bilaterally
Abd: Soft. Absent bowel sounds
Ext: ++ edema. Cool distal extremities; mottled feet. Right thigh leg with surgical dressing
ECHO 11/04/2024: EF 30 to 35%, grade 1 diastolic dysfunction, enlarged RV with reduced RV systolic function, large echodensity in RV apex near moderator band, suspicious for thrombus versus mass, IVC and hepatic veins dilated, MAC, trace MR, PAP 30 to
35 mmHg, pleural effusion present
Plan:
Critically ill 78-year-old gentleman with multisystem organ failure/septic shock intubated and sedated on multiple pressors with gram-negative bacteremia and right thigh necrotizing fasciitis by CTAP. He has undergone I&D on 11/03 and 11/04/2024 found
to have new cardiomyopathy with LV ejection fraction estimated 30 to 35% as well as reduced RV systolic function and dilatation found to have a large right ventricular apex echodensity near the moderator band, suspicious for thrombus versus mass.
IVC and hepatic veins are also dilated. Estimated pulmonary artery systolic pressure 30-35 mmHg.
- Patient does have hypercoagulable status with history of cancer and prior history of remote PE previously on Eliquis
- Discussed with general surgery and doll wig maker rooted hair�will start IV heparin and monitor CBC closely
- General surgery anticipates he may need additional surgical intervention for necrotizing fasciitis
- Kidney function continues to worsen, creatinine 2.6 with minimal urine output; failed trial of Lasix. Nephrology following, may need initiation of CRRT today.
- He had brief episode of atrial fibrillation by EKG dated 11/03. In sinus rhythm/sinus tach on review of telemetry overnight without clear recurrences of A-fib. Does have some PACs. Will follow on telemetry
- Overall prognosis very poor.
- Patient is now DNR
- d/w nursing
Original Note:
Consultation
Consultation Request
Date/Time Consultation Performed: 11/05/24
Requesting Provider: Dr. Vidal
Performing Provider: Ghada Pereira PA-C for Dr. Harrington
Reason for Consultation: afib, abnormal echo
Medical History
-
Chief Complaint: malaise
History of Present Illness:
Patient is a 78-year-old male with past medical history of insulin-dependent diabetes with peripheral neuropathy, hypertension, hyperlipidemia, bladder cancer (urachal adenocarcinoma) s/p resection in 2020 with recurrence s/p TURBT and chemotherapy
2023, history of PE (prior eliquis) who presented to [facility] due to progressive generalized malaise, nausea/vomiting, and fever. He also noted RLE immobility and pain, but no wounds or trauma to R leg. Noted by CTAP imaging to have evidence of
necrotizing fasciitis and has undergone I&D x2 since admission. With evidence of septic shock/bacteremia and worsening JALEN, making limited urine and on multiple pressors. He had episode of afib with RVR on arrival, but since has been in SR with
PACs. Echo showed newly reduced EF with concern for TV mass vs thrombus. Cardiology consulted for evaluation. He is intubated, sedated
PMH:
IDDM
Peripheral neuropathy
HTN
HLD
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
History of PE, prior eliquis
Past Medical History
Past Medical History: Other (in HPI)
Social History
Personal:
Living: With Family
Employment: Retired
Family History
Family History: Unable to Obtain
Allergies / Home Medications
Allergy/AdvReac Type Severity Reaction Status Date / Time
No Known Allergies Allergy Verified 11/03/24 15:32
�Medication �Instructions �Recorded �Confirmed �Type
rosuvastatin 10 mg tablet 10 mg PO HS High cholesterol 07/18/11 11/03/24 History
lisinopril 10 mg tablet 10 mg PO HS Blood pressure 09/16/20 11/03/24 History
aspirin 81 mg tablet,delayed 81 mg PO HS Blood Clot 11/03/24 11/03/24 History
release Prevention/Tx
ibuprofen 200 mg tablet (Advil) 400 mg PO TIDPRN PRN mild pain 11/03/24 11/03/24 History
insulin aspart U-100 100 unit/mL 0 sliding scale dose SC AC Diabetes 11/03/24 11/03/24 History
(3 mL) subcutaneous pen (Novolog
FlexPen U-100 Insulin aspart)
insulin glargine 100 unit/mL (3 30 unit SC HS Diabetes 11/03/24 11/03/24 History
mL) subcutaneous pen (Lantus
Solostar U-100 Insulin)
Review of Systems
-
Unable to obtain full review of systems at this time due to: Patient Intubation
Physical Exam
Vital Signs
Temp Pulse Resp BP Pulse Ox
97.8 F 93 18 120/65 96
11/05/24 03:21 11/05/24 07:45 11/05/24 07:45 11/05/24 00:00 11/05/24 08:00
Lab Results
11/05/24 04:16
11/05/24 04:16
Physical Exam
General: Intubated
HEENT: Normocephalic, Moist Mucous Membranes and Other (NGT in place)
Respiratory: Clear and Non Labored Respirations
Cardiac: S1/S2 and Regular Rhythm
GI: Soft, Non Distended and Other (minimal bowel sounds)
Musculoskeletal: No Clubbing and No Edema
Skin: Warm, Dry and Other (R thigh with dressings with noted drainage )
Neuro: Sedated
Impression / Plan
-
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
Assessment:
Presentation with generalized malaise, N/V, fevers
R thigh necrotizing fasciitis s/p I&D 11/03 and 11/04/24
Septic shock
Gram neg bacteremia
VDRF, intubated
JALEN, low urine output
Elevated CPK
PAF, new diagnosis, brief episode on admission without clear recurrence
PACs
Cardiomyopathy, EF 30-35%
Large echodensity in RV apex, concern for thrombus vs mass
IDDM
Peripheral neuropathy
HTN
HLD
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
History of PE, prior eliquis
ECHO 11/04/2024: EF 30 to 35%, grade 1 diastolic dysfunction, enlarged RV with reduced RV systolic function, large echodensity in RV apex near moderator band, suspicious for thrombus versus mass, IVC and hepatic veins dilated, MAC, trace MR, PAP 30 to
35 mmHg, pleural effusion present
Plan:
- Patient presents with generalized malaise, nausea/vomiting, fevers as well as altered mental status and found to have evidence of septic shock with gram-negative bacteremia and right thigh necrotizing fasciitis by CTAP. He has undergone I&D on
11/03 and 11/04/2024. General surgery anticipates he may need additional surgical intervention
- remains critically ill
- Kidney function continues to worsen, creatinine 2.6. Nephrology following, may need initiation of HD versus CRRT today. Urine output reportedly minimal per nursing
- He had brief episode of atrial fibrillation by EKG dated 11/03. In sinus rhythm/sinus tach on review of telemetry overnight without clear recurrences of A-fib. Does have some PACs. Will follow on telemetry
- Echocardiogram with results as above, EF 30 to 35%. Guideline directed medical therapy limited due to significant hypotension requiring multiple pressors including levo at 28, vaso at 0.03.
- Echo also shows concern for TV mass versus more likely thrombus. Patient has been started on IV heparin. Of note he has history of PE and was previously on Eliquis. Hemoglobin stable at 12
- Continue antibiotics. ID following. Await blood cultures and right lower extremity wound culture
- Overall prognosis very poor. He remains a full code at this time.
- d/w nursing
Data Reviewed
-
EKG: Tracing Personally Visualized and interpreted
CT Scan: Report Reviewed by me
Medical Tests (Nuc Med, Echo etc): Report Reviewed by me
Labs: Labs Reviewed by me
Old Records: Reviewed
--- NOTE | 2024-11-05 08:30 | PTCARENOTE ---
Assumed care of pt at 0700. Received pt intubated, #8.0 ETT 24cm at lip, AC 16/500/40/5. Pt sedated on Fentanyl and Precedex gtt for RASS-2. Levophed at 28mcg/min and Vaso at 0.03 units/min. D5W with 3 amps HCO3 at 100cc/hr. Heparin gtt per protocol
and Insulin gtt with glycemic protocol. See med titration flowsheets on worklist for med titration details throughout the shift. Pt awakens easily, startles easily and PHAM. Pt denies pain, is able to be calmed down, can follow commands and shake/nod
head appropriately. RLE wrapped in Kerlix and dressing noted to have large amount of serosanguinous drainage which was leaking onto the pad underneath. Right thigh warm touch but below the knee is cooler in temperature, toes dusky with > 2sec cap
refill but this was also the case for the left foot and both hands as well. Positive doppler DP and PT signals to RLE. SR 90s on monitor with BBB, PVC, PACs. See nursing shift assessment flowsheet for full physical assessment details.
--- NOTE | 2024-11-05 08:57 | PN.DE.MGMTRT ---
Insulin Management
- -
11/05/2024 Diabetes Management Consult
Patient admitted 11/03 with weakness, N & V, sepsis, new afib, necrotizing fasciitis R thigh. PMH HTN, HLD, diabetes, bladder CA, PE. Prior to admission was taking novolog ss AC with lantus 30 units @ HS. A1C on admission 7.3. Cr today 2.6, eGFR
24.48.
Patient is critically ill, POD 2 s/p surgery for r thigh necrotizing fasciitis. Currently intubated on ventilator.
Currently receiving glycemic protocol insulin infusion. Requiring 2.3 to 4 units of insulin per hour. Will continue insulin infusion. Discussed with nurse.
Will follow
Diabetes History
- -
Type of Diabetes: 2 requiring insulin
Pre-Admission Diabetes Regimen
11/04/24 11/04/24 11/05/24
12:24 20:00 00:10
Creatinine 2.0 H 2.2 H 2.4 H
11/05/24
04:16
Creatinine 2.6 H
Lab Results
Hemoglobin A1c 7.3 % (4.0-5.6) H 11/04/24 04:01
Insulin Pump Settings
IP Diabetes Regimen
11/04/24 11/04/24 11/04/24
12:24 12:26 15:49
Glucose 212 H
POC Glucose 187 H 95
11/04/24 11/04/24 11/04/24
16:51 18:09 19:09
Glucose
POC Glucose 173 H 139 H 142 H
11/04/24 11/04/24 11/04/24
20:00 21:57 23:20
Glucose 229 H
POC Glucose 226 H 205 H
11/05/24 11/05/24 11/05/24
00:10 00:17 01:32
Glucose 198 H
POC Glucose 198 H 173 H
11/05/24 11/05/2425
02:30 04:03 04:16
Glucose 143 H
POC Glucose 175 H 154 H
11/05/24 11/05/24
05:03 07:12
Glucose
POC Glucose 134 H 114 H
Patient Education
[2024-11-05] MEDS: SODIUM BICARBONATE 1150 MEQ IV (09:00)
[2024-11-05 09:18] LABS: Glucose - Point of Care 101 mg/dl (70-99)
--- NOTE | 2024-11-05 09:27 | W.PN.ID1 ---
Date of Service
Date of Service: November 05, 2024
Today's Communication
DC Vancomycin.
Continue Zosyn, clindamycin.
Assessment / Plan
#Right thigh acute necrotizing fasciitis
# Anaerobic bacteremia x 2 sets due to necrotizing fasciitis,
# Septic shock due to necrotizing fasciitis
#Fever
# Leukocytosis worse
#JALEN worse, may need renal replacement therapy
# New onset atrial fibrillation with right ventricular mass/thrombus
- 11/03, 11/04 status post OR I&D and fasciotomy.
- Appreciate surgeons. Tissue cultures are pending
-Await identification of the Gram variable rods in blood cultures. Suspect clostridial species
- Follow repeat blood cultures
-JALEN is worse. The avoid vancomycin and Zosyn combination. Discontinue vancomycin.
-Continue Zosyn, adjust dose renally.
- Continue short course clindamycin 900 mg IV every 8 hours as toxin inhibitor
- Monitor renal function closely
- Trend temperature, white count, vitals
- Prognosis remains guarded
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
Diabetes mellitus
Neuropathy
Hypertension
Dyslipidemia
PE
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
Appendectomy
Chief Complaint
-: Other (Necrotizing fasciitis)
Subjective / Review of Systems
Remains critically ill on vent
Vital Signs / Physical Exam
Vital Signs
Vital Signs
Temp Pulse Resp BP Pulse Ox
98.5 F 89 17 120/65 96
11/05/24 08:00 11/05/24 09:00 11/05/24 09:00 11/05/24 00:00 11/05/24 08:00
Physical Exam
Constitutional: Acutely Ill
Eyes: Sclera Anicteric
Cardiovascular: Regular Rate and S1/S2
Pulmonary: Clear (Anterior lungs)
Gastrointestinal: Soft, Tender, Distended and Non Distended
Genito-Urinary: Browne
Extremities: Edema (Right lower extremity) and Cyanosis (Digits)
Neurological: Other (Sedated)
Lines: Port (Right chest wall no erythema)
Objective Data
Lab Data
Lab Results
11/05/24 04:16
11/05/24 04:16
PT 19.3 Sec (11.4-14.6) H 11/03/24 23:54
INR 1.60 11/03/24 23:54
APTT 131.3 Sec (23.4-35.0) H 11/05/24 02:30
Estimated Creat Clear 26 ml/min 11/05/24 04:16
Lactic Acid 1.9 mmol/L (0.7-2.0) 11/05/24 05:58
Total Bilirubin 1.7 mg/dl (0.2-1.3) H 11/05/24 04:16
AST 263 U/L (17-59) H 11/05/24 04:16
ALT 118 U/L (0-50) H 11/05/24 04:16
Alkaline Phosphatase 57 U/L (38-126) 11/05/24 04:16
Amylase 39 U/L (30-110) 11/04/24 07:51
Most recent labs reviewed.
Micro Results:
11/03/24 21:57 Anaerobic Culture - Preliminary
Leg - Right Culture pending. Anaerobic cultures are examined after 3
days incubation. Additional information to follow.
11/03/24 21:57 Wound Culture - Preliminary
Leg - Right No growth
Gram Stain - Preliminary
11/03/24 15:44 Blood Culture - Preliminary
Blood/Venous Positive culture in progress
Gram Stain - Preliminary
11/03/24 15:44 Blood Culture - Preliminary
Blood/Venous Positive culture in progress
Gram Stain - Preliminary
11/05/24 04:16 Blood Culture - Pending
Blood/Venous
11/05/24 05:58 Blood Culture - Pending
Blood/Venous
11/04/24 10:26 Tissue Culture - Pending
Leg - Right Gram Stain - Preliminary
11/03/24 23:54 Nasal Screen MRSA (PCR) - Final
Nose MRSA not detected - performed by PCR methodology.
11/03/24 15:44 Urine Culture - Pending
Urine
--- NOTE | 2024-11-05 10:13 | W.PN.NEPH.PH ---
Today's Communication / Plan
-
follow labs and resp status
likely CRRT later today
Assessment/Plan
-
IMP:
Severe sepsis
Necrotizing fascitis of right leg s/p debridement
Rhabdomyolysis
JALEN
L acidosis
New onset AF
RV thrombus
EF 30-35%
elevated LFTs
VDRF
HX IDDM
Benign HTN
HLD
HX PE
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
PORT at [facility]
h/o K stone
Plan:
A/w AMS, nausea and noted severe sepsis from necrotizing fascitis of right leg
s/p I&D 11/03 and excision debridement on 11/04, potential OR again per surg
UA seem UTI sample, await cx
CT shows no hydro, 2mm nephrolith left kidney, right kidney cysts
JALEN seem prerenal now progressed to ATN, anuric and no response to lasix
hyperkalemia better now
monitor met acidosis-improving with iv bicarb gtt
Ck is improving
titrate pressor to maintain MAP>65
HD catheter placed today, likely CRRT later today
10kg over AW, monitor FIO2
on heparin gtt for suspected RV thrombus, echo noted low EF 30-35%
adjust meds renally
d/w nursing and ICU
d/w and son on phone in detail
CC time spent 40min
guarded prognosis reviewed with family and asked them to have GOC with rest of the family
-
-
Date of Service: November 05, 2024
CC / HPI / ROS
-
Chief Complaint:
JALEN
History of Present Illness:
cr up at 2.6, anuric with john
wt is 10kn from admit
remains on pressors for hypotension
WBC up at 17k
k was up last night 5.5, now better at 4.9
CK better at 9k
Review of Systems:
remains intubated, FIo2 40%
sedated
Labs
-
Labs:
WBC 17.5 10^3/uL (4.8-10.8) H 11/05/24 04:16
RBC 3.85 10^6/uL (4.70-6.10) L 11/05/24 04:16
Hgb 12.0 g/dL (13.0-18.0) L 11/05/24 04:16
Hct 36.0 % (39.0-52.0) L 11/05/24 04:16
Plt Count 187 10^3/uL (130-400) 11/05/24 04:16
Sodium 135 mmol/L (135-145) 11/05/24 04:16
Potassium 4.9 mmol/L (3.5-5.1) 11/05/24 04:16
Chloride 107 mmol/L (98-107) 11/05/24 04:16
Carbon Dioxide 19 mmol/L (22-30) L 11/05/24 04:16
BUN 47 mg/dl (9-20) H 11/05/24 04:16
Creatinine 2.6 mg/dL (0.7-1.3) H 11/05/24 04:16
eGFR 24.48 11/05/24 04:16
Glucose 143 mg/dl (70-99) H 11/05/24 04:16
Calcium 7.1 mg/dl (8.4-10.2) L 11/05/24 04:16
Phosphorus 6.6 mg/dl (2.5-4.5) H 11/05/24 04:16
Albumin 2.5 g/dl (3.5-5.0) L 11/05/24 04:16
Physical Exam
-
Vital Signs:
Vital Signs
Temp Pulse Resp BP Pulse Ox
98.5 F 89 17 120/65 96
11/05/24 08:00 11/05/24 09:00 11/05/24 09:00 11/05/24 00:00 11/05/24 08:00
Cardiovascular:: Regular rate and rhythm
Respiratory:: Bilateral: Coarse
Lung Excursion:: Abnormal
Abdomen:: Distended and Soft (motteling noted)
Extremity Edema:: +1: Bilateral: (trace, mottled feet)
John Catheter: Yes
Other Findings::
dressing intact of right thigh
[2024-11-05 10:21] LABS: Glucose - Point of Care 107 mg/dl (70-99)
[2024-11-05] MEDS: SUBLIMAZE 100 IV ×2 (10:35→22:18)
[2024-11-05] MEDS: NSS (PRESERVATIVE FREE) 10 ML IV (10:36)
--- NOTE | 2024-11-05 11:01 | W.PN.GS2 ---
Addendum entered and electronically signed by Mynor Baker MD 11/05/24 18:03:
Patient seen and examined. Agree with assessment plan as documented below.
Intubated and sedated
Dressing change performed at bedside largely stable, no significant necrosis, purulence, or dishwater fluid immediately in wound bed, though with continued concerning findings of mottled appearance of his lower extremity and abdomen
Patient is a 78 yo M with a PMH notable for DM-II and urachal adenocarcinoma (s/p resection & chemo 2023) who p/w RLE pain, found to have necrotizing fasciitis w subsequent development of sepsis & gram variable bacteremia
S/p RLE debridement x2 (POD1 from most recent) with clinical deterioration, renal failure, ventilator dependence.
Recently found on PING yesterday with reduced LV systolic function (EF 30 to 35%) as well as a large echodensity within the RV appendix concerning for a thrombus versus mass, started on a Hep gtt
Afebrile, on increased pressor support
Labs notable for increased WBC, stable Hb and platelets, elevated bilirubin and LFTs, worsening JALEN, elavted CKs, normalized lactate
Tissue cultures are still pending, BCx with GNR, remains on multi-abx regimen
Remains critically ill with clinical deterioration and MSOF (beginning HD today, LFTs elevated, ventilator dependent) 2/2 septic shock and ongoing sepsis.
Would ideally take him back for a repeat exploration, possible debridement and dressing change. However, risk of complications from stopping heparin in light if his large RV thrombus assessed as higher than risk of delaying additional debridement -
no plan for OR today.
Son updated at bedside. All questions answered. Made DNR.
Plan:
- Continue abx regimen per ID (zosyn, clindamycin; vanc discontinued 2/2 JALEN)
- Follow tissue cultures (pending)
- Wound care to continue mgmt of RLE wounds s/p debridement (wet-to-dry Dakin's solution wound packing placed post-op)
- Hold on taking to OR for additional soft tissue debridement at this time, given need for ongoing anticoagulation
Original Note:
Today's Communication / Plan
-
Plan:
- Continue abx regimen per ID (zosyn, clindamycin; vanc discontinued 2/2 JALEN)
- Follow tissue cultures (pending)
- Wound care to continue mgmt of RLE wounds s/p debridement (wet-to-dry Dakin's solution wound packing placed post-op)
- Hold on taking to OR for additional soft tissue debridement at this time, given need for ongoing anticoagulation
Assessment / Plan
-
Patient is a 78yo M with a PMH notable for DM-II and urachal adenocarcinoma (s/p resection & chemo 2023) who p/w RLE pain, found to have necrotizing fasciitis w subsequent development of sepsis & gram variable bacteremia, now s/p RLE debridement x2
(POD1 from most recent) with clinical deterioration, renal failure, ventilator dependence.
Assessment: Pt clinical deterioration 2/2 septic shock (beginning HD today, LFTs elevated, ventilator dependent). Ongoing sepsis, WBC elevated to 17. Elevated CK 2/2 extensive RLE debridement & nec fasc. From surgical/nec fasc standpoint, s/p RLE
debridement yesterday without new areas of spreading erythematous or dusky tissue beyond dressing. Per nursing note last night, 'R toes dusky with >2sec cap refill but this was also the case for the left foot and both hands as well. Positive doppler
DP and PT signals to RLE.' Encouraging in terms of lateral spread of soft tissue infection, but not possible to r/o spread from exam alone. Tissue cultures are still pending, and pt remains on multi-abx regimen. Pt started on heparin today due to
new embolus visualized in RV. Risk of stopping heparin assessed as higher than risk of delaying additional debridement - no plan for OR today.
Plan:
- Continue abx regimen per ID (zosyn, clindamycin; vanc discontinued 2/2 JALEN)
- Follow tissue cultures (pending)
- Wound care to continue mgmt of RLE wounds s/p debridement (wet-to-dry Dakin's solution wound packing placed post-op)
- Hold on taking to OR for additional soft tissue debridement at this time, given need for ongoing anticoagulation
Time Spent
Total Time Spent with Patient (in minutes): 10
Subjective Data
-
Date of Service: November 05, 2024
Patient intubated and sedated.
Objective Data
-
Intake and Output
11/04/24 11/05/24 11/06/24
06:59 06:59 06:59
Intake Total 5052.5 / 5210.0 5321.5 / 5715.2 1024.8 / 1024.8
Output Total 248 / 253 191 / 191
Balance 4804.5 / 4957.0 5130.5 / 5524.2 1016.8 / 1016.8
Intake:
Oral fluids 1919 / 192
IV fluids (Total) 2782.5 / 2940.0 4071.5 / 4265.2 774.8 / 774.8
D5w 1,000 ml @ 100 mls/hr IV . 900 / 1000 400 / 400
[id number] GIL with Sodium
Bicarbonate 150 Meq Rx#:
[id number]
Fentanyl 160 / 170 40 / 40
Heparin 143.9 / 158.9 60 / 60
Insulin 29.5 / 31.8 9.2 / 9.2
Levophed 42.5 / 50.0 725.5 / 778.0 210.0 / 210.0
Lr 1,000 ml @ 150 mls/hr IV . 1640 / 1790 1350 / 1350
Q6H40M GIL Rx#:[id number]
NS bolus 1000 / 1000
Nss 1,000 ml @ 125 mls/hr IV . 625 / 625
Q8H GIL Rx#:[id number]
Precedex 20.6 / 25.5 19.6 / 19.6
Vasopressin 117 / 126 36 / 36
normosol 100 / 100
IV piggybacks 350 / 350 1155 / 1355 250 / 250
Feeding tube flush amount
Output:
Gastrointestinal tube output (
Total)
[place] Sump /
Urine, John 248 / 253 116 / 116 8 / 8
True urine output from hand 0 / 0
irrigation
Vital Signs
Temp Pulse Resp BP Pulse Ox
98.5 F 85 16 120/65 95
11/05/24 08:00 11/05/24 10:30 11/05/24 10:30 11/05/24 00:00 11/05/24 09:15
Lab Results
11/05/24 04:16
Calcium 7.1 mg/dl (8.4-10.2) L 11/05/24 04:16
Phosphorus 6.6 mg/dl (2.5-4.5) H 11/05/24 04:16
Magnesium 2.0 mg/dl (1.6-2.3) 11/05/24 04:16
Total Bilirubin 1.7 mg/dl (0.2-1.3) H 11/05/24 04:16
Direct Bilirubin 1.1 mg/dl (0.0-0.4) H 11/05/24 04:16
AST 263 U/L (17-59) H 11/05/24 04:16
ALT 118 U/L (0-50) H 11/05/24 04:16
Alkaline Phosphatase 57 U/L (38-126) 11/05/24 04:16
Total Protein 4.7 g/dl (6.3-8.2) L 11/05/24 04:16
Albumin 2.5 g/dl (3.5-5.0) L 11/05/24 04:16
Physical Exam
-
General: intubated & sedated
Cardiopulm: ventilator-dependent respiration
Abdominal: abd hernia; mild reticular cyanotic skin changes
MSK/Skin: RLE with extensive bandaging above & below knee up to hip; medial thigh dressing soaked with serosanguinous fluid; surrounding skin non-erythematous, not dusky, no crepitus noted; R foot with some mottling
: john catheter in place with no urine output
Patient has a john catheter: Yes
Patient has a central line: Yes (R IJ central line)
[2024-11-05 11:08] LABS: Glucose - Point of Care 118 mg/dl (70-99)
--- NOTE | 2024-11-05 11:17 | PTCARENOTE ---
HD cath placed. SpO2 dropping with supine position. Vent settings changed to RR18 and FiO2 60%. SpO2 continues to fall, maintaining 80%. FiO2 increased to 100%. BMP drawn.
[2024-11-05 11:21] LABS: APTT 176 Sec (23.4-35.0)
--- NOTE | 2024-11-05 12:10 | W.PN.UPDATE ---
Update Note
Progress Note Update
Multiple updates provided to early this a.m. and again in the afternoon along with son by phone
Concerned about clinical status, multiorgan failure
In the interim, patient has developed worsening oxygenation, now 100%, PEEP increased to 8
Left IJ HD catheter placed, no pneumothorax
Plateau pressure 18
PEEP increased to 8
After extensive discussion with multiple family members, , son, decision was made by family to make patient DNR
In their words, he would not want to be in a detention, would not want to be in a ventilator facility for prolonged period
We will respect their wishes
We will continue with supportive care
Reviewed with and son by phone and also reviewed again at the bedside with additional family members, and son
Updated critical care nursing
Updated primary service
Will continue to follow
TCCT 31 min
[2024-11-05 12:15] LABS: Blood Urea Nitrogen 47 mg/dl (9-20); Calcium 7.0 mg/dl (8.4-10.2); Carbon Dioxide 18 mmol/L (22-30); Chloride 107 mmol/L (98-107); Estimated Creatinine Clearance 28 ml/min; Glucose 122 mg/dl (70-99); Potassium 5.2 mmol/L (3.5-5.1); Sodium 136 mmol/L (135-145); eGFR 22.39
--- NOTE | 2024-11-05 12:17 | PTCARENOTE ---
Addendum entered by Kimber Ryan RN 11/05/24 12:28:
D5 HCO3 gtt stopped as ordered by accounting machine operator.
Original Note:
Vent settings to PEEP 8, RR 18, and FiO2 100% to maintain SpO2 >90%. Dr. Baker to bedside for updates. safety council director notified of plan for bedside dressing change. Qing ordered. Flight Physician discussed status and plan of care with by phone.
[2024-11-05 12:20] LABS: Glucose - Point of Care 106 mg/dl (70-99)
--- NOTE | 2024-11-05 12:20 | PN.CDI ---
CDI
- -
CDI:
Physician Documentation Request
Admit Date: 11/03/24 18:13
Dear Doctor Marcy,
Patient admitted for sepsis.
11/04 Hospitalist PN: 'Acute ventilatory dependent respiratory failure post op, AC 500/ RR 12/ FiO2 at 100% with P 5'
Please clarify the type of respiratory failure:
Type
Respiratory failure with hypoxia
Respiratory failure with hypercapnia
Respiratory failure with hypoxia and hypercapnia
Other, please specify
Unable to determine
Use of terms such as suspected, likely, concern for, or probable (associated with a specific diagnosis that is being evaluated, monitored, or treated as if it exists) are acceptable and can be coded in the inpatient setting, when documented at the
time of discharge.
Thank you,
Ann Harvey RN, BSN
CDI Specialist
Available via [facility] text
Please use your independent medical judgment in providing your response.
--- NOTE | 2024-11-05 12:54 | W.PN.HOSP.TC ---
Addendum entered and electronically signed by Woo Vidal MD 11/06/24 10:23:
Physical Exam
General: Other (Intubated and sedated . Port in anterior chest wall, right jugular central line )
HEENT: Atraumatic and Other (ET tube )
Respiratory: Decreased Breath Sounds
Cardiac: S1/S2
GI: Soft and Nontender, distended but soft ( hernia)
Genito-urinary: Browne; Negative Bloody Urine
Musculoskeletal: peripheral mottling, right thing dressing with sanguineous discharge.
Neuro: Other (Sedated )
Psych: Other (sedated
Original Note:
Today's Communication/Plan
-
Plan to try continuous renal replacement therapy utilizing pressure support medication
Continue ventilatory support
Continue mild IV fluid
IV heparin for RV thrombus
IV insulin for management of diabetes
Appreciate consultants help
Assessment / Plan
Assessment / Plan
78 male presented with sepsis
#Right thigh acute necrotizing fasciitis
# Anaerobic bacteremia x 2 sets due to necrotizing fasciitis
#Severe sepsis with lactic acidosis
# Septic shock
c/w broad spectrum IV ABx
No fevers, WBC is elevated
Remains on pressure support medications which probably will need to increase dose if starting hemodialysis
Appreciate surgery, ID and ICU doctors help
# Anaerobic bacteremia
Blood culture is gram variable rods
c/w IV ABx
Repeat blood culture is pending
# Acute hypoxic ventilatory dependent respiratory failure post op
AC 500/ RR 12/ FiO2 at 100% with P 5
Remained intubated post surgery 11/03 and 11/04
CXR was reviewed.
Appreciate pulmonary/ICU help
#JALEN with oligoric output with metabolic acidosis
Likely ATN due to sepsis
Hyperkalemia, s/p Lokelma
Now receiving insulin gtt also
He was taking Advil and on lisinopril prior to presentation
stopped lisinopril due to hypotension/ JALEN
c/w IVF, Browne catheter
DC ringer lactate gtt and replaced with NS
Maintain good volume and blood pressure status
JALEN: high possibility to continue to deteriorate , remains critical issue , plan to start continuous renal replacement therapy utilizing pressure support medications
Appreciate nephrology help
# Acute systolic heart failure, echo showed LVEF 30 to 35%. Continue pressure support. Echo also showed echodensity in the right ventricle, suspicious for thrombus. Started on IV heparin.
Monitor PTT
Patient has history of PE and was on Eliquis in the past.
# Elevated CPK due to non traumatic rhabdomyolysis from muscle injury/ infection
# Hypocalcemia, replaced
Recheck BMP in few hours.
# Sinus tachycardia, reactive
# IDDM
Change to insulin IV protocol
stopped insulin sliding scale with Lantus while critical
# DVT prophylxis, change to SQ heparin due to poor renal function , Add GI prophyalxis
# Prognosis remains guarded
Total time spent to see the patient, examine the patient, review data and lab result, discuss treatment plan with consultants, nursing staff around 55 minutes
Anticipated Discharge: > 48 hours
Subjective/Interval History
-
Date of Service: November 05, 2024
No improvement in urine out put over night
Continues to need pressure support
Objective Data
-
Labs:
Laboratory Results
11/05/24 11/05/24 11/05/24
00:10 02:30 04:16
WBC 17.5 H
Hgb 12.0 L
Hct 36.0 L
Plt Count 187
APTT 131.3 H
HCO3 19.7 L
Sodium 136 135
Potassium 5.0 4.9
Chloride 108 H 107
Carbon Dioxide 19 L 19 L
BUN 43 H 47 H
Creatinine 2.4 H 2.6 H
Glucose 198 H 143 H
Calcium 6.6 L* 7.1 L
Total Bilirubin 1.7 H
AST 263 H
ALT 118 H
Alkaline Phosphatase 57
11/05/24 11/05/24 11/05/24
10:08 10:50 18:00
WBC
Hgb
Hct
Plt Count
APTT 176 H* Pending
HCO3
Sodium 136
Potassium 5.2 H
Chloride 107
Carbon Dioxide 18 L
BUN 47 H
Creatinine 2.8 H
Glucose 122 H
Calcium 7.0 L
Total Bilirubin
AST
ALT
Alkaline Phosphatase
Vital Signs:
Vital Signs
Temp Pulse Resp BP Pulse Ox
99.4 F 85 16 120/65 93
11/05/24 11:36 11/05/24 10:30 11/05/24 10:30 11/05/24 00:00 11/05/24 12:00
I&O
11/04/24 11/05/24 11/06/24
06:59 06:59 06:59
Intake Total 5052.5 / 5210.0 5321.5 / 5715.2 1438.9 / 1438.9
Output Total 248 / 253 191 / 191 8 / 8
Balance 4804.5 / 4957.0 5130.5 / 5524.2 1430.9 / 1430.9
[2024-11-05] MEDS: HEPARIN 25000 UNITS/250 ML IV (13:02)
[2024-11-05 13:17] LABS: Glucose - Point of Care 95 mg/dl (70-99)
[2024-11-05] MEDS: DAKIN'S SOLUTION 0.25% 1/2 STRENGTH 473 ML TOPICAL (13:21)
[2024-11-05] MEDS: RFP-401 HD Soln (K+ 4 mEq/L) 15000 ML CRRT-IRR (13:39)
--- NOTE | 2024-11-05 13:52 | PTCARENOTE ---
CRRT initiated at 1320 without issue.
--- NOTE | 2024-11-05 15:02 | CM ---
Initial assessment completed with . Patient and live in a 2 story plus basement home with B/B on 2nd and 1/2 bath on 1st, 2 steps to enter. PLATE CUTTER patient was independent in ADL's and ambulation, drove. No use of DME but there is a RW and
SPC in the home. No in-home services. No HC-POA. PCP is Dr. Tia Chavarria and Pharmacy is [facility] in [place]. Also has [facility]. Discharge POC: Awaiting therapy evaluation and recommendation.
[2024-11-05] MEDS: DEXTROSE 50% SYRINGE 12.5 GRAMS IV ×4 (15:07→23:12)
[2024-11-05 15:15] LABS: Glucose - Point of Care 64 mg/dl (70-99)
[2024-11-05 15:41] LABS: Glucose - Point of Care 88 mg/dl (70-99)
--- NOTE | 2024-11-05 16:28 | WOUNDNOTE ---
RIGHT
RIGHT THIGH/GROIN
--- NOTE | 2024-11-05 16:29 | WOUNDNOTE ---
RIGHT THIGH/GROIN
--- NOTE | 2024-11-05 16:30 | WOUNDNOTE ---
RIGHT MEDIAL THIGH 1945, [id number]
--- NOTE | 2024-11-05 16:31 | WOUNDNOTE ---
RIGHT THIGH 1945, [id number]
--- NOTE | 2024-11-05 16:32 | WOUNDNOTE ---
WOC RN NOTE: Photos taken of right thigh wound as requested by Dr. Baker. Surgical service will continue to follow. Will follow peripherally.
--- NOTE | 2024-11-05 16:37 | PTCARENOTE ---
Addendum entered by Kimber Ryan RN 11/05/24 17:26:
Premedicated pt with PRN fentanyl.
Original Note:
Dressing change performed by Dr. Baker, residents, and Wound RN. Wet-Dry with dakins, kurlex and ABD pads. See note and pics.
[2024-11-05 16:42] LABS: Glucose - Point of Care 67 mg/dl (70-99)
--- NOTE | 2024-11-05 16:54 | W.PN.UPDATE ---
Update Note
Progress Note Update
Pt seen during CRRT
tolerating ok so far
UF goal 100cc/hr
dialysate 1.5lit/hr
bld flow 250-300cc/min
on heparin gtt for RV clot
follow labs Q6hrs
temp catheter functions fine
d/w nursing
Late entry note
[2024-11-05 18:20] LABS: Glucose - Point of Care 84 mg/dl (70-99)
[2024-11-05 18:28] LABS: APTT 79.9 Sec (23.4-35.0)
[2024-11-05 18:56] LABS: Hematocrit 34.8 % (39.0-52.0); Hemoglobin 11.5 g/dL (13.0-18.0); Mean Corp Hgb Conc. 33.0 g/dL (33.0-37.0); Mean Corpuscular Volume 93.5 fL (80.0-94.0); Platelet Count 153 10^3/uL (130-400); Red Cell Dist. Width 15.3 % (11.5-14.5)
[2024-11-05] MEDS: CALCIUM GLUCONATE 130 MG IV (20:08)
[2024-11-05 20:11] LABS: Blood Urea Nitrogen 43 mg/dl (9-20); Calcium 6.9 mg/dl (8.4-10.2); Carbon Dioxide 15 mmol/L (22-30); Chloride 107 mmol/L (98-107); Estimated Creatinine Clearance 28 ml/min; Glucose 76 mg/dl (70-99); Magnesium 2.1 mg/dl (1.6-2.3); Potassium 5.6 mmol/L (3.5-5.1); Sodium 134 mmol/L (135-145); eGFR 22.39
[2024-11-05 20:25] LABS: Glucose - Point of Care 57 mg/dl (70-99)
[2024-11-05 21:10] LABS: Glucose - Point of Care 92 mg/dl (70-99)
[2024-11-05] MEDS: RFP-400 HD Soln (K+ 2 mEq/L) 15000 ML CRRT-IRR (21:15)
[2024-11-05 22:32] LABS: Glucose - Point of Care 76 mg/dl (70-99)
--- NOTE | 2024-11-05 22:46 | PTCARENOTE ---
Assumed care of pt at 1900. Received pt intubated, #8.0 ETT 24cm at lip, AC 18/500/100/8, on Fentanyl at 100mcg/hr, Precedex at 0.4mcg/kg/min, Levophed (double concentrated) at 24mcg/min, Heparin drip at 1200 units/hr, and Vasopressin at 0.03
units/min. See med titration flowsheets on worklist for titration details throughout the shift. Pt on CRRT, running so far without issue. Pt has been anuric. Labs done by previous RN, ionized calcium low and required repletion (see EMAR), K+
elevated, reached out to Dr. Zabala who ordered 2K bath, bags changed at 2100. Pt has been SR 60s on monitor with BBB, 1st deg AVB, PACs. Occasionally HR will go into the 50s. Difficult to obtain pulse ox on patient, had been 97% at start of shift.
See nursing shift assessment flowsheet for full physical assessment details and neurovascular flowsheet for RLE assessment. Dressing to RLE with serosanguinous drainage, reinforced at start of shift by previous RN during bedside handoff.
[2024-11-05 23:21] LABS: Glucose - Point of Care 66 mg/dl (70-99)
[2024-11-05 23:49] LABS: Glucose - Point of Care 95 mg/dl (70-99)
[2024-11-06] MEDS: ZOSYN 50 IV ×5 (00:20→23:12)
[2024-11-06 00:47] LABS: B.E. -9.1 mmol/L; HCO3 18.4 mmol/L (21-28); O2 Saturation % 100.0 % (94-98); PCO2 45 mmHg (35-48); PO2 305 mmHg (83-108)
[2024-11-06 00:53] LABS: Hematocrit 35.9 % (39.0-52.0); Hemoglobin 11.8 g/dL (13.0-18.0); Mean Corp Hgb Conc. 32.9 g/dL (33.0-37.0); Mean Corpuscular Volume 95.2 fL (80.0-94.0); Platelet Count 141 10^3/uL (130-400); Red Cell Dist. Width 15.5 % (11.5-14.5)
[2024-11-06 01:07] LABS: APTT 61.3 Sec (23.4-35.0)
[2024-11-06 01:11] LABS: Blood Urea Nitrogen 41 mg/dl (9-20); Calcium 7.5 mg/dl (8.4-10.2); Carbon Dioxide 17 mmol/L (22-30); Chloride 108 mmol/L (98-107); Estimated Creatinine Clearance 30 ml/min; Glucose 82 mg/dl (70-99); Magnesium 2.1 mg/dl (1.6-2.3); Potassium 5.3 mmol/L (3.5-5.1); Sodium 137 mmol/L (135-145); eGFR 24.48
[2024-11-06] MEDS: PRECEDEX 100 IV ×4 (01:11→20:34)
[2024-11-06] MEDS: CALCIUM GLUCONATE 130 MG IV ×4 (01:11→20:40)
[2024-11-06] MEDS: PITRESSIN 100 IV ×3 (01:11→20:34)
[2024-11-06] MEDS: LEVOPHED 258 MG IV ×4 (01:12→19:48)
[2024-11-06] MEDS: HEPARIN 7900 UNITS IV (01:24)
[2024-11-06] MEDS: CLEOCIN 50 IV ×3 (01:27→17:30)
--- NOTE | 2024-11-06 01:35 | PTCARENOTE ---
Midnight physical and neurovascular assessments unchanged. Pt has been hypoglycemic x2 this shift requiring tx with D50. CRRT continues without issue. Remains on same drips and same vent settings. Still unable to obtain pulse ox reading on patient,
ABG ordered with scheduled labs, O2 sat 100% on ABG. SR/SB on monitor with PACs, BBB, 1st deg AVB. Pt currently on 0.5mcg/kg/min of Precedex and on this dose pt has not had any issues with being startled or anxious/agitated.
[2024-11-06 02:26] LABS: Glucose - Point of Care 85 mg/dl (70-99)
[2024-11-06 03:44] VITALS: BMI 31.2
[2024-11-06] MEDS: DEXTROSE 50% SYRINGE 12.5 GRAMS IV ×2 (04:20→07:42)
[2024-11-06 04:30] LABS: Glucose - Point of Care 61 mg/dl (70-99)
--- NOTE | 2024-11-06 04:37 | PTCARENOTE ---
0400 assessment unchanged, RLE neurovascular assessment unchanged. SB 50s on monitor with frequent PACs, monitor reading AFib but there are p waves present. BP has been labile, will stay in same range for a period of time but then shoot up to
170s-180s for no discernible reason (pt has been calm), or decrease with MAPs in low 50s. Levophed titrated to keep MAP >65, see med titration flowsheet, have been block charting throughout the shift. FiO2 decreased to 80% by RT at around 0345, all
other vent settings the same. Remains on same drips. Required another dose of D50 (1/2 amp) for blood glucose of 61 at 0418. CRRT continues, blood flow rate slowly increased over the last couple of hours to 250, access pressure WNL.
[2024-11-06 06:30] LABS: Hematocrit 37.1 % (39.0-52.0); Hemoglobin 12.1 g/dL (13.0-18.0); Mean Corp Hgb Conc. 32.6 g/dL (33.0-37.0); Mean Corpuscular Volume 95.9 fL (80.0-94.0); Platelet Count 145 10^3/uL (130-400); Red Cell Dist. Width 15.6 % (11.5-14.5)
[2024-11-06] MEDS: HEPARIN 25000 UNITS/250 ML IV ×2 (06:31→20:23)
[2024-11-06 06:49] LABS: Blood Urea Nitrogen 37 mg/dl (9-20); Calcium 7.6 mg/dl (8.4-10.2); Carbon Dioxide 19 mmol/L (22-30); Chloride 109 mmol/L (98-107); Estimated Creatinine Clearance 36 ml/min; Glucose 80 mg/dl (70-99); Magnesium 1.9 mg/dl (1.6-2.3); Potassium 4.6 mmol/L (3.5-5.1); Sodium 136 mmol/L (135-145); eGFR 29.91
--- NOTE | 2024-11-06 07:06 | PTCARENOTE ---
At 0607 CRRT alarmed for first time in the shift, attempted trouble shooting various alarms including swapping the arterial and venous lines, unsuccessful, filter appeared to be clogging, blood rinsed back, cartridge now being changed.
[2024-11-06 07:52] LABS: Glucose - Point of Care 68 mg/dl (70-99)
[2024-11-06 07:56] VITALS: BP 118/54
[2024-11-06] MEDS: SUBLIMAZE 100 IV ×2 (07:56→19:04)
[2024-11-06] MEDS: PROTONIX IV 40 MG IV (07:57)
[2024-11-06] MEDS: NSS (PRESERVATIVE FREE) 10 ML IV (07:57)
[2024-11-06 08:15] LABS: Glucose - Point of Care 108 mg/dl (70-99)
[2024-11-06 08:28] LABS: Glucose - Point of Care 99 mg/dl (70-99)
[2024-11-06 08:29] LABS: Glucose - Point of Care 96 mg/dl (70-99)
[2024-11-06] MEDS: DAKIN'S SOLUTION 0.25% 1/2 STRENGTH 473 ML TOPICAL (08:31)
--- NOTE | 2024-11-06 08:40 | W.PN.INTV ---
Addendum entered and electronically signed by Micheal Amador MD 11/06/24 12:47:
Patient seen and examined independently by myself. Resident note below reviewed, agree with assessment and plan
Overnight, patient remains critically ill requiring vasopressin, norepinephrine. Remains on volume cycle ventilation. FiO2 has been weaned, 82-year-old blood gas confirms adequate oxygenation. Patient continues with CRRT
Systolic pressure labile, becomes hypotensive with movement, positional changes.
ET tube in place
Peripheral cyanosis noted.
Chest exam is clear, decreased at the base
Abdominal exam protuberant, minimal mottling noted
Chronic venous stasis changes lower extremity, pulses dopplerable
Extensive right lower extremity dressing in place
Data reviewed
ABG 7.22/45/305 on 100%
Chest x-ray without acute findings. ET tube noted
A/P
Patient remains critically ill although has not progressed
Tolerating CRRT, creatinine down to 2.2
Negative fluid balance noted. ABG suggests adequate oxygenation. Pulse oximetry likely not accurate given peripheral cyanosis
Moving forward
Will decrease FiO2 to 40%, PEEP of 5, repeat ABG
Follow pO2 on ABG moving forward
Will adjust ET tube, advanced 2 cm.
Chest x-ray in a.m. following Dobbhoff tube placement 710 once confirmed plans for tube feeds to initiate 0/10. Will review with surgery
Nurse states that patient has labile blood pressure, hypotension with any movement
No evidence of pressure ulcers at this time
Once nutrition started, will need to place fecal management system as wound appears to be going up towards anal region
Hypoglycemia noted. Will start D5 half-normal
Follow
Continue to wean pressors as able
Check lactate, liver function
CRRT continuous
No changes with current ventilator settings except decreasing PEEP and FiO2
Repeat ABG in a.m.
Reviewed with critical care nursing, respiratory care, pharmacy
Reviewed with primary service, surgery
Updated son at bedside at length
TCCT 35 min
Original Note:
Today's Communication / Plan
Recommendations
Plan summary:
- Recheck lactate, LFTs
- Ordered D5 1/2NS 80mL/hr for blood glucose support
- Ventilator settings adjusted: (AC) RR 18 / TV 500 / PEEP 5 / FiO2 40
- Touch base w/ cardiology whether repeat echo is needed
Recommendations are not final until attending note/attestation
Assessment
-
In summary, this is a 78 yo M coming from home, with PMH n/f HTN, HLD, IDDM, PE, bladder cancer s/p TURBT. He is presenting with sepsis, necrotizing fascitis, rhabdomyolysis, and is currenlty intubated/sedated. He has a RV thrombus/mass with
evidence of reduced LVEF (30-35%), reduced RV systolic function, enlarged RV.
The most recent ABG shows pO2 of 305 mmHg. Thus, the ventilator settings were decreased FiO2 40% and PEEP 5 during rounds to prevent oxygen toxicity. The peripheral pulse oximeter measurements were probably inaccurate due to acrocyanosis.
Reassuringly, the CXR impression is largely stable from day prior, which may mean that the patient is not as volume overloaded as suspected (due to decrease in SpO2).
The dips in blood glucose will be addressed with D5 1/2NS saline. A recheck LFTs is considered to assess liver function, whether that is contributing to lower blood glucose values.
Neuro
- Intubated
- sedated with precedex, fentanyl
CV
- norepinphrine 4mg
- vasopressin
- LVEF 30-35%, RV thrombus requiring heparin infusion
- plan to touch base with cardiology whether repeat echo is warranted to evaluate the RV thrombus/mass
Respiratory
- Intubated, ventilator settings have been updated while on rounds to
Assist/Control
- TV 500 mL
- RR 18
- FiO2 40%
- PEEP 5mmHg
- Peak pressure: 24 mmHg; plateau pressure: 17 mmHg
- follow-up ABG ordered
GI:
- pantoprazole
- Recheck LFTs
Renal:
- CRRT yesterday
- Recheck lactate
- follow nephrology reccs
ID:
- Continue zosyn and clindamycin
Endo:
- consider taking off insulin drip
- ordered for D5 1/2NS 80mL/hr
Heme:
- heparin drip for the RV thrombus
Plan summary:
- Recheck lactate, LFTs
- Ordered D5 1/2NS 80mL/hr for blood glucose support
- Ventilator settings adjusted: (AC) RR 18 / TV 500 / PEEP 5 / FiO2 40
- Touch base w/ cardiology whether repeat echo is needed
Recommendations are not final until attending note/attestation
Subjective Dataa
Subjective Data
Date of Service:
Date of Service: November 06, 2024
Subjective:
78 yo M coming from home, with PMH n/f HTN, HLD, IDDM, PE, bladder cancer s/p TURBT. He initially p/w weakness, leg pain, chills and was found to have necrotizing fascitis s/p fasciotomy and debridement x2 (11/03/2024, and 11/04/2024).
Interim events:
11/05/2024: CRRT was performed; surgery team changed wound dressings
Overnight: decreased blood glucose, requiring 4x dextrose administration
This morning, patient remains intubated and sedated.
Review of Systems
General: Other (intuabted/sedated)
Objective Data
Data Reviewed
Vital Signs / I&O / Oxygen:
Vital Signs
Temp Pulse Resp BP Pulse Ox
97.4 F 64 18 120/65 97
11/06/24 08:00 11/06/24 07:00 11/06/24 07:00 11/05/24 00:00 11/06/24 08:00
Intake and Output
11/05/24 11/06/24 11/07/24
06:59 06:59 06:59
Intake Total 5321.5 / 5715.2 3631.3 / 3779.8 230.2 / 230.2
Output Total 191 / 191 3494.2 / 3494.2 0 / 0
Balance 5130.5 / 5524.2 137.1 / 285.6 230.2 / 230.2
SaO2 [A/C] 97
SaO2 97
Nasal Cannula flow liters per 6
minute
Physical Exam
General: Other (intubated/sedated)
Cardiovascular: Regular Rhythm and Other (no murmurs)
Respiratory: ET Tube
GI: Other (hernia)
Neurology: Other (sedated)
Skin: Other (mottling of fingertips/toes; bandages on right thigh)
Labs/Micro/Reports
Laboratory Results
11/05/24 11/05/24 11/06/24
10 18:08 00:35
APTT 176 H* 79.9 H 61.3 H
pH 7.22 L
pCO2 45
pO2 305 H
HCO3 18.4 L
O2 Delivery Level
WBC 12.5
Cr 2.2 (down from 2.6)
ABG: pH 7.22; pCO2 45; pO2 305
serum CO2 = 19
Imaging:
CXR: unchanged from 11/05/2024
IMPRESSION:
Overall, stable radiographic appearance from most recent radiograph. Parenchymal opacity medial left lower lung, with main differential considerations of atelectasis and/or pneumonia. Linear atelectasis within the right lower lung.
Blood cultures drawn 11/05/2024: no growth for 24 h
Microbiology
11/03/24 15:44 Blood/Venous Blood Culture - Preliminary
Positive culture in progress
11/03/24 15:44 Blood/Venous Gram Stain - Preliminary
11/05/24 05:58 Blood/Venous Blood Culture - Preliminary
No Growth in 24 hours- Final report to follow
11/05/24 04:16 Blood/Venous Blood Culture - Preliminary
No Growth in 24 hours- Final report to follow
11/03/24 15:44 Urine Urine Culture - Final
NO GROWTH
11/04/24 10:26 Leg - Right Tissue Culture - Preliminary
11/04/24 10:26 Leg - Right Gram Stain - Preliminary
11/03/24 21:57 Leg - Right Anaerobic Culture - Preliminary
Culture pending. Anaerobic cultures are examined after 3
days incubation. Additional information to follow.
11/03/24 21:57 Leg - Right Wound Culture - Preliminary
No growth
11/03/24 21:57 Leg - Right Gram Stain - Preliminary
11/03/24 15:44 Blood/Venous Blood Culture - Preliminary
Positive culture in progress
11/03/24 15:44 Blood/Venous Gram Stain - Preliminary
11/03/24 23:54 Nose Nasal Screen MRSA (PCR) - Final
MRSA not detected - performed by PCR methodology.
--- NOTE | 2024-11-06 08:41 | PTCARENOTE ---
Assumed care of pt at 0700. Received pt intubated, #8.0 ETT 24cm at lip, AC 18/500/80/8, Decreased to 60% by x ray technician. on Fentanyl at 100mcg/hr, Precedex at 0.5mcg/kg/min, Levophed (double concentrated) at 18mcg/min, Heparin drip at 1600
units/hr, and Vasopressin at 0.03 units/min. See med titration flowsheets on worklist for titration details throughout the shift. Pt off CRRT, restarted with new circuit at 0815. Pt has been anuric. Labs done by previous RN, ionized calcium and mag
low, required repletion (see EMAR). Pt has been SR 60s on monitor with BBB, 1st deg AVB, PACs. Occasionally HR will go into the 50s. Difficult to obtain pulse ox on patient, had been 97% at start of shift. See nursing shift assessment flowsheet for
full physical assessment details and neurovascular flowsheet for RLE assessment. Dressing to RLE with serosanguinous drainage, reinforced.
[2024-11-06 08:54] LABS: APTT 67.2 Sec (23.4-35.0)
[2024-11-06] MEDS: RFP-400 HD Soln (K+ 2 mEq/L) 15000 ML CRRT-IRR ×2 (09:07→17:37)
--- NOTE | 2024-11-06 09:13 | W.PN.CARDCBS ---
Addendum entered and electronically signed by Ravi Allen DO 11/06/24 11:10:
I saw and examined the patient.
The Slag Dumper's note was reviewed and I agree with the note.
Comment:
Plan:
Cont IV pressor support and wean as able.
Cont IV Heparin for potential RV apical thrombus
CM with EF 30 to 35% by echo.
Guideline directed medical therapy limited due to significant hypotension requiring multiple pressors
Cont support care and broad spectrum abx.
Overall prognosis is poor
Pt DNR
Discussed with nursing .
Original Note:
Today's Communication / Plan
-
wean pressors as able
follow rhythm on tele
continue IV heparin
remains critically ill
Impression / Plan
-
Primary Relations Manager: none prior to admission
Assessment:
Presentation with generalized malaise, N/V, fevers
R thigh necrotizing fasciitis s/p I&D 11/03 and 11/04/24
Septic shock
Gram neg bacteremia
VDRF, intubated
JALEN, low urine output
Elevated CPK
PAF, new diagnosis, brief episode on admission without clear recurrence
PACs
Cardiomyopathy, EF 30-35%
Large echodensity in RV apex, concern for thrombus vs mass
IDDM
Peripheral neuropathy
HTN
HLD
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
History of PE, prior eliquis
ECHO 11/04/2024: EF 30 to 35%, grade 1 diastolic dysfunction, enlarged RV with reduced RV systolic function, large echodensity in RV apex near moderator band, suspicious for thrombus versus mass, IVC and hepatic veins dilated, MAC, trace MR, PAP 30 to
35 mmHg, pleural effusion present
Plan:
- Patient presented with generalized malaise, nausea/vomiting, fevers as well as altered mental status and found to have evidence of septic shock with gram-negative bacteremia and right thigh necrotizing fasciitis by CTAP. He has undergone I&D on
11/03 and 11/04/2024. General surgery anticipates he may need additional surgical intervention
- remains critically ill
- started on CRRT, Cr 2.2 on 11/06, follow.
- he had 1 brief episode of afib on 11/03. remains in SR with PACs on review of tele overnight, follow.
- [id number] score of at least 4 for age, HTN, DM. continue IV heparin for now
- echo showed concern for TV mass vs more likely thrombus. continue IV heparin. Of note he has history of PE and was previously on Eliquis. Hemoglobin pending
- EF 30 to 35% by echo. Guideline directed medical therapy limited due to significant hypotension requiring multiple pressors including levo at 22, vaso at 0.03.
- Continue antibiotics. ID following. Await blood cultures and right lower extremity wound culture - thus far without growth at 24 hours
- Overall prognosis poor. He was made DNR by family 11/05.
- d/w nursing
Progress Note - Relations Manager
Subjective
Date of Service: November 06, 2024
intubated, sedated
Objective
Labs:
Labs
Hgb 12.1 g/dL (13.0-18.0) L 11/06/24 06:14
Hct 37.1 % (39.0-52.0) L 11/06/24 06:14
Plt Count 145 10^3/uL (130-400) 11/06/24 06:14
PT 19.3 Sec (11.4-14.6) H 11/03/24 23:54
INR 1.60 11/03/24 23:54
APTT 67.2 Sec (23.4-35.0) H 11/06/24 07:48
Sodium 136 mmol/L (135-145) 11/06/24 06:14
Potassium 4.6 mmol/L (3.5-5.1) 11/06/24 06:14
BUN 37 mg/dl (9-20) H 11/06/24 06:14
Creatinine 2.2 mg/dL (0.7-1.3) H 11/06/24 06:14
Glucose 80 mg/dl (70-99) 11/06/24 06:14
Vital Signs and I&O:
Vital Signs
Temp Pulse Resp BP Pulse Ox
97.4 F 62 18 118/54 97
11/06/24 08:00 11/06/24 08:30 11/06/24 08:30 11/06/24 07:56 11/06/24 08:00
Vital Signs
Temp Pulse Resp BP Pulse Ox
97.4 F 62 18 118/54 97
11/06/24 08:00 11/06/24 08:30 11/06/24 08:30 11/06/24 07:56 11/06/24 08:00
Intake & Output
11/04/24 11/05/24 11/06/24 11/07/24
07:59 07:59 07:59 07:59
Intake Total 5210.0 / 5367.5 5557.7 / 5751.4 3386.1 / 3467.8 293.4 / 293.4
Output Total 253 / 257 186 / 194 3494.2 / 3494.2 99 / 99
Balance 4957.0 / 5110.5 5371.7 / 5557.4 -108.1 / -26.4 194.4 / 194.4
Physical Exam
Physical Exam
GEN: No distress, intubated, sedated. on CRRT
HEENT: supple, mmm
LUNGS: CTA B/L, no wheezes/rales
CV: Reg, S1/S2, no murmur
EXT: No cyanosis, clubbing. Trace edema of B/L LE
NEURO: sedated
SKIN: Warm, pink, dry. No rash. R thigh dressing
--- NOTE | 2024-11-06 09:36 | W.PN.HOSP.TC ---
Today's Communication/Plan
-
.
Assessment / Plan
Assessment / Plan
Physical Exam
General: Other (Intubated and sedated . Port in anterior chest wall, right jugular central line )
HEENT: Atraumatic and Other (ET tube )
Respiratory: Decreased Breath Sounds
Cardiac: S1/S2
GI: Soft and Nontender, distended but soft ( hernia)
Genito-urinary: Browne; Negative Bloody Urine
Musculoskeletal: peripheral mottling, right thing dressing with sanguineous discharge.
Neuro: Other (Sedated )
Psych: Other (sedated
78 male presented with sepsis
#Right thigh acute necrotizing fasciitis
# Anaerobic bacteremia x 2 sets due to necrotizing fasciitis
#Severe sepsis with lactic acidosis
# Septic shock
c/w broad spectrum IV ABx
No fevers, WBC is elevated
Remains on pressure support medications which probably will need to increase dose if starting hemodialysis
Appreciate surgery, ID and ICU doctors help
# Anaerobic bacteremia
Blood culture is gram variable rods
c/w IV ABx
Repeat blood culture is pending
# Acute hypoxic ventilatory dependent respiratory failure post op
AC 500/ RR 18/ FiO2 at 8 0 % with P 8
Remained intubated post surgery 11/03 and 11/04
CXR was reviewed.
Appreciate pulmonary/ICU help
#JALEN with oligoric output with metabolic acidosis
He was taking Advil and on lisinopril prior to presentation
Likely ATN due to sepsis
Hyperkalemia, s/p Lokelma
Started CRRT 11/05
On insulin gtt also
s/p volume replacement. Browne catheter
Maintain good volume and blood pressure status
Appreciate nephrology help
# Acute systolic heart failure, echo showed LVEF 30 to 35%. Continue pressure support. Echo also showed echodensity in the right ventricle, suspicious for thrombus. Started on IV heparin.
Monitor PTT
Patient has history of PE and was on Eliquis in the past.
# Elevated CPK due to non traumatic rhabdomyolysis from muscle injury/ infection
# Hypocalcemia, replaced
# Sinus tachycardia, reactive, better today
# IDDM
Change to insulin IV protocol
stopped insulin sliding scale with Lantus while critical
# DVT prophylaxis, on IV Heparin gtt, GI prophylaxis
# Prognosis remains guarded. Code status DNR.
Total time spent to see the patient, examine the patient, review data and lab result, discuss treatment plan with consultants, nursing staff around 55 minutes
Anticipated Discharge: > 48 hours
Subjective/Interval History
-
Date of Service: November 06, 2024
Had CRRT but interrupted about clotting, to re-try the access again after heparin
no bleeding
still on 2 pressors
no fevers
Objective Data
-
Labs:
Laboratory Results
11/06/24 11/06/24 11/06/24
00:35 06:14 07:48
WBC 12.8 H 12.5 H
Hgb 11.8 L 12.1 L
Hct 35.9 L 37.1 L
Plt Count 141 145
APTT 61.3 H 67.2 H
HCO3 18.4 L
Sodium 137 136
Potassium 5.3 H 4.6
Chloride 108 H 109 H
Carbon Dioxide 17 L 19 L
BUN 41 H 37 H
Creatinine 2.6 H 2.2 H
Glucose 82 80
Calcium 7.5 L 7.6 L
11/06/24
12:00
WBC Pending
Hgb Pending
Hct Pending
Plt Count Pending
APTT
HCO3
Sodium Pending
Potassium Pending
Chloride Pending
Carbon Dioxide Pending
BUN Pending
Creatinine Pending
Glucose Pending
Calcium Pending
Vital Signs:
Vital Signs
Temp Pulse Resp BP Pulse Ox
97.4 F 62 18 118/54 97
11/06/24 08:00 11/06/24 08:30 11/06/24 08:30 11/06/24 07:56 11/06/24 08:00
I&O
11/05/24 11/06/24 11/07/24
06:59 06:59 06:59
Intake Total 5321.5 / 5715.2 3631.3 / 3779.8 441.9 / 441.9
Output Total 191 / 191 3494.2 / 3494.2 99 / 99
Balance 5130.5 / 5524.2 137.1 / 285.6 342.9 / 342.9
[2024-11-06] MEDS: MAGNESIUM SULFATE 100 IV (09:39)
--- NOTE | 2024-11-06 10:09 | W.PN.NEPH.PH ---
Today's Communication / Plan
-
CRRT
Assessment/Plan
-
IMP:
Severe sepsis
Necrotizing fascitis of right leg s/p debridement
Rhabdomyolysis
JALEN
L acidosis
New onset AF
RV thrombus
EF 30-35%
elevated LFTs
VDRF
HX IDDM
Benign HTN
HLD
HX PE
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
PORT at Rt Chest
h/o K stone
Plan:
CRRT continues
follow BMP
check CPK not TCK
on heparin gtt for RV thrombus
maintain john
abx for fasciitis
critical care time 33 minutes
-
-
Date of Service: November 06, 2024
CC / HPI / ROS
-
Chief Complaint:
JALEN
History of Present Illness:
JALEN/Cr 2.2 on CRRT
critically ill in ICU on vent/pressors
intubated sedated
K normal
mild acidosis persists
Review of Systems:
remains intubated, sedated
Labs
-
Labs:
eGFR 29.91 11/06/24 06:14
Albumin 2.5 g/dl (3.5-5.0) L 11/05/24 04:16
Physical Exam
-
Vital Signs:
Vital Signs
Temp Pulse Resp BP Pulse Ox
97.4 F 62 18 118/54 97
11/06/24 08:00 11/06/24 08:30 11/06/24 08:30 11/06/24 07:56 11/06/24 08:00
Cardiovascular:: Irregular rate and rhythm
Respiratory:: Bilateral: Coarse
Lung Excursion:: Normal
Abdomen:: Nontender and Soft
Bowel Sounds:: None
Extremity Edema:: None: Bilateral:
--- NOTE | 2024-11-06 10:12 | W.PN.UPDATE ---
Update Note
Progress Note Update
CRRT in progress. no issues, systemic heparin
2K bath
change UF to even given improving ventilation
[2024-11-06] MEDS: HEPARIN 3900 UNITS IV (10:28)
--- NOTE | 2024-11-06 10:33 | W.PN.GS2 ---
Today's Communication / Plan
-
- Wound care to continue mgmt of RLE wounds s/p debridement (wet-to-dry Dakin's solution wound packing placed post-op)
- Continue abx regimen per ID
- Follow RLE tissue cultures (pending)
- Given heparin requirement for RV thrombus, no surgical interventions planned
- Surgery signing off; re-engage if situation changes with nec fasc & anticoagulation
Assessment / Plan
-
Patient is a 78yo M with a PMH notable for DM-II and urachal adenocarcinoma (s/p resection & chemo 2023) who p/w RLE pain, found to have necrotizing fasciitis w subsequent development of sepsis & gram variable bacteremia, now s/p RLE debridement x2
(POD2 from most recent) with new RV thrombus, multiorgan failure, & ventilator dependence.
Assessment: Pt clinical deterioration continues, pt made DNR & palliative considerations being made. Given RV thrombus, pt continues on heparin which precludes any further surgical intervention. Tissue cx from RLE nec fasc pending. Continue with
proper wound care for RLE and monitoring for any superficial signs of nec fasc spread (erythematous or dusky tissue coloration). Holding any surgical intervention but able to be reengaged if situation changes.
Plan:
- Wound care to continue mgmt of RLE wounds s/p debridement (wet-to-dry Dakin's solution wound packing placed post-op)
- Continue abx regimen per ID
- Follow RLE tissue cultures (pending)
- Given heparin requirement for RV thrombus, no surgical interventions planned
- Surgery signing off; re-engage if situation changes with nec fasc & anticoagulation
Time Spent
Total Time Spent with Patient (in minutes): 10
Subjective Data
-
Date of Service: November 06, 2024
Patient intubated and sedated.
Objective Data
-
Intake and Output
11/05/24 11/06/24 11/07/24
06:59 06:59 06:59
Intake Total 5321.5 / 5715.2 3631.3 / 3779.8 441.9 / 441.9
Output Total 191 / 191 3494.2 / 3494.2 234 / 234
Balance 5130.5 / 5524.2 137.1 / 285.6 207.9 / 207.9
Intake:
IV fluids (Total) 4071.5 / 4265.2 2612.8 / 2695.0 245.6 / 245.6
D5w 1,000 ml @ 100 mls/hr IV . 900 / 1000 600 / 600
[id number] GIL with Sodium
Bicarbonate 150 Meq Rx#:
[id number]
Fentanyl 160 / 170 240.3 / 250.4 30.1 / 30.1
Heparin 143.9 / 158.9 307.2 / 323.3 48.1 / 48.1
Insulin 29.5 / 31.8 9.2 / 9.2
Levophed 725.5 / 778.0 1027.4 / 1061.7 102.9 / 102.9
Lr 1,000 ml @ 150 mls/hr IV . 1350 / 1350
Q6H40M GIL Rx#:[id number]
Nss 1,000 ml @ 125 mls/hr IV . 625 / 625
Q8H GIL Rx#:[id number]
Precedex 20.6 / 25.5 212.1 / 224.7 37.4 / 37.4
Vasopressin 117 / 126 216.6 / 225.7 27.1 / 27.1
IV piggybacks 1155 / 1355 1003.5 / 1069.8 196.3 / 196.3
Feeding tube flush amount
Amount instilled into GI Tube (
Total)
Shepherd Sump
Output:
Gastrointestinal tube output ( 75 / 75
Total)
Shepherd Sump 75 / 75
Urine, John 116 / 116 12 / 12 0 / 0
CRRT - Actual ultrafiltration 3482.2 / 3482.2 234 / 234
volume
Vital Signs
Temp Pulse Resp BP Pulse Ox
97.4 F 62 18 118/54 97
11/06/24 08:00 11/06/24 08:30 11/06/24 08:30 11/06/24 07:56 11/06/24 08:00
Calcium 7.6 mg/dl (8.4-10.2) L 11/06/24 06:14
Phosphorus 6.0 mg/dl (2.5-4.5) H 11/06/24 06:14
Magnesium 1.9 mg/dl (1.6-2.3) 11/06/24 06:14
Total Bilirubin 1.7 mg/dl (0.2-1.3) H 11/05/24 04:16
Direct Bilirubin 1.1 mg/dl (0.0-0.4) H 11/05/24 04:16
AST 263 U/L (17-59) H 11/05/24 04:16
ALT 118 U/L (0-50) H 11/05/24 04:16
Alkaline Phosphatase 57 U/L (38-126) 11/05/24 04:16
Total Protein 4.7 g/dl (6.3-8.2) L 11/05/24 04:16
Albumin 2.5 g/dl (3.5-5.0) L 11/05/24 04:16
Physical Exam
-
General: intubated & sedated
MSK: RLE in bandages changed yesterday late afternoon at bedside, packed with Dakin's-soaked gauze; RLE wound s/p debridement x2 extends along medial thigh to medial buttocks; acral cyanosis present
Patient has a john catheter: Yes
Patient has a central line: Yes
--- NOTE | 2024-11-06 10:33 | PTCARENOTE ---
Pt laid nearly supine to place pillow under hip. CRRT art line pulling air vs occluding. Art/venous connections reversed solving problem. MAP to high 40s during event requiring titration of levo until recovery. See flowsheet
--- NOTE | 2024-11-06 10:36 | W.PN.ID1 ---
Date of Service
Date of Service: November 06, 2024
Today's Communication
Continue Zosyn and clindamycin.
Assessment / Plan
#Right thigh acute necrotizing fasciitis
# Anaerobic bacteremia x 2 sets due to necrotizing fasciitis
# Septic shock due to necrotizing fasciitis, on 2 pressors
#Fever - resolved
# Leukocytosis improved
#JALEN worse requiring CRRT
# New onset atrial fibrillation with right ventricular mass/thrombus
- 11/03, 11/04 status post OR I&D and fasciotomy.
- Tissue cultures are pending
-Await identification of the Gram variable rods in blood cultures. Suspect clostridial species
- repeat blood cultures neg to date
-Continue Zosyn, adjust dose renally.
- Continue short course clindamycin 900 mg IV every 8 hours as toxin inhibitor (d3 of 3)
- white count, vitals
- Prognosis poor.
# Conditions [employer]
Diabetes mellitus
Neuropathy
Hypertension
Dyslipidemia
PE
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
Appendectomy
Chief Complaint
-: Other (Necrotizing fasciitis)
Subjective / Review of Systems
Remains on vent.
Vital Signs / Physical Exam
Vital Signs
Vital Signs
Temp Pulse Resp BP Pulse Ox
97.4 F 62 18 118/54 97
11/06/24 08:00 11/06/24 08:30 11/06/24 08:30 11/06/24 07:56 11/06/24 08:00
Physical Exam
Constitutional: Acutely Ill
Eyes: Sclera Anicteric
Cardiovascular: Regular Rate and S1/S2
Gastrointestinal: Soft, Tender, Distended and Non Distended
Genito-Urinary: Browne and Clear Urine
Extremities: Edema (Right lower extremity) and Cyanosis (mottled extremities)
Neurological: Other (Sedated)
Lines: Port (Right chest wall no erythema)
Objective Data
Lab Data
PT 19.3 Sec (11.4-14.6) H 11/03/24 23:54
INR 1.60 11/03/24 23:54
APTT 67.2 Sec (23.4-35.0) H 11/06/24 07:48
Estimated Creat Clear 36 ml/min 11/06/24 06:14
Lactic Acid 1.9 mmol/L (0.7-2.0) 11/05/24 05:58
Total Bilirubin 1.7 mg/dl (0.2-1.3) H 11/05/24 04:16
AST 263 U/L (17-59) H 11/05/24 04:16
ALT 118 U/L (0-50) H 11/05/24 04:16
Alkaline Phosphatase 57 U/L (38-126) 11/05/24 04:16
Amylase 39 U/L (30-110) 11/04/24 07:51
Most recent labs reviewed.
Micro Results:
11/03/24 21:57 Anaerobic Culture - Preliminary
Leg - Right Culture pending. Anaerobic cultures are examined after 3
days incubation. Additional information to follow.
11/03/24 21:57 Wound Culture - Preliminary
Leg - Right No growth
Gram Stain - Preliminary
11/03/24 15:44 Blood Culture - Preliminary
Blood/Venous Positive culture in progress
Gram Stain - Preliminary
11/05/24 05:58 Blood Culture - Preliminary
Blood/Venous No Growth in 24 hours- Final report to follow
11/05/24 04:16 Blood Culture - Preliminary
Blood/Venous No Growth in 24 hours- Final report to follow
11/03/24 15:44 Urine Culture - Final
Urine NO GROWTH
11/04/24 10:26 Tissue Culture - Preliminary
Leg - Right Gram Stain - Preliminary
11/03/24 15:44 Blood Culture - Preliminary
Blood/Venous Positive culture in progress
Gram Stain - Preliminary
11/03/24 23:54 Nasal Screen MRSA (PCR) - Final
Nose MRSA not detected - performed by PCR methodology.
11/06/24 CXR: Overall, stable radiographic appearance from most recent radiograph. Parenchymal opacity medial left lower lung, with main differential considerations of atelectasis and/or pneumonia. Linear atelectasis within the right lower lung
[2024-11-06 11:04] LABS: Glucose - Point of Care 76 mg/dl (70-99)
[2024-11-06] MEDS: D5/0.45%NACL 1000 IV ×2 (11:09→21:47)
[2024-11-06 11:40] LABS: B.E. -9.5 mmol/L; HCO3 17.1 mmol/L (21-28); O2 Saturation % 99.7 % (94-98); PCO2 39 mmHg (35-48); PO2 147 mmHg (83-108)
[2024-11-06] MEDS: SUBLIMAZE 100 MCG IV ×5 (11:59→23:27)
[2024-11-06 13:28] LABS: Glucose - Point of Care 86 mg/dl (70-99)
[2024-11-06 13:38] LABS: Albumin 2.4 g/dl (3.5-5.0); Alkaline Phosphatase 140 U/L (38-126); Total Protein 4.6 g/dl (6.3-8.2)
[2024-11-06 14:05] LABS: Hematocrit 36.5 % (39.0-52.0); Hemoglobin 12.1 g/dL (13.0-18.0); Mean Corp Hgb Conc. 33.2 g/dL (33.0-37.0); Mean Corpuscular Volume 94.8 fL (80.0-94.0); Platelet Count 108 10^3/uL (130-400); Red Cell Dist. Width 15.5 % (11.5-14.5)
--- NOTE | 2024-11-06 14:30 | PN.DE.MGMTRT ---
Insulin Management
- -
11/06/2024 Diabetes Management Consult Follow up
Patient admitted 11/03 with weakness, N & V, sepsis, new afib, necrotizing fasciitis R thigh. PMH HTN, HLD, diabetes, bladder CA, PE. Prior to admission was taking novolog ss AC with lantus 30 units @ HS. A1C on admission 7.3. Cr today 2.2, eGFR
29.91.
Patient is critically ill, POD 3 s/p surgery for r thigh necrotizing fasciitis. Currently intubated on ventilator.
Glycemic protocol insulin infusion stopped at 1pm 11/05. Glucose range 76 to 108 today. Ordered low corrective insulin Q 6 hours.
Discussed with nurse.
Will follow
Diabetes History
- -
Type of Diabetes: 2 requiring insulin
Pre-Admission Diabetes Regimen
11/05/24 11/06/24 11/06/24
18:48 00:35 06:14
Creatinine 2.8 H 2.6 H 2.2 H
Lab Results
Hemoglobin A1c 7.3 % (4.0-5.6) H 11/04/24 04:01
Insulin Pump Settings
IP Diabetes Regimen
11/05/24 11/05/24 11/05/24
15:04 15:29 16:31
Glucose
POC Glucose 64 L 88 67 L
11/05/24 11/05/24 11/05/24
16:57 18:09 18:48
Glucose 76
POC Glucose 99 84
11/05/24 11/05/24 11/05/24
20:14 20:51 22:21
Glucose
POC Glucose 57 L 92 76
11/05/24 11/05/24 11/06/24
23:10 23:37 00:35
Glucose 82
POC Glucose 66 L 95
11/06/24 11/06/24 11/06/24
02:15 04:18 04:50
Glucose
POC Glucose 85 61 L 96
11/06/24 11/06/24 11/06/24
06:14 07:40 08:04
Glucose 80
POC Glucose 68 L 108 H
11/06/24 11/06/24
10:53 13:17
Glucose
POC Glucose 76 86
Patient Education
[2024-11-06 14:58] VITALS: BP 51/37
[2024-11-06 14:59] VITALS: BP 51/37
--- NOTE | 2024-11-06 15:12 | PTCARENOTE ---
Dressing change performed by surgical team, wet to dry with saline, ABD pads and Yo wrap. Pt premedicated with fentanyl. Tolerated procedure. Levophed to kvo for <1min and BP to 50s/30s. HR to 40s. A-line requiring frequent flushing due to
dampening wave. Customer Advisor notified.
--- NOTE | 2024-11-06 15:15 | WOUNDNOTE ---
DOUG RN NOTE: Followed up with patient via nurse Ramires who reports surgery team changed dressing and will update wound care orders as requested. Nurse reports no new spread of Nec Fasc visible. Will update wound care instructions in care plan and
discharge, based on surgery orders. Will assist as needed.
[2024-11-06 15:16] LABS: ALT (SGPT) 3876 U/L (0-50); AST (SGOT) > 7500 U/L (17-59)
--- NOTE | 2024-11-06 15:21 | W.PN.UPDATE ---
Update Note
Progress Note Update
Pt seen together with residents. Remains intubated and sedated on levo and vaso. Wound examined, dressing changed. Healthy tissue in wound bed, no bleeding, no purulence, no drainage, no odor, no necrosis. Saine wet to dry kerlix packing placed, abd
pads, and yaron wrap. Continue daiy dressing changes, add dakins prn for odor. In the event of clinical improvement, would consider loose reapproximation of skin either in OR or at bedside, possible wound vac. GS will follow peripherally.
.
[2024-11-06 15:59] LABS: Blood Urea Nitrogen 37 mg/dl (9-20); Calcium 8.3 mg/dl (8.4-10.2); Carbon Dioxide 15 mmol/L (22-30); Chloride 106 mmol/L (98-107); Estimated Creatinine Clearance 34 ml/min; Glucose 97 mg/dl (70-99); Magnesium 2.8 mg/dl (1.6-2.3); Potassium 4.6 mmol/L (3.5-5.1); Sodium 135 mmol/L (135-145); eGFR 28.35
[2024-11-06 16:09] VITALS: BP 132/53
--- NOTE | 2024-11-06 16:23 | CM ---
Necrotic fascitis RLE, CRRT, ventilation, multiple IV medications. Discharge POC: TBD with medical progression.
[2024-11-06 16:43] LABS: APTT 89.7 Sec (23.4-35.0)
[2024-11-06 17:40] LABS: Glucose - Point of Care 92 mg/dl (70-99)
--- NOTE | 2024-11-06 20:00 | PTCARENOTE ---
on assessment pt intubated and sedated, restless and anxious at times, PHAM, pupils 2 PERRLA, generalized mottling noted, fingers and toes dusky and cool, SB/SR on the monitor, BBB and PVCs, electrolytes repleted per order see Silvia VALLE/CRUZ +1edema,
trace to BLLE, doppler pulses, #8 ETT 25 at the lip, AC 18/500/40/5, NPO with OGT to LIS, john in place for critical Is&Os, no urine output, pt continues on CRRT, large weeping and draining wound to R thigh FIELD TAX AUDITOR made aware, pt on FEN,DEX,HEP,IVF,LEVO
and VASO.
[2024-11-06 20:15] LABS: Hematocrit 29.3 % (39.0-52.0); Hemoglobin 9.6 g/dL (13.0-18.0); Mean Corp Hgb Conc. 32.8 g/dL (33.0-37.0); Mean Corpuscular Volume 93.9 fL (80.0-94.0); Platelet Count 86 10^3/uL (130-400); Red Cell Dist. Width 15.3 % (11.5-14.5)
[2024-11-06 20:24] LABS: Blood Urea Nitrogen 28 mg/dl (9-20); Calcium 6.0 mg/dl (8.4-10.2); Carbon Dioxide 14 mmol/L (22-30); Chloride 116 mmol/L (98-107); Estimated Creatinine Clearance 49 ml/min; Glucose 75 mg/dl (70-99); Magnesium 2.0 mg/dl (1.6-2.3); Potassium 3.0 mmol/L (3.5-5.1); Sodium 136 mmol/L (135-145); eGFR 43.83
[2024-11-06] MEDS: KCL 100 IV (20:34)
[2024-11-06 23:21] LABS: Glucose - Point of Care 81 mg/dl (70-99)
[2024-11-06 23:30] LABS: APTT 122.9 Sec (23.4-35.0)
--- NOTE | 2024-11-07 | PTCARENOTE ---
pt continued with serous and bloody drainage to R thigh dressing, MANAGER FREELANCE at bedside and assisted in dressing change, pt was medicated prior see JUN, pt does not tolerate movement well, BP low and restless in the bed, meds adjusted per order see JUN,
[2024-11-07] MEDS: LEVOPHED 258 MG IV ×7 (00:21→22:58)
[2024-11-07] MEDS: SUBLIMAZE 100 MCG IV ×3 (00:21→11:13)
[2024-11-07] MEDS: NEO-SYNEPHRINE 1% 260 MG IV ×3 (00:29→20:59)
[2024-11-07] MEDS: RFP-400 HD Soln (K+ 2 mEq/L) 15000 ML CRRT-IRR ×3 (01:29→19:19)
[2024-11-07] MEDS: CLEOCIN 50 IV ×2 (02:45→09:21)
[2024-11-07] MEDS: PRECEDEX 100 IV ×5 (02:52→23:05)
[2024-11-07 03:01] LABS: Hematocrit 34.4 % (39.0-52.0); Hemoglobin 11.6 g/dL (13.0-18.0); Mean Corp Hgb Conc. 33.7 g/dL (33.0-37.0); Mean Corpuscular Volume 92.2 fL (80.0-94.0); Platelet Count 108 10^3/uL (130-400); Red Cell Dist. Width 15.2 % (11.5-14.5)
[2024-11-07 03:33] LABS: Blood Urea Nitrogen 32 mg/dl (9-20); Calcium 8.6 mg/dl (8.4-10.2); Carbon Dioxide 19 mmol/L (22-30); Chloride 107 mmol/L (98-107); Estimated Creatinine Clearance 36 ml/min; Glucose 99 mg/dl (70-99); Magnesium 2.6 mg/dl (1.6-2.3); Potassium 4.5 mmol/L (3.5-5.1); Sodium 135 mmol/L (135-145); eGFR 29.91
--- NOTE | 2024-11-07 03:45 | PTCARENOTE ---
maxed on levo, continues with vaso and started on BUDDY per orders, see MAR, pt continues to have drainage from R thigh wound. pt went into AFIB after dressing change, AIR CONDITIONING TECHNICIAN aware, no new orders at this time
[2024-11-07] MEDS: SUBLIMAZE 100 IV ×3 (04:04→22:20)
[2024-11-07 04:36] LABS: Absolute Neutrophils -Man Diff 15.6 10^3/uL (1.4-6.5); Anisocytosis 1+; Normal RBC Morphology No; Platelets Checked Yes
[2024-11-07 04:37] LABS: Total Cells Counted 100
[2024-11-07 04:38] VITALS: BMI 31.5
[2024-11-07 04:40] LABS: B.E. -8.0 mmol/L; HCO3 18.9 mmol/L (21-28); O2 Saturation % 99.0 % (94-98); PCO2 43 mmHg (35-48); PO2 97 mmHg (83-108)
[2024-11-07 05:43] LABS: Glucose - Point of Care 93 mg/dl (70-99)
[2024-11-07 05:44] LABS: APTT 132.1 Sec (23.4-35.0)
[2024-11-07] MEDS: PITRESSIN 100 IV ×2 (05:55→16:32)
[2024-11-07] MEDS: ZOSYN 50 IV (05:59)
--- NOTE | 2024-11-07 07:42 | W.PN.INTV ---
Addendum entered and electronically signed by Micheal Amador MD 11/07/24 14:45:
Patient seen and examined independently by myself. Resident note reviewed below. Agree with assessment and plan.
Patient remains critically ill, requiring 3 pressors. Also continues to have peripheral cyanosis, no urine output. Oxygenation appears to be stable on volume cycle ventilation, FiO2 40%
Patient does open eyes at times. Remains on fentanyl, Precedex, heparin. Oozing from dressing noted
Continues to tolerate CRRT
Weight increased 11 kg. Airway pressures adequate, plateau pressure 13
Physical exam essentially unchanged
Peripheral cyanosis left upper extremity worse in right upper extremity. Right lower extremity bandage changed per surgery. Right IJ, left upper extremity A-line in place
Chest exam with decreased breath sounds, no crepitus
OG tube in place
Data reviewed
Elevated transaminases as of 11/06, creatinine 2.2
Lactate 3.6, CK decreasing to 4000
Hemoglobin stable at 11, platelets decreased to 84
A/P
Unfortunately, patient is not making any clinical progress. Now on 3 pressors.
Multisystem organ failure noted
Oozing from right lower extremity wound site noted, per surgery no active bleeding, site adequate
Based on clinical data, provided 500 cc bolus of normal saline, blood pressure improved
Reviewed with nephrology. Will provide additional bolus as needed, along with albumin per nephrology
Patient with transient atrial fibrillation and hypotension with movement. Remains on heparin
RV thrombus/lesion noted
Did briefly touch base with cardiology benefit of repeat echo, not indicated as it will not change person
Antibiotics switched to ampicillin/sulbactam
PTT 131, heparin held. Avoid boluses
Fibrinogen not decreased, not consistent with DIC
ABG reviewed. Continue with current ventilator, no changes
Unfortunately, given cardiomyopathy, RV dysfunction, RV thrombus, sepsis, renal failure, acute liver failure, prognosis extremely poor
Reviewed at length with family 11/06 and will review again 11/07
Reviewed with critical care nursing, respiratory care, pharmacy
Reviewed with nephrology, cardiology
TCCT 40 min
Original Note:
Today's Communication / Plan
Recommendations
Plan summary:
- Goals of care conversation
- Bolus 500 ccs NS for BP support
- Continue fluids and CRRT
- Recheck LFTs
Recommendations are not final until attending note/attestation
Assessment
-
In summary, 78 yo M with PMH n/f HTN, HLD, IDDM, PE, bladder cancer s/p TURBT p/w septic necrotizing fasciitis s/p debridement x2, with new RV thrombus, currently intubated, and receiving CRRT.
Yesterday afternoon, elevated LFTs to 7000s indicates ischemic hepatic injury, which suggests at that time, patient is volume depleted. He is undergoing CRRT and a fluid bolus is considered for BP support.
D5 1/2NS is appropriately supporting blood glucose, and continuing this fluid infusion may support blood pressure.
Elevated fibrinogen and stable Plt and stable Hgb reassure against DIC. elevated fibrinogen likely from acute phase reactant
A goals of care conversation with the family should be held.
Neuro
- Intubated
- sedated with precedex, fentanyl
CV
- norepinphrine, vasopressin, and phenylephrine
- NS bolus to wean pressor requirement
Respiratory
- Intubated, ventilator settingss
Assist/Control
- TV 500 mL
- RR 18
- FiO2 40%
- PEEP 5mmHg
- Peak pressure: 16 mmHg
GI:
- pantoprazole
- Recheck LFTs
- Consider trickle feeds, after goals of care discussion, surgery is okay with starting diet provided wound area can be kept clean
Renal:
- CRRT
- Bolus 500 cc NS for blood pressure support
- Continue D5 1/2NS to support both blood pressure and glucose.
- follow nephrology reccs
ID:
- abx regimen is now ampicillin/sulbactam
Endo:
- continue D5 1/2 NS for blood glucose support
Heme:
- hemoglobin stable despite bleeding through wound bandages
- heparin drip for the RV thrombus (held if PTT supratherapeutic)
Plan summary:
- Goals of care conversation
- Bolus 500 ccs NS for BP support
- Continue fluids and CRRT
- Recheck LFTs
Recommendations are not final until attending note/attestation
Subjective Dataa
Subjective Data
Date of Service:
Date of Service: November 07, 2024
Subjective:
78 yo M with PMH n/f HTN, HLD, IDDM, PE, bladder cancer s/p TURBT p/w septic necrotizing fasciitis s/p debridement x2, with new RV thrombus, currently intubated and receiving CRRT.
Interim/overnight events notable for bleeding through the wound packing, and atrial fibrillation on the monitor.
Review of Systems
General: Unobtainable - Sedation
Objective Data
Data Reviewed
Vital Signs / I&O / Oxygen:
Vital Signs
Temp Pulse Resp BP Pulse Ox
97.4 F 86 18 132/53 92
11/07/24 03:46 11/07/24 06:00 11/07/24 06:00 11/06/24 16:09 11/07/24 03:56
Intake and Output
11/06/24 11/07/24 11/08/24
06:59 06:59 06:59
Intake Total 3631.3 / 3779.8 4679.8 / 4890.4 210.6 / 210.6
Output Total 3494.2 / 3494.2 4014 / 4210 196 / 196
Balance 137.1 / 285.6 665.8 / 680.4 14.6 / 14.6
SaO2 [A/C] 95
SaO2 92
Nasal Cannula flow liters per 6
minute
Physical Exam
General: Other (intubated/sedated)
Cardiovascular: Regular Rhythm and Other (no murmurs)
Respiratory: ET Tube
GI: Other (OG tube)
Neurology: Other (sedated)
Skin: Other (mottling of fingertips/toes; bandages on right thigh)
Labs/Micro/Reports
Laboratory Results
11/06/24 11/06/24 11/06/24
07:48 11:23 16:20
APTT 67.2 H 89.7 H
pH 7.25 L
pCO2 39
pO2 147 H
HCO3 17.1 L
O2 Delivery Level
11/06/24 11/07/24 11/07/24
23:11 04:32 05:21
APTT 122.9 H 132.1 H
pH 7.25 L
pCO2 43
pO2 97
HCO3 18.9 L
O2 Delivery Level
WBC 17.3 from 12.4 day prior
Hgb 11.0
Plt 106
NA+ 135
K+ 4.3
BUN 29
Cr 1.9
Ca2+ 8.6
Albumin 2.4
CK 4044
APTT 132
Fibrinogen 644
ABG ph 7.25, pCO2 43, pO2 97
Blood glucose 80s - 90s
Microbiology
Wound culture grew Coagulase negative staph
Blood cultures: no growth to date
11/05/24 05:58 Blood/Venous Blood Culture - Preliminary
No Growth in 48 hours- Final report to follow
11/05/24 04:16 Blood/Venous Blood Culture - Preliminary
No Growth in 48 hours- Final report to follow
11/04/24 10:26 Leg - Right Tissue Culture - Preliminary
Coagulase neg. staphylococcus
11/04/24 10:26 Leg - Right Gram Stain - Preliminary
11/03/24 15:44 Blood/Venous Blood Culture - Preliminary
Clostridium clostridioforme
11/03/24 15:44 Blood/Venous Gram Stain - Preliminary
11/03/24 15:44 Blood/Venous Blood Culture - Preliminary
Clostridium clostridioforme
11/03/24 15:44 Blood/Venous Gram Stain - Preliminary
11/03/24 21:57 Leg - Right Anaerobic Culture - Preliminary
Culture pending. Anaerobic cultures are examined after 3
days incubation. Additional information to follow.
11/03/24 21:57 Leg - Right Wound Culture - Preliminary
No growth
11/03/24 21:57 Leg - Right Gram Stain - Preliminary
11/03/24 15:44 Urine Urine Culture - Final
NO GROWTH
11/03/24 23:54 Nose Nasal Screen MRSA (PCR) - Final
MRSA not detected - performed by PCR methodology.
--- NOTE | 2024-11-07 08:00 | PTCARENOTE ---
Received pt with eyes open.Follows commands intermittently.+PHAM noted.A Fib noted.Right IJ TLC intact with IVF,Levophed,Phenylephrine,Vasopressin,Heparin,Precedex and Fentanyl gtts.Right SQ port intact.Left radial A line intact,zeroed and maintained
at mid axillary level.BL hand dusky with cyanotic fingertips noted.#8 ETT to vent.Decreased breath sounds throughout.POX 97%OGT intact.No BM.Aneuric.CRRT is ongoing as ordered.Right leg incision draining copious amount serosanguineous.Lexi Henry
and Fiorella made aware.Plan of care discussed with pt.
--- NOTE | 2024-11-07 08:33 | W.PN.CARDCBS ---
Today's Communication / Plan
-
Prognosis poor
Reconsideration of goals of care level of care underway
Comfort level care seems appropriate
We will sign off, please call if questions
Impression / Plan
-
Primary Rnp: none prior to admission
Assessment:
Presentation with generalized malaise, N/V, fevers
R thigh necrotizing fasciitis s/p I&D 11/03 and 11/04/24
Septic shock
Gram neg bacteremia
VDRF, intubated
JALEN, low urine output
Elevated CPK
PAF, new diagnosis, brief episode on admission without clear recurrence
PACs
Cardiomyopathy, EF 30-35%
Large echodensity in RV apex, concern for thrombus vs mass
IDDM
Peripheral neuropathy
HTN
HLD
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
History of PE, prior eliquis
ECHO 11/04/2024: EF 30 to 35%, grade 1 diastolic dysfunction, enlarged RV with reduced RV systolic function, large echodensity in RV apex near moderator band, suspicious for thrombus versus mass, IVC and hepatic veins dilated, MAC, trace MR, PAP 30 to
35 mmHg, pleural effusion present
Plan:
Patient currently on multiple pressors, intubated, on CRRT, with underlying malignancy.
Prognosis is poor.
Bias Machine Operator Helper plans to discuss goals of care/level of care
In my opinion comfort measures would be appropriate
We will sign off, please call if questions.
Progress Note - Rnp
Subjective
Date of Service: November 07, 2024:
78-year-old man admitted with septic shock, gram-negative bacteremia, necrotizing fasciitis, vent dependent respiratory failure, JALEN requiring CRRT, right ventricular apical mass, PAF, found to have EF of 30 to 35%, all with underlying urachal
adenocarcinoma of the bladder with recurrent bladder tumor 2023 treated with chemotherapy.
PMH as above, plus pulmonary embolus
Current meds: Zosyn, Cleocin, Pitressin, norepinephrine, Precedex, phenylephrine, IV heparin
132/53, pulse 86, resprate 18, afebrile, sats 92%, weight is 108.3 kg, up 1.2 kg, poorly responsive small pupils on ventilator, lung exam difficult but largely clear,, not much edema
Hemoglobin 11.6, platelets 108, white count 16.7, BUN/creatinine 32 and 2.2, creatinine had been 2.3 and 1.6, bicarb 19
Objective
Labs:
Labs
Hgb Cancelled 11/07/24 06:00
Hct Cancelled 11/07/24 06:00
Plt Count Cancelled 11/07/24 06:00
PT 19.3 Sec (11.4-14.6) H 11/03/24 23:54
INR 1.60 11/03/24 23:54
APTT 132.1 Sec (23.4-35.0) H 11/07/24 05:21
Sodium Cancelled 11/07/24 06:00
Potassium Cancelled 11/07/24 06:00
BUN Cancelled 11/07/24 06:00
Creatinine Cancelled 11/07/24 06:00
Glucose Cancelled 11/07/24 06:00
Vital Signs and I&O:
Vital Signs
Temp Pulse Resp BP Pulse Ox
36.3 C 86 18 132/53 92
11/07/24 03:46 11/07/24 06:00 11/07/24 06:00 11/06/24 16:09 11/07/24 03:56
Vital Signs
Temp Pulse Resp BP Pulse Ox
36.3 C 86 18 132/53 92
11/07/24 03:46 11/07/24 06:00 11/07/24 06:00 11/06/24 16:09 11/07/24 03:56
Intake & Output
11/05/24 11/06/24 11/07/24 11/08/24
07:59 07:59 07:59 07:59
Intake Total 5557.7 / 5751.4 3386.1 / 3467.8 4741.9 / 4741.9
Output Total 186 / 194 3494.2 / 3494.2 4210 / 4210
Balance 5371.7 / 5557.4 -108.1 / -26.4 531.9 / 531.9
Physical Exam
Physical Exam
See above
--- NOTE | 2024-11-07 08:47 | W.PN.HOSP.TC ---
Today's Communication/Plan
-
c/w supportive care
IV abx.
Renewed heparin gtt and pressure support/ sedatives
Appreciate ICU doctor/ staff and consultants help
Assessment / Plan
Assessment / Plan
Physical Exam
General: Other (Intubated and sedated . Port in anterior chest wall, right jugular central line )
HEENT: Atraumatic and Other (ET tube )
Respiratory: Decreased Breath Sounds
Cardiac: S1/S2
GI: Soft and Nontender, distended but soft ( hernia)
Genito-urinary: Browne; Negative Bloody Urine
Musculoskeletal: peripheral mottling, right thing dressing with sanguineous discharge.
Neuro: Other (Sedated )
Psych: Other (sedated
78 male presented with severe sepsis/ septic shock.
#Right thigh acute necrotizing fasciitis
# Clostridium Clostridioforme bacteremia x 2 sets due to necrotizing fasciitis
#Severe sepsis with lactic acidosis
# Septic shock
c/w broad spectrum IV ABx
No fevers, WBC is elevated
Remains on pressure support medications with ongoing hemodialysis
Wound care per surgery.
Appreciate surgery, ID and ICU doctors help
# Clostridium Clostridioforme bacteremia
Blood culture 11/05 is no growth
c/w IV ABx
# Acute hypoxic ventilatory dependent respiratory failure post op
Decreasing FiO2 and Peep so far, ABG noted with metabolic acidosis. c/w to be on elevated RR to help with acidosis.
Remained intubated post surgery 11/03 and 11/04
CXR was reviewed.
Appreciate pulmonary/ICU help
#JALNE with oligoric output with metabolic acidosis
He was taking Advil and on lisinopril prior to presentation
Likely ATN due to sepsis
Hyperkalemia, s/p Lokelma
Started CRRT 11/05
s/p insulin gtt, now on SQ insulin Q 6 hours checks.
s/p volume replacement. Browne catheter
Maintain good volume and blood pressure status
Appreciate nephrology & ICU help
# Acute systolic heart failure, echo showed LVEF 30 to 35%. Continue pressure support. Echo also showed echodensity in the right ventricle, suspicious for thrombus. Started on IV heparin.
Monitor PTT
Patient has history of PE and was on Eliquis in the past.
# Elevated CPK due to non traumatic rhabdomyolysis from muscle injury/ infection
# Hypocalcemia, replaced
# Hypokalemia, replaced.
# Sinus tachycardia, reactive, better today
# IDDM
s/p insulin IV protocol , now on Q 6 insulin sliding scale.
# DVT prophylaxis, on IV Heparin gtt, GI prophylaxis
# Prognosis remains guarded. Code status DNR.
Total time spent to see the patient, examine the patient, review data and lab result, discuss treatment plan with consultants, nursing staff around 55 minutes
Anticipated Discharge: > 48 hours
Subjective/Interval History
-
Date of Service: November 07, 2024
Still on CRRT and pressure support
Objective Data
-
Labs:
Laboratory Results
11/06/24 11/07/24 11/07/24
23:11 02:44 04:32
WBC 16.7 H
Hgb 11.6 L D
Hct 34.4 L
Plt Count 108 L D
APTT 122.9 H
HCO3 18.9 L
Sodium 135
Potassium 4.5 D
Chloride 107
Carbon Dioxide 19 L
BUN 32 H
Creatinine 2.2 H
Glucose 99
Calcium 8.6 D
11/07/24 11/07/24 11/07/24
05:21 06:00 08:18
WBC Cancelled Pending
Hgb Cancelled Pending
Hct Cancelled Pending
Plt Count Cancelled Pending
APTT 132.1 H
HCO3
Sodium Cancelled Pending
Potassium Cancelled Pending
Chloride Cancelled Pending
Carbon Dioxide Cancelled Pending
BUN Cancelled Pending
Creatinine Cancelled Pending
Glucose Cancelled Pending
Calcium Cancelled Pending
11/07/24
08:29
WBC
Hgb Pending
Hct Pending
Plt Count
APTT
HCO3
Sodium
Potassium
Chloride
Carbon Dioxide
BUN
Creatinine
Glucose
Calcium
Vital Signs:
Vital Signs
Temp Pulse Resp BP Pulse Ox
97.4 F 86 18 132/53 92
11/07/24 03:46 11/07/24 06:00 11/07/24 06:00 11/06/24 16:09 11/07/24 03:56
I&O
11/06/24 11/07/24 11/08/24
06:59 06:59 06:59
Intake Total 3631.3 / 3779.8 4679.8 / 4890.4 210.6 / 210.6
Output Total 3494.2 / 3494.2 4014 / 4210 196 / 196
Balance 137.1 / 285.6 665.8 / 680.4 14.6 / 14.6
--- NOTE | 2024-11-07 08:58 | PN.DE.MGMTRT ---
Insulin Management
- -
11/07/2024 Diabetes Management Consult Follow up
Patient admitted 11/03 with weakness, N & V, sepsis, new afib, necrotizing fasciitis R thigh. PMH HTN, HLD, diabetes, bladder CA, PE. Prior to admission was taking novolog ss AC with lantus 30 units @ HS. A1C on admission 7.3. Cr today 2.2, eGFR
29.91.
Patient is critically ill, POD 4 s/p surgery for r thigh necrotizing fasciitis. Currently intubated on ventilator.
Glycemic protocol insulin infusion stopped at 1pm 11/05. Glucose range 75 to 108 yesterday. Ordered low corrective insulin Q 6 hours. Required no insulin
Discussed with nurse.
Will follow
Diabetes History
- -
Type of Diabetes: 2 requiring insulin
Pre-Admission Diabetes Regimen
11/06/24 11/06/24 11/07/24
13:56 19:56 02:44
Creatinine 2.3 H 1.6 H 2.2 H
11/07/24
06:00
Creatinine Cancelled
Lab Results
Hemoglobin A1c 7.3 % (4.0-5.6) H 11/04/24 04:01
Insulin Pump Settings
IP Diabetes Regimen
11/06/24 11/06/24 11/06/24
10:53 13:17 13:56
Glucose 97
POC Glucose 76 86
11/06/24 11/06/24 11/06/24
17:29 19:56 23:10
Glucose 75
POC Glucose 92 81
11/07/24 11/07/24 11/07/24
02:44 05:32 06:00
Glucose 99 Cancelled
POC Glucose 93
Patient Education
[2024-11-07 09:12] LABS: Hematocrit 32.7 % (39.0-52.0); Hemoglobin 11.0 g/dL (13.0-18.0); Mean Corp Hgb Conc. 33.6 g/dL (33.0-37.0); Mean Corpuscular Volume 92.4 fL (80.0-94.0); Red Cell Dist. Width 15.4 % (11.5-14.5)
[2024-11-07 09:15] LABS: Platelet Count 106 10^3/uL (130-400)
[2024-11-07 09:20] VITALS: BP 88/43
[2024-11-07] MEDS: NSS (PRESERVATIVE FREE) 10 ML IV (09:21)
[2024-11-07] MEDS: PROTONIX IV 40 MG IV (09:21)
[2024-11-07] MEDS: DAKIN'S SOLUTION 0.25% 1/2 STRENGTH 20 ML TOPICAL (09:22)
[2024-11-07 09:30] VITALS: BP 82/42; BP 85/32
--- NOTE | 2024-11-07 09:34 | W.PN.ID1 ---
Date of Service
Date of Service: November 07, 2024
Today's Communication
Narrow Zosyn to Unasyn.
Assessment / Plan
#Right thigh acute necrotizing fasciitis
# Clostridium clostridioforme bacteremia x 2 sets due to necrotizing fasciitis
# Septic shock due to necrotizing fasciitis, remains on 2 pressors
#Fever - resolved
# Leukocytosis
#JALEN worse requiring CRRT
# New onset atrial fibrillation with right ventricular mass/thrombus
- 11/03, 11/04 status post OR I&D and fasciotomy.
- Tissue cultures: staph epi (skin contaminant)
- Repeat blood cultures neg to date
- Completed 3d clinda 900mg IV q8 as toxin inhibitor
- Narrow Zosyn to Unasyn, adjusted for CRRT.
- Continue ICU support.
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
Diabetes mellitus
Neuropathy
Hypertension
Dyslipidemia
PE
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
Appendectomy
Chief Complaint
-: Other (Necrotizing fasciitis)
Subjective / Review of Systems
Awake on vent.
Vital Signs / Physical Exam
Vital Signs
Vital Signs
Temp Pulse Resp BP Pulse Ox
97.4 F 86 18 132/53 92
11/07/24 03:46 11/07/24 06:00 11/07/24 06:00 11/06/24 16:09 11/07/24 03:56
Physical Exam
Constitutional: Acutely Ill
Eyes: Sclera Anicteric
Cardiovascular: Regular Rate and S1/S2
Gastrointestinal: Soft, Tender, Distended and Non Distended
Genito-Urinary: Browne and Clear Urine
Extremities: Edema (Right lower extremity) and Cyanosis (mottled extremities)
Wound: Other (Reviewed wound photos: Right medial thigh large open wound with exposed muscles, clean without necrosis)
Neurological: Other (Sedated)
Lines: Port (Right chest wall no erythema)
Objective Data
Lab Data
PT 19.3 Sec (11.4-14.6) H 11/03/24 23:54
INR 1.60 11/03/24 23:54
APTT 132.1 Sec (23.4-35.0) H 11/07/24 05:21
Estimated Creat Clear Cancelled 11/07/24 06:00
Lactic Acid 3.6 mmol/L (0.7-2.0) H 11/06/24 16:20
Total Bilirubin 2.8 mg/dl (0.2-1.3) H D 11/06/24 11:24
AST > 7500 U/L (17-59) H* 11/06/24 11:24
ALT 3876 U/L (0-50) H* 11/06/24 11:24
Alkaline Phosphatase 140 U/L (38-126) H 11/06/24 11:24
Amylase 39 U/L (30-110) 11/04/24 07:51
Most recent labs reviewed.
Micro Results:
11/05/24 05:58 Blood Culture - Preliminary
Blood/Venous No Growth in 48 hours- Final report to follow
11/05/24 04:16 Blood Culture - Preliminary
Blood/Venous No Growth in 48 hours- Final report to follow
11/04/24 10:26 Tissue Culture - Preliminary
Leg - Right Coagulase neg. staphylococcus
Gram Stain - Preliminary
11/03/24 15:44 Blood Culture - Preliminary
Blood/Venous Clostridium clostridioforme
Gram Stain - Preliminary
11/03/24 15:44 Blood Culture - Preliminary
Blood/Venous Clostridium clostridioforme
Gram Stain - Preliminary
11/03/24 21:57 Anaerobic Culture - Preliminary
Leg - Right Culture pending. Anaerobic cultures are examined after 3
days incubation. Additional information to follow.
11/03/24 21:57 Wound Culture - Preliminary
Leg - Right No growth
Gram Stain - Preliminary
11/03/24 15:44 Urine Culture - Final
Urine NO GROWTH
11/03/24 23:54 Nasal Screen MRSA (PCR) - Final
Nose MRSA not detected - performed by PCR methodology.
11/06/24 CXR: Overall, stable radiographic appearance from most recent radiograph. Parenchymal opacity medial left lower lung, with main differential considerations of atelectasis and/or pneumonia. Linear atelectasis within the right lower lung
Care Review
Plan reviewed with: Other (Pharmacist Alfonzo)
[2024-11-07] MEDS: CALCIUM GLUCONATE 130 MG IV ×3 (09:43→22:02)
[2024-11-07 09:54] LABS: Blood Urea Nitrogen 29 mg/dl (9-20); Calcium 7.6 mg/dl (8.4-10.2); Carbon Dioxide 17 mmol/L (22-30); Chloride 109 mmol/L (98-107); Estimated Creatinine Clearance 41 ml/min; Glucose 87 mg/dl (70-99); Magnesium 2.4 mg/dl (1.6-2.3); Potassium 4.3 mmol/L (3.5-5.1); Sodium 135 mmol/L (135-145); eGFR 35.66
[2024-11-07] MEDS: NSS 500 IV (10:00)
--- NOTE | 2024-11-07 10:18 | W.PN.NEPH.PH ---
Today's Communication / Plan
-
CRRT
Assessment/Plan
-
IMP:
Severe sepsis
Necrotizing fascitis of right leg s/p debridement
Rhabdomyolysis
JALEN
L acidosis
New onset AF
RV thrombus
EF 30-35%
elevated LFTs
VDRF
HX IDDM
Benign HTN
HLD
HX PE
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
PORT at Rt Chest
h/o K stone
Plan:
CRRT continues
follow BMP
CPK improving
IVF bolus
IV albumin
may continue D5NS for hypoglycemia
on heparin gtt for RV thrombus
maintain john
abx for fasciitis
prognosis poor
critical care time 33 minutes
-
-
Date of Service: November 07, 2024
CC / HPI / ROS
-
Chief Complaint:
JALEN
History of Present Illness:
JALEN/Cr 1.9 on CRRT
critically ill in ICU on vent/pressors, third pressor overnight
intubated sedated
K normal
mild acidosis persists
bleeding from right inner thigh
Review of Systems:
remains intubated, sedated
Labs
-
Labs:
WBC 17.3 10^3/uL (4.8-10.8) H 11/07/24 08:18
RBC 3.54 10^6/uL (4.70-6.10) L 11/07/24 08:18
Plt Count 106 10^3/uL (130-400) L 11/07/24 08:18
Sodium 135 mmol/L (135-145) 11/07/24 08:18
Potassium 4.3 mmol/L (3.5-5.1) 11/07/24 08:18
Chloride 109 mmol/L (98-107) H 11/07/24 08:18
Carbon Dioxide 17 mmol/L (22-30) L 11/07/24 08:18
BUN 29 mg/dl (9-20) H 11/07/24 08:18
Creatinine 1.9 mg/dL (0.7-1.3) H 11/07/24 08:18
eGFR 35.66 11/07/24 08:18
Glucose 87 mg/dl (70-99) 11/07/24 08:18
Calcium 7.6 mg/dl (8.4-10.2) L 11/07/24 08:18
Phosphorus 4.4 mg/dl (2.5-4.5) 11/07/24 08:18
Albumin 2.4 g/dl (3.5-5.0) L 11/06/24 11:24
Physical Exam
-
Vital Signs:
Vital Signs
Temp Pulse Resp BP Pulse Ox
97.4 F 86 18 132/53 92
11/07/24 03:46 11/07/24 06:00 11/07/24 06:00 11/06/24 16:09 11/07/24 03:56
Cardiovascular:: Regular rate and rhythm
Respiratory:: Bilateral: Coarse
Lung Excursion:: Normal
Abdomen:: Nontender and Soft
Bowel Sounds:: None
Extremity Edema:: +3: Bilateral:
Other Findings::
dusky extremities
--- NOTE | 2024-11-07 10:20 | W.PN.UPDATE ---
Update Note
Progress Note Update
CRRT in progress. no issues with heparin gtt.
2K, even UF. Qb 200-300.
continue CRRT as is
BP low on pressors, intubated/sedated
HD CVC intact
[2024-11-07] MEDS: D5/0.45%NACL 1000 IV (10:30)
[2024-11-07 10:41] LABS: Fibrinogen 644 MG/DL (199-459)
--- NOTE | 2024-11-07 11:34 | W.PN.SURGUPD ---
Surgical Update
Surgical Update
Called to see patient to evaluate right lower extremity wound.
Nursing at bedside to assist with dressing change.
Old blood and clot saturating dressing.
Dressings fully taken down.
There are patchy areas of skin cyanosis but no milka necrosis.
Exposed muscle and fascia also appears generally viable with mild cyanosis but no necrosis.
No purulence, no malodor
No significant oozing nor active bleeding identified on thorough evaluation of wound bed.
Open soft tissue wounds repacked with dry Kerlix, covered with ABD and wrapped with an Yo for compression.
There will likely be ongoing oozing from the raw surface areas due to extensiveness of wounds and need for therapeutic anticoagulation.
Continue local wound care
No further aggressive debridements appear to be indicated at current time
Further care per [employer] and medical specialties
Continue to be available for assistance with wound care management and assessment.
[2024-11-07] MEDS: HEPARIN 25000 UNITS/250 ML IV (11:41)
[2024-11-07] MEDS: FLEXBUMIN 100 IV ×2 (11:50→18:59)
[2024-11-07] MEDS: REFRESH CELLUVISC GEL 1 DROPS OPHTH (11:52)
--- NOTE | 2024-11-07 12:00 | PTCARENOTE ---
MAP below 65.Lexi Henry and Cinda made aware. NSS fluid bolus and Albumin administered as ordered.Rectal temperature 94.5.Gwendolyn hugger applied as ordered.BL eyes are dry and irritated.Refresh eye drops applied as ordered.
[2024-11-07] MEDS: UNASYN IV ×2 (12:41→20:59)
[2024-11-07 12:58] LABS: Glucose - Point of Care 76 mg/dl (70-99)
[2024-11-07 14:07] LABS: APTT 131.4 Sec (23.4-35.0)
[2024-11-07 14:13] LABS: Hematocrit 30.4 % (39.0-52.0); Hemoglobin 9.9 g/dL (13.0-18.0); Mean Corp Hgb Conc. 32.5 g/dL (33.0-37.0); Mean Corpuscular Volume 95.9 fL (80.0-94.0); Platelet Count 84 10^3/uL (130-400); Red Cell Dist. Width 15.4 % (11.5-14.5)
[2024-11-07 14:47] LABS: Blood Urea Nitrogen 26 mg/dl (9-20); Calcium 8.4 mg/dl (8.4-10.2); Carbon Dioxide 12 mmol/L (22-30); Chloride 107 mmol/L (98-107); Estimated Creatinine Clearance 37 ml/min; Glucose 70 mg/dl (70-99); Magnesium 2.5 mg/dl (1.6-2.3); Potassium 4.6 mmol/L (3.5-5.1); Sodium 134 mmol/L (135-145); eGFR 31.63
[2024-11-07] MEDS: SODIUM BICARBONATE 1150 MEQ IV (15:50)
--- NOTE | 2024-11-07 16:13 | CM ---
Remains poor prognosis, new A-Fib with R ventricle mass/thrombus,CRRT, R thigh necrotizing fasciitis. Discharge POC: TBD based on medical progression.
--- NOTE | 2024-11-07 16:50 | W.PN.UPDATE ---
Update Note
Progress Note Update
Had extensive discussion with and daughter at bedside. Also updated son following discussion by phone.
Reviewed clinical course to date
Reviewed significant setback in the last 24 hours which includes acute liver failure, worsening thrombocytopenia, worsening hypotension now requiring 3 pressors
Family asked appropriate questions with regards to chances for recovery, process of dying when withdrawal of care is pursued
Reviewed process at length
After extensive discussion, would like to continue with supportive care as we are currently doing
We will start trickle feeds, this was reviewed with surgery earlier today. Will need to be aware of bowel movements in the setting of wound near the rectum.
Will use appropriate shield and fecal management system as needed
Will continue with fluid boluses and albumin per discussion with nephrology
Will continue with fentanyl for pain
If there are any significant setbacks in the next 24 to 48 hours, or family decides to withdraw care we will move in that direction and focus on comfort
Reviewed with critical care nursing
All questions answered
TCCT 36 min
[2024-11-07] MEDS: DEXTROSE 50% SYRINGE 12.5 GRAMS IV ×2 (18:28→18:30)
--- NOTE | 2024-11-07 18:46 | PTCARENOTE ---
Blood glucose 26,retested then 29.25 gm Dextrose given as per POWERHOUSE MECHANIC SUPERVISOR.
[2024-11-07 19:13] LABS: Glucose - Point of Care 64 mg/dl (70-99)
[2024-11-07] MEDS: DEXTROSE 50% SYRINGE 25 GRAMS IV (19:56)
[2024-11-07 20:04] LABS: Glucose - Point of Care 142 mg/dl (70-99)
[2024-11-07 21:02] LABS: Glucose - Point of Care 99 mg/dl (70-99)
[2024-11-07 21:28] LABS: APTT 130.3 Sec (23.4-35.0)
[2024-11-07 21:29] LABS: Hematocrit 20.3 % (39.0-52.0); Hemoglobin 6.5 g/dL (13.0-18.0); Mean Corp Hgb Conc. 32.0 g/dL (33.0-37.0); Mean Corpuscular Volume 97.1 fL (80.0-94.0); Platelet Count 128 10^3/uL (130-400); Red Cell Dist. Width 15.7 % (11.5-14.5)
--- NOTE | 2024-11-07 21:37 | PTCARENOTE ---
on assessment pt intubated and sedated, restless and anxious at times, PHAM, pupils 2 PERRLA, generalized mottling noted, fingers and toes dusky and cool, AFIB on the monitor, electrolytes repleted per order see Silvia VALLE/CRUZ +2edema, +1 to BLLE,
doppler pulses, #8 ETT 25 at the lip, AC 18/500/40/5, NPO with OGT to LIS, john in place for critical Is&Os, no urine output, pt continues on CRRT, large weeping and draining wound to R thigh MATCH MAKER made aware, FMS placed and trick feeds due to start,
pt on FEN,DEX,HEP,IVF,LEVO, BUDDY and VASO. blood sugars trending down MATCH MAKER aware and meds given see MAR
[2024-11-07 21:49] LABS: Blood Urea Nitrogen 22 mg/dl (9-20); Calcium 8.2 mg/dl (8.4-10.2); Carbon Dioxide 9 mmol/L (22-30); Chloride 104 mmol/L (98-107); Estimated Creatinine Clearance 36 ml/min; Glucose 100 mg/dl (70-99); Magnesium 2.7 mg/dl (1.6-2.3); Potassium 5.2 mmol/L (3.5-5.1); Sodium 134 mmol/L (135-145); eGFR 29.91
--- NOTE | 2024-11-07 22:03 | W.PN.UPDATE ---
Update Note
Progress Note Update
2200 Hgb dropped significantly 6.5, ordered 1x u PRBC and type and screen. Discussed case with Dr. Amador, will stop heparin gtt due to drop in hgb and bleeding. Patient is more hypotensive (3x vasopressors) levophed, darnell, and vaso gtts. Patient
has also been hypoglycemic, treated with push amp of dextrose and increased bicarb d5 gtt to 100cc/hr. Called patient's Alis, daughter was also present on the phone, reviewed events and gave updates, answered all questions. Overall prognosis
is poor and family will probably move to comfort measures tomorrow. Family agreed to blood transfusion, consent was already on surgery consent, family agreed that no further interventions and would speak to dayteam about plan of care.
[2024-11-07 22:10] LABS: Glucose - Point of Care 78 mg/dl (70-99)
--- NOTE | 2024-11-07 22:32 | PTCARENOTE ---
PTT resulted, SLEEP SCIENTIST made aware, Hep gtt stopped per MD, PRBC ordered, SLEEP SCIENTIST called to update family
--- NOTE | 2024-11-07 22:34 | PTCARENOTE ---
hold trick feeds at this time per INSERTER
[2024-11-07 23:04] LABS: Glucose - Point of Care 84 mg/dl (70-99)
[2024-11-07 23:27] VITALS: BP 141/38
[2024-11-07 23:45] VITALS: BP 130/36
[2024-11-08] VITALS (15 sets, daily range): BP systolic 74–127; BP diastolic 36–57; BMI 32.0
[2024-11-08] MEDS: DEXTROSE 50% SYRINGE 25 GRAMS IV (01:48)
[2024-11-08 01:55] LABS: Glucose - Point of Care 51 mg/dl (70-99)
[2024-11-08 02:15] LABS: Glucose - Point of Care 150 mg/dl (70-99)
[2024-11-08] MEDS: SODIUM BICARBONATE 1150 MEQ IV (02:44)
[2024-11-08] MEDS: FLEXBUMIN 100 IV (02:46)
[2024-11-08] MEDS: LEVOPHED 258 MG IV ×3 (02:47→12:26)
[2024-11-08] MEDS: NEO-SYNEPHRINE 1% 260 MG IV ×2 (02:47→09:00)
[2024-11-08] MEDS: PITRESSIN 100 IV (03:01)
[2024-11-08] MEDS: PRECEDEX 100 IV ×2 (03:02→07:50)
[2024-11-08] MEDS: UNASYN IV (03:07)
[2024-11-08 03:19] LABS: B.E. -18.2 mmol/L; O2 Saturation % 98.5 % (94-98); PCO2 38 mmHg (35-48); PO2 92 mmHg (83-108)
[2024-11-08 03:23] LABS: Hematocrit 29.7 % (39.0-52.0); Hemoglobin 9.6 g/dL (13.0-18.0); Mean Corp Hgb Conc. 32.3 g/dL (33.0-37.0); Mean Corpuscular Volume 96.4 fL (80.0-94.0); Platelet Count 97 10^3/uL (130-400); Red Cell Dist. Width 15.6 % (11.5-14.5)
[2024-11-08] MEDS: RFP-400 HD Soln (K+ 2 mEq/L) 15000 ML CRRT-IRR (03:23)
[2024-11-08 03:25] LABS: HCO3 11.0 mmol/L (21-28)
[2024-11-08 03:42] LABS: Albumin 2.3 g/dl (3.5-5.0); Alkaline Phosphatase 404 U/L (38-126); Total Protein 4.1 g/dl (6.3-8.2)
[2024-11-08] MEDS: CALCIUM GLUCONATE 130 MG IV (04:06)
[2024-11-08 04:13] LABS: Blood Urea Nitrogen 20 mg/dl (9-20); Calcium 8.2 mg/dl (8.4-10.2); Carbon Dioxide 9 mmol/L (22-30); Chloride 105 mmol/L (98-107); Estimated Creatinine Clearance 37 ml/min; Glucose 97 mg/dl (70-99); Magnesium 2.5 mg/dl (1.6-2.3); Potassium 5.2 mmol/L (3.5-5.1); Sodium 133 mmol/L (135-145); eGFR 31.63
[2024-11-08 04:14] LABS: ALT (SGPT) 3088 U/L (0-50); AST (SGOT) 7341 U/L (17-59)
--- NOTE | 2024-11-08 04:25 | PTCARENOTE ---
ABD more distended, increased mottling to whole body, 0300 labs resulted, DELI BAKERY CLERK made aware
[2024-11-08] MEDS: DEXTROSE 50% SYRINGE 12.5 GRAMS IV ×2 (06:16→09:50)
[2024-11-08 06:25] LABS: Glucose - Point of Care 47 mg/dl (70-99)
--- NOTE | 2024-11-08 07:37 | PN.DE.MGMTRT ---
Insulin Management
- -
11/08/2024: Diabetes Management Follow up
Patient admitted 11/03 with weakness, N & V, Sepsis, New A-Ffib, necrotizing fasciitis R thigh.
PMH: HTN, HLD, diabetes, bladder CA, PE. Prior to admission was taking NovoLog ss AC with Lantus 30 units @ HS. A1C on admission 7.3. Cr today 2.2, eGFR 29.91.
Patient is critically ill, remains intubated on ventilator and sedated.
POD # 5 s/p surgery for right thigh necrotizing fasciitis. Glycemic protocol insulin infusion stopped at 1pm 11/05.
11/07 Glucose range 77 to 84, required no low corrective insulin. Noted for current hypoglycemia throughout the night. Received no insulin or oral diabetes medications. Will cont to follow. Discussed with nurse.
Diabetes History
- -
Type of Diabetes: 2 requiring insulin
Pre-Admission Diabetes Regimen
11/07/24 11/07/24 11/07/24
08:18 13:35 21:03
Creatinine 1.9 H 2.1 H 2.2 H
11/08/24
02:58
Creatinine 2.1 H
Lab Results
Hemoglobin A1c 7.3 % (4.0-5.6) H 11/04/24 04:01
Insulin Pump Settings
IP Diabetes Regimen
11/07/24 11/07/24 11/07/24
08:18 12:46 13:35
Glucose 87 70
POC Glucose 76
11/07/24 11/07/24 11/07/24
19:02 19:52 20:51
Glucose
POC Glucose 64 L 142 H 99
11/07/24 11/07/24 11/07/24
21:03 21:58 22:54
Glucose 100 H
POC Glucose 78 84
11/08/24 11/08/24 11/08/24
01:43 02:02 02:58
Glucose 97
POC Glucose 51 L* 150 H
11/08/24
06:13
Glucose
POC Glucose 47 L*
Patient Education
--- NOTE | 2024-11-08 07:56 | W.PN.INTV ---
Addendum entered and electronically signed by Micheal Amador MD 11/08/24 12:46:
Patient seen and examined independently by myself. Resident note reviewed below. Agree with assessment and plan
Patient with significant worsening over the last 24 hours, anemic requiring discontinuation of heparin, transfusion. Worsening acidosis. Worsening hypotension
Vitals reviewed, exam unchanged although patient appears to be less responsive. Peripheral cyanosis noted
ABG pH 7.
Continues with CRRT
Data reviewed
A/P
Extensive discussion with family throughout the day yesterday, yesterday p.m. given events and again this morning.
Reviewed with , friend who is an oncology nurse and son
They would like to pursue withdrawal of care, comfort
Discussed process at length
Ongoing family discussion with sister who is now present
For now continue with supportive care although prognosis extremely poor
Reviewed at length with critical care nursing, respiratory care, pharmacy
Reviewed with primary service
TCCT 43 min
Original Note:
Today's Communication / Plan
Recommendations
After Dr. Amador discussed with family, decision was made to withdraw care
Discontiue CRRT, fluids, antibiotics, medications
Midazolam and fentanyl for comfort
Recommendations are not final until attending note/attestation
Assessment
-
In summary, 78 yo M with PMH n/f HTN, HLD, IDDM, PE, bladder cancer s/p TURBT p/w septic necrotizing fasciitis s/p debridement x2, with new RV thrombus, currently intubated, and receiving CRRT.
The most recent labs show worsening metabolic acidosis, unstable BP requiring 3 maximum pressors, bleeding that required transfusion overnight, and hypoglycemia requiring dextrose. This suggests poorer prognosis.
After Dr. Amador discussed with family, decision was made to withdraw care
Discontiue CRRT, fluids, antibiotics, medications
Midazolam and fentanyl for comfort
Recommendations are not final until attending note/attestation
Subjective Dataa
Subjective Data
Date of Service:
Date of Service: November 08, 2024
Subjective:
78 yo M with PMH n/f HTN, HLD, IDDM, PE, bladder cancer s/p TURBT p/w septic necrotizing fasciitis s/p debridement x2, with new RV thrombus, currently intubated and receiving CRRT.
Interim events: hgb drop overnight requiring 1 U pRBCs, unstable blood pressure requiring max 3 pressors. blood glucose drops requiring dextrose
Objective Data
Data Reviewed
Vital Signs / I&O / Oxygen:
Vital Signs
Temp Pulse Resp BP Pulse Ox
96.8 F L 80 20 127/36 93
11/08/24 07:35 11/08/24 06:00 11/08/24 06:00 11/08/24 02:30 11/08/24 04:00
Intake and Output
11/07/24 11/08/24 11/09/24
06:59 06:59 06:59
Intake Total 4679.8 / 4890.4 6460.7 / 6698.3 237.6 / 237.6
Output Total 4014 / 4210 5690 / 5838 148 / 148
Balance 665.8 / 680.4 770.7 / 860.3 89.6 / 89.6
SaO2 [A/C] 93
SaO2 92
Nasal Cannula flow liters per 6
minute
Physical Exam
General: Other (intubated/sedated)
Cardiovascular: Regular Rhythm and Other (no murmurs)
Respiratory: ET Tube
GI: Other (OG tube)
Neurology: Other (sedated)
Skin: Other (mottling of fingertips/toes; bandages on right thigh)
Labs/Micro/Reports
Lab Data
11/08/24 02:58
11/08/24 02:58
Laboratory Results
11/07/24 11/07/24 11/08/24
13:35 21:03 02:58
APTT 131.4 H 130.3 H
pH 7.07 L*
pCO2 38
pO2 92
HCO3 11.0 L*
O2 Delivery Level
Labs:
WBC 18.8
Hgb 9.6
Plt 97
PTT 130
AB.07, 38, 92
serum bicarbonate 9
Blood glucose 40-50s
Microbiology
11/05/24 05:58 Blood/Venous Blood Culture - Preliminary
No Growth in 72 hours- Final report to follow
11/05/24 04:16 Blood/Venous Blood Culture - Preliminary
No Growth in 72 hours- Final report to follow
11/03/24 21:57 Leg - Right Anaerobic Culture - Preliminary
Culture pending. Anaerobic cultures are examined after 3
days incubation. Additional information to follow.
11/03/24 21:57 Leg - Right Wound Culture - Preliminary
No growth
11/03/24 21:57 Leg - Right Gram Stain - Preliminary
11/04/24 10:26 Leg - Right Tissue Culture - Preliminary
Coagulase neg. staphylococcus
11/04/24 10:26 Leg - Right Gram Stain - Preliminary
11/03/24 15:44 Blood/Venous Blood Culture - Preliminary
Clostridium clostridioforme
11/03/24 15:44 Blood/Venous Gram Stain - Preliminary
11/03/24 15:44 Blood/Venous Blood Culture - Preliminary
Clostridium clostridioforme
11/03/24 15:44 Blood/Venous Gram Stain - Preliminary
11/03/24 15:44 Urine Urine Culture - Final
NO GROWTH
[2024-11-08] MEDS: NSS (PRESERVATIVE FREE) 10 ML IV (08:25)
[2024-11-08] MEDS: PROTONIX IV 40 MG IV (08:26)
--- NOTE | 2024-11-08 09:02 | W.PN.ID1 ---
Date of Service
Date of Service: November 08, 2024
Today's Communication
Prognosis grim.
Assessment / Plan
#Right thigh acute necrotizing fasciitis
# Clostridium clostridioforme bacteremia x 2 sets due to necrotizing fasciitis
# Septic shock due to necrotizing fasciitis, 3 pressors
# Hypothermic
# Leukocytosis
# Shock liver
#JALEN worse requiring CRRT
# New onset atrial fibrillation with right ventricular mass/thrombus
- 11/03, 11/04 status post OR I&D and fasciotomy.
- Tissue cultures: staph epi (skin contaminant)
- Repeat blood cultures neg to date
- Completed 3d clinda 900mg IV q8 as toxin inhibitor
- Continue Unasyn for now, adjusted for CRRT.
-Prognosis is grim. Pt continues to decline with progression of multi-organ system failure.
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
Diabetes mellitus
Neuropathy
Hypertension
Dyslipidemia
PE
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
Appendectomy
Chief Complaint
-: Other (Necrotizing fasciitis)
Subjective / Review of Systems
Critically ill on vent.
Vital Signs / Physical Exam
Vital Signs
Vital Signs
Temp Pulse Resp BP Pulse Ox
96.7 F L 80 20 127/36 93
11/08/24 08:00 11/08/24 06:00 11/08/24 06:00 11/08/24 02:30 11/08/24 04:00
Physical Exam
Constitutional: Acutely Ill
Cardiovascular: Regular Rate and S1/S2
Pulmonary: Rhonchi
Gastrointestinal: Soft, Distended and Normal Bowel Sounds
Extremities: Edema
Skin: Other (Cyanotic/ischemic - entire left hand; significant mottling abdomen, BLE,UE)
Objective Data
Lab Data
Lab Results
11/08/24 02:58
11/08/24 02:58
PT 19.3 Sec (11.4-14.6) H 11/03/24 23:54
INR 1.60 11/03/24 23:54
APTT 130.3 Sec (23.4-35.0) H 11/07/24 21:03
Estimated Creat Clear 37 ml/min 11/08/24 02:58
Lactic Acid 3.6 mmol/L (0.7-2.0) H 11/06/24 16:20
Total Bilirubin 4.1 mg/dl (0.2-1.3) H 11/08/24 02:58
AST 7341 U/L (17-59) H* 11/08/24 02:58
ALT 3088 U/L (0-50) H* 11/08/24 02:58
Alkaline Phosphatase 404 U/L (38-126) H 11/08/24 02:58
Amylase 39 U/L (30-110) 11/04/24 07:51
Most recent labs reviewed.
Micro Results:
11/05/24 05:58 Blood Culture - Preliminary
Blood/Venous No Growth in 72 hours- Final report to follow
11/05/24 04:16 Blood Culture - Preliminary
Blood/Venous No Growth in 72 hours- Final report to follow
11/03/24 21:57 Anaerobic Culture - Preliminary
Leg - Right Culture pending. Anaerobic cultures are examined after 3
days incubation. Additional information to follow.
11/03/24 21:57 Wound Culture - Preliminary
Leg - Right No growth
Gram Stain - Preliminary
11/04/24 10:26 Tissue Culture - Preliminary
Leg - Right Coagulase neg. staphylococcus
Gram Stain - Preliminary
11/03/24 15:44 Blood Culture - Preliminary
Blood/Venous Clostridium clostridioforme
Gram Stain - Preliminary
11/03/24 15:44 Blood Culture - Preliminary
Blood/Venous Clostridium clostridioforme
Gram Stain - Preliminary
11/03/24 15:44 Urine Culture - Final
Urine NO GROWTH
11/03/24 23:54 Nasal Screen MRSA (PCR) - Final
Nose MRSA not detected - performed by PCR methodology.
11/06/24 CXR: Overall, stable radiographic appearance from most recent radiograph. Parenchymal opacity medial left lower lung, with main differential considerations of atelectasis and/or pneumonia. Linear atelectasis within the right lower lung
--- NOTE | 2024-11-08 09:11 | W.PN.HOSP.TC ---
Today's Communication/Plan
-
Worsening status, requiring pressure support medications, blood transfusion
Assessment / Plan
Assessment / Plan
Physical Exam
General: Other (Intubated and sedated . Port in anterior chest wall, right jugular central line )
HEENT: Atraumatic and Other (ET tube )
Respiratory: Decreased Breath Sounds
Cardiac: S1/S2
GI: Soft and Nontender, distended but soft ( hernia)
Genito-urinary: Browne; Negative Bloody Urine
Musculoskeletal: peripheral mottling, right thing dressing with sanguineous discharge. Cyanosis of distals extremities.
Neuro: Other (Sedated )
Psych: Other (sedated
78 male presented with severe sepsis/ septic shock.
#Right thigh acute necrotizing fasciitis
# Clostridium Clostridioforme bacteremia x 2 sets due to necrotizing fasciitis
#Severe sepsis with lactic acidosis
# Septic shock
# Shocked liver
- Multiple organ failure
- Thrombocytopenia
- Hypoglycemia
c/w IV ABx
Escalation of need for pressure support medications
No fevers but hypothermia, WBC is elevated
Remains on pressure support medications with ongoing hemodialysis
Wound care per surgery.
Appreciate surgery, ID and ICU doctors help
# Anemia with thrombocytopenia due to combination of acute blood loss anemia, anemia of severe illness( shock), severe sepsis
s/p one unit of blood transfusion
Holding IV heparin gtt.
# Clostridium Clostridioforme bacteremia
Blood culture 11/05 is no growth
c/w IV ABx
# Acute hypoxic ventilatory dependent respiratory failure post op
Decreasing FiO2 and Peep so far, ABG noted with metabolic acidosis. c/w to be on elevated RR to help with acidosis.
Remained intubated post surgery 11/03 and 11/04
CXR was reviewed.
Appreciate pulmonary/ICU help
#JALEN with oligoric output with metabolic acidosis
Worsening acidemia
He was taking Advil and on lisinopril prior to presentation
Likely ATN due to sepsis
Hyperkalemia, s/p Lokelma
Started CRRT 11/05
s/p insulin gtt, now on SQ insulin Q 6 hours checks.
s/p volume replacement. Browne catheter
Maintain good volume and blood pressure status
Appreciate nephrology & ICU help
# Acute systolic heart failure, echo showed LVEF 30 to 35%. Continue pressure support. Echo also showed echodensity in the right ventricle, suspicious for thrombus. Was on IV heparin but held due to blood loss anemia.
Patient has history of PE and was on Eliquis in the past.
# Elevated CPK due to non traumatic rhabdomyolysis from muscle injury/ infection
# Hypocalcemia, replaced
# Hypokalemia, replaced.
# Sinus tachycardia, reactive, better today
# IDDM
s/p insulin IV protocol , now on Q 6 insulin sliding scale.
# DVT prophylaxis, Thrombo guards, GI prophylaxis
# Prognosis remains guarded. Code status DNR.
Total time spent to see the patient, examine the patient, review data and lab result, discuss treatment plan with consultants, nursing staff around 55 minutes
Anticipated Discharge: > 48 hours
Subjective/Interval History
-
Date of Service: November 08, 2024
Worsening clinical status, Bp, LFT and HGB over last 24 hours
Objective Data
-
Labs:
Laboratory Results
11/07/24 11/08/24 11/08/24
21:03 02:58 02:58
WBC 23.3 H 18.8 H Cancelled
Hgb 6.5 L* D 9.6 L D
Hct 20.3 L*
Plt Count 128 L D
APTT 130.3 H
HCO3
Sodium 134 L
Potassium 5.2 H
Chloride 104
Carbon Dioxide 9 L*
BUN 22 H
Creatinine 2.2 H
Glucose 100 H
Calcium 8.2 L
Total Bilirubin
AST
ALT
Alkaline Phosphatase
11/08/24 11/08/24 11/08/24
02:58 02:58 02:58
WBC
Hgb Cancelled
Hct 29.7 L Cancelled
Plt Count 97 L D Cancelled
APTT
HCO3 11.0 L*
Sodium 133 L
Potassium 5.2 H
Chloride 105
Carbon Dioxide 9 L*
BUN 20
Creatinine 2.1 H
Glucose 97
Calcium 8.2 L
Total Bilirubin 4.1 H
AST 7341 H*
ALT 3088 H*
Alkaline Phosphatase 404 H
Vital Signs:
Vital Signs
Temp Pulse Resp BP Pulse Ox
96.7 F L 80 20 127/36 93
11/08/24 08:00 11/08/24 06:00 11/08/24 06:00 11/08/24 02:30 11/08/24 04:00
I&O
11/07/24 11/08/24 11/09/24
06:59 06:59 06:59
Intake Total 4679.8 / 4890.4 6460.7 / 6698.3 475.2 / 475.2
Output Total 4014 / 4210 5690 / 5838 148 / 148
Balance 665.8 / 680.4 770.7 / 860.3 327.2 / 327.2
--- NOTE | 2024-11-08 09:16 | PTCARENOTE ---
09:00 left radial A/line removed. Pressure applied until bleeding stopped
--- NOTE | 2024-11-08 09:52 | PTCARENOTE ---
Blood Sugar 66; Dextrose 50% /12.5 gm given
[2024-11-08 09:57] LABS: Glucose - Point of Care 66 mg/dl (70-99)
--- NOTE | 2024-11-08 10:20 | PTCARENOTE ---
BP 74/39 MAP 51; UF off per physician order
--- NOTE | 2024-11-08 10:34 | W.PN.NEPH.PH ---
Today's Communication / Plan
-
cont CRRT till family makes decision
Assessment/Plan
-
IMP:
Severe sepsis
Necrotizing fascitis of right leg s/p debridement
Rhabdomyolysis
JALEN
L acidosis
New onset AF
RV thrombus
EF 30-35%
elevated LFTs
VDRF
HX IDDM
Benign HTN
HLD
HX PE
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
PORT at [facility]
h/o K stone
Plan:
CRRT continues
hypotension on max pressors , hold UF
severe acidosis despite IV bicarb and CRRT
family meeting with ICU now and plan to likely comfort care
follow BMP
may continue D5IVF for hypoglycemia
on heparin gtt for RV thrombus
abx for fasciitis
prognosis is grave
critical care time 31 minutes
d/w nursing
-
-
Date of Service: November 08, 2024
CC / HPI / ROS
-
Chief Complaint:
JALEN
History of Present Illness:
JALEN/Cr 2.1 on CRRT
critically ill in ICU on vent/pressors
intubated sedated
K normal
mild acidosis persists, bicarb of 9
multiple blisters of right leg
Review of Systems:
remains intubated, sedated
Labs
-
Labs:
WBC 18.8 10^3/uL (4.8-10.8) H 11/08/24 02:58
WBC Cancelled 11/08/24 02:58
RBC 3.08 10^6/uL (4.70-6.10) L 07/11/25 02:58
RBC Cancelled 11/08/24 02:58
Hgb 9.6 g/dL (13.0-18.0) L D 11/08/24 02:58
Hgb Cancelled 11/08/24 02:58
Hct 29.7 % (39.0-52.0) L 11/08/24 02:58
Hct Cancelled 11/08/24 02:58
Plt Count 97 10^3/uL (130-400) L D 11/08/24 02:58
Plt Count Cancelled 11/08/24 02:58
Sodium 133 mmol/L (135-145) L 11/08/24 02:58
Potassium 5.2 mmol/L (3.5-5.1) H 11/08/24 02:58
Chloride 105 mmol/L (98-107) 11/08/24 02:58
Carbon Dioxide 9 mmol/L (22-30) L* 11/08/24 02:58
BUN 20 mg/dl (9-20) 11/08/24 02:58
Creatinine 2.1 mg/dL (0.7-1.3) H 11/08/24 02:58
eGFR 31.63 11/08/24 02:58
Glucose 97 mg/dl (70-99) 11/08/24 02:58
Calcium 8.2 mg/dl (8.4-10.2) L 11/08/24 02:58
Phosphorus 6.5 mg/dl (2.5-4.5) H 11/08/24 02:58
Albumin 2.3 g/dl (3.5-5.0) L 11/08/24 02:58
Physical Exam
-
Vital Signs:
Vital Signs
Temp Pulse Resp BP Pulse Ox
96.5 F L 80 20 127/36 93
11/08/24 10:00 11/08/24 06:00 11/08/24 06:00 11/08/24 02:30 11/08/24 04:00
Cardiovascular:: Regular rate and rhythm
Respiratory:: Bilateral: Coarse
Lung Excursion:: Normal
Abdomen:: Nontender and Soft
Bowel Sounds:: None
Extremity Edema:: +3: Bilateral:
Browne Catheter: Yes
Other Findings::
dusky extremities
--- NOTE | 2024-11-08 11:21 | W.PN.UPDATE ---
Update Note
Progress Note Update
pt seen on CRRT
hypotensive on pressors
2k bath
stop UF
dialysate 1.5lit/hr
bld flow 250-300cc/min
--- NOTE | 2024-11-08 11:33 | OR.RPT ---
Operative Report
Operative Report
Patient Name: Kyle Angulo
: 1945
Date of Operation: 11/04/2024
Preoperative Diagnosis: Necrotizing fasciitis
Postoperative Diagnosis: Same
Procedure(s):
Excision and debridement of the right lower extremity
Surgeon(s):
Dr. Monk
[employer] Senior Project Manager(s):
None
Anesthesia: General
Estimated Blood Loss: 23 cc
Urine Output: Cc
Drains/Lines/Implants: None
Specimens: Proximal right adductor fascia for tissue culture
Indication for surgery:
This is a 78-year-old male with a history of hypertension, hyperlipidemia, diabetes, PE on Eliquis, appendectomy, urachal adenocarcinoma status post excision of the [place], partial cystectomy and lymphadenectomy with recurrence status post TURBT
and intravesicular chemotherapy who presented with altered mental status and fevers over the past 48 hours and right lower extremity pain. A CT scan demonstrated necrotizing infection of the leg. He underwent an emergent debridement by Dr. Baker
on the evening of 11/03/2024 after which he did not improve slightly however the next morning on rounds he was found to have worsening erythema extending in all directions so was consented for reexploration and wide debridement of presumed spreading
necrotizing fasciitis
Operative Findings: After placing the patient in a supine frog-leg position the right lower extremity was prepped and draped with Betadine from the lower right lower quadrant down to the knee of the right lower extremity and secured in place. The
previous United was removed. There were multiple areas of erythema extending distally along the medial/abductor compartments as well as posteriorly towards the buttocks, anteriorly towards the pubic area and superior laterally towards the proximal
anterior area/inguinal canal using sharp dissection the previously incision was extended towards these areas of erythema exposing the entire adductor compartment as well as part of the anterior compartment. There is patchy areas of muscle necrosis
and christiansen appearing fascial tissues which were excised where possible. The dissection extended superiorly anteriorly to the pubic bone and posteriorly into the gluteal fat where we encountered healthy nonaffected bleeding tissue however there was
some of the proximal gracilis that appeared somewhat dusky. The final dimensions of the wound were 35 cm long by 25 cm wide and extended down 8 cm to the femoral bone at the deepest point. The wound was then packed with 4 Dakin's soaked Kerlix
dressings in a wet-to-dry fashion, wrapped with ABDs and secured in place with further kerlix dressings. The patient was kept intubated and sedated but overall tolerated the procedure well and was returned to the ICU.
Details of the operation:
The patient was brought to the operating room and positioned in the supine frog-leg position with the medial and anterior right lower extremity fully exposed. The area of the thigh lower abdomen and proximal leg were all prepped with Betadine and
draped in the usual fashion. A timeout was performed. The previous United drain was removed. We began by extending the dissection inferiorly towards the knee as well as superiorly towards the inguinal ligament as well as anteriorly towards an
area of erythema in the proximal anterior thigh. We encountered some patchy areas of muscle necrosis as well as dusky appearing fascial tissues which were excised. There was also a copious amount of dishwater/christiansen-colored fluid. At the superior
aspect we had to wire incision superiorly towards the pubic bone as well as posteriorly into the gluteal fat until we reached healthy nonaffected bleeding tissue. Nevertheless there was some proximal gracilis that appeared somewhat dusky. Care was
taken to open up all the medial/adductor compartments and some of the tissue was sent as a specimen. The final dimensions of the wound were 35 cm long by 25 cm wide and extended down roughly 8 cm to the femoral bone at the deepest point the wound
was then packed with Dakin soaked Kerlix dressings in a wet-to-dry fashion, wrapped with ABDs and secured in place with further Kerlix dressings. The patient was kept intubated and sedated given the high possibility of having to return to the OR
but he overall tolerated the procedure well and was returned to the ICU with a very guarded prognosis given the extent of his infection.
I was the attending physician and performed the procedure with no assistance. I was present for all portions of the case
Miko Monk MD
--- NOTE | 2024-11-08 11:34 | W.PN.UPDATE ---
Update Note
Progress Note Update
Extensive discussion with family including son, and family friend who is a oncology nurse. Reviewed clinical course at length.
Patient has taken a turn for the worse significantly over the last 24 hours, increased acidemia, maxed on 3 pressors, less responsive
Hypoglycemia noted requiring multiple doses of glucose, anemia noted, heparin discontinued, received 1 unit of blood yesterday
Family aware of extremely poor prognosis
They are requesting withdrawal of care
Had many questions regarding process of withdrawal of care
Explained at length
Moving forward
Discontinue CRRT
Versed, fentanyl for comfort measures
Discontinue pressors, antibiotics, all medications except those targeted for comfort
Assess for withdrawal from ventilator thereafter depending on status
Computer Installation Engineer has been requested for last rights
Reviewed at length with critical care nursing, respiratory care, pharmacy
Reviewed with primary service
TCCT 35 min
--- NOTE | 2024-11-08 12:39 | CHAP ---
Emotional and spiritual support provided, prayer blanket given, end of life prayers shared.
[2024-11-08] MEDS: SUBLIMAZE 100 MCG IV (12:41)
[2024-11-08] MEDS: VERSED 2 MG IV (12:41)
--- NOTE | 2024-11-08 12:43 | PTCARENOTE ---
- 0700 Assumed care at 07:00 Patient Intubated and Sedated. On CRRT; B/l Wrist soft Restraints . left Radial A/line
- Levophed DC 30mcg+ Dev 300 + Vaso 0.03 --- ; Fentanyl 100mcg Precedex 0.07; Bicarb/D5W 100/hr; Infusing via RT IJ TL.
- ETT: # 8/25 cm RT lip; Vent: AC 40% +5/500/18; POX91% .
- blood pressure checked via RT upper arm. left [place] poor waive form, poor blood return. B/l hand cyanotic . A/line removed
- Precedex decreased to 0.4 pt shortly after became agitated and restless. Had to turn Precedex back to 0.7
- RT groin wound copies drainage . Wrapped with CJ wrap
--- NOTE | 2024-11-08 12:52 | PTCARENOTE ---
Family decided to proceed with comfort care. CRRT turned off. All infusion qtts turned off. Midazolam and Fentanyl given for comfort Family at bedside
--- NOTE | 2024-11-08 13:58 | W.PN.DEATH ---
Pronouncement of
-
Called to see patient to pronounce.
No spontaneous heart tones or respirations noted.
Patient not responsive to verbal stimuli.
Patient is pronounced .
Time of : 13:39
Date of : 11/08/24
Family Notified: Yes
--- NOTE | 2024-11-08 14:00 | W.DCSUMMARY ---
Discharge Summary
Discharge Data
Date of Admission: 11/03/24
Date of Discharge: 11/08/24
-
Pending Results: No
Hospital Course
78-year-old male with complex medical history including bladder cancer, history of pulmonary embolism, diabetes, hypertension presented with feeling unwell, weakness, fevers, low urine out put, nausea and vomiting for few days duration. Patient met
criteria of severe sepsis. he also had multiple organ involvement with sepsis including hypoxia. He was found to have necrotizing fasciitis of right upper leg. surgery was called immediately patient was taken to the OR for incision and drainage.
Patient was admitted to the intensive care unit. Patient remained intubated and requiring pressure support medications. Patient was receiving broad-spectrum intravenous antibiotic. He was followed by slip caster, Infectious diseases sap security consultant
and surgery. Patient went to the OR again for further debridement of his right thigh wound. Patient received intravenous fluid. Patient started to have oligoanuric renal failure with no improvement despite hydration. He was followed by
nephrology. He was started on continuous renal replacement therapy. Patient continued to require ventilatory support. He remained intubated receiving intravenous medications. He had echocardiogram and seem to have right ventricular thrombus.
He was started on intravenous heparin. His diabetes was managed by ICU insulin protocol. Patient had a frequent blood work. He started to have acute blood loss anemia with thrombocytopenia due to severe sepsis. Intravenous heparin was
discontinued. Blood culture showed clostridia clostridioforme bacteremia. patient remained in persistent septic shock. He started to have multiple organ failure with shock liver, thrombocytopenia, anemia. he required blood transfusion. Patient
continued to have circulatory failure and he needed high doses of multiple pressure support medications. He had a profound acidemia. Goal of care was discussed with the family. Family received regular updates and decided to make the patient DO
NOT RESUSCITATE. With lack of improvement, family decided to withdraw care. Patient peacefully immediately after stopping pressors. Help and supports were offered to the family.
Discharge Plan
-
Patient Disposition:
Referrals:
Tia Chavarria DO [Family Provider, [facility]]
Prescriptions:
No Action
rosuvastatin 10 MG tablet
10 mg PO HS
lisinopril 10 MG tablet
10 mg PO HS
aspirin 81 mg Tablet,Delayed Release (Dr/Ec)
81 mg PO HS
ibuprofen [Advil] 200 mg Tablet
400 mg PO TIDPRN PRN (Reason: mild pain)
insulin aspart U-100 [Novolog FlexPen U-100 Insulin] 100 unit/mL (3 mL) insulin pen
0 sliding scale dose SC AC
Patient Comments:
11/03/2024, pt. uses a sliding scale dose before meals; however, he doesn't know what that sliding scale is; pt. injected 15 units twice today with his meals per pt.
insulin glargine [Lantus Solostar U-100 Insulin] 100 unit/mL (3 mL) insulin pen
30 unit SC HS
Discharge Date and Time
Print Language: [place] K[place]
--- NOTE | 2024-11-08 15:00 | PTCARENOTE ---
patient passed at 13:39. Family (, son, and [id number] ) at bedside. All person belongings packed by pt's family. left Tunnel cath, RT IJ, Indwelling Browne, Fecal Management removed. Patient extubated by RT, [place] tube removed. [facility] [employer]
notified . Patient not qualifying to be candidate for organ donation due to current bladder cancer . Post Mortal care done per hospital protocol .
--- NOTE | 2024-11-08 15:25 | CM ---
Patient on this date, 11/08/24 @ 13:39. t
[2024-11-11 11:05] LABS: Glucose - Point of Care 29 mg/dl (70-99)
[2024-11-11 11:06] LABS: Glucose - Point of Care 102 mg/dl (70-99)
== END 2024-11-08 13:39 | disposition expired | DRG 853 ==
LOC: ICU 18:13
PROVIDERS: Hospitalist; Internal Medicine Critical Care Medicine; Nurse Practitioner Family; Physician Assistant Medical; Radiology Vascular & Interventional Radiology; Specialist; Surgery; ADMITTING PHYSICIAN Internal Medicine; ATTENDING PHYSICIAN Internal Medicine; CONSULT PHYSICIAN Internal Medicine; CONSULT PHYSICIAN Internal Medicine Cardiovascular Disease; CONSULT PHYSICIAN Surgery; EMERGENCY PHYSICIAN Emergency Medicine; FAMILY PHYSICIAN Family Medicine; OTHER PHYSICIAN Internal Medicine Critical Care Medicine; OTHER PHYSICIAN Internal Medicine Infectious Disease
PROC: 0J9N0ZZ Drainage of Right Lower Leg Subcutaneous Tissue and Fascia, Open Approach (ICD-10-PCS; 2024-11-03)
PROC: 5A1955Z Respiratory Ventilation, Greater than 96 Consecutive Hours (ICD-10-PCS; 2024-11-04)
PROC: 0KBS0ZZ Excision of Right Lower Leg Muscle, Open Approach (ICD-10-PCS; 2024-11-04)
PROC: 0BH17EZ Insertion of Endotracheal Airway into Trachea, Via Natural or Artificial Opening (ICD-10-PCS; 2024-11-04)
PROC: 5A1D90Z Performance of Urinary Filtration, Continuous, Greater than 18 hours Per Day (ICD-10-PCS; 2024-11-05)
PROC: 02HV33Z Insertion of Infusion Device into Superior Vena Cava, Percutaneous Approach (ICD-10-PCS; 2024-11-05)
PROC: 30233N1 Transfusion of Nonautologous Red Blood Cells into Peripheral Vein, Percutaneous Approach (ICD-10-PCS; 2024-11-07)
DX: A41.59 Other Gram-negative sepsis (principal); I50.21 Acute systolic (congestive) heart failure; J95.821 Acute postprocedural respiratory failure; K72.00 Acute and subacute hepatic failure without coma; M72.6 Necrotizing fasciitis; R65.21 Severe sepsis with septic shock; M62.82 Rhabdomyolysis; N17.9 Acute kidney failure, unspecified; E87.20 Acidosis, unspecified; I42.9 Cardiomyopathy, unspecified; D62 Acute posthemorrhagic anemia; Z66 Do not resuscitate; Z51.5 Encounter for palliative care; E78.00 Pure hypercholesterolemia, unspecified; E11.42 Type 2 diabetes mellitus with diabetic polyneuropathy; I48.0 Paroxysmal atrial fibrillation; E11.65 Type 2 diabetes mellitus with hyperglycemia; E87.5 Hyperkalemia; D69.59 Other secondary thrombocytopenia; Y83.8 Other surgical procedures as the cause of abnormal reaction of the patient, or of later complication, without mention of misadventure at the time of the procedure; E83.51 Hypocalcemia; I11.0 Hypertensive heart disease with heart failure; E11.649 Type 2 diabetes mellitus with hypoglycemia without coma; Z11.52 Encounter for screening for COVID-19; Z79.4 Long term (current) use of insulin; Z79.82 Long term (current) use of aspirin; Z79.899 Other long term (current) drug therapy; Z85.51 Personal history of malignant neoplasm of bladder; Z86.711 Personal history of pulmonary embolism; Z87.891 Personal history of nicotine dependence
CPT/HCPCS: 36556; 71045; 74176; 76937; 80048; 80053; 80076; 80202; 81003; 81015; 82150; 82248; 82330; 82550; 82553; 82805; 82962; 83036; 83605; 83690; 83735; 84075; 84100; 85014; 85018; 85025; 85027; 85384; 85610; 85730; 86850; 86900; 86901; 86920; 87040; 87070; 87075; 87076; 87086; 87147; 87176; 87186; 87205; 87641; 87811; 93005; 93306; 94002; 94003; 96365; 96375; 99291; P9016; P9047